=== PATIENT | female | born 1985 | race Caucasian/White ===

== ENCOUNTER 2018-03-09 04:33 | Emergency (ER) | payer OTHER, SELFPAY ==
[2018-03-09 05:00] LABS: Absolute Lymphocytes (CBC) 3.1 K/uL (0.7-4.9); Absolute Monocytes 0.6 K/uL (0.1-1.3); Absolute Neutrophil 4.7 K/uL (1.8-8.0); Basophils % 0.9 % (0-1.3); Eosinophils % 2.6 % (0-4.4); MCH 29.4 pg (27.0-35.0); MCV 86.9 fL (80-100); MPV 7.5 fL (7.6-11.3); Monocytes % 6.5 % (3.3-12.3); RBC Red Blood Cell Count 4.49 M/uL (3.86-4.86)
[2018-03-09] MEDS ORDERED: KETOROLAC 30 MG/ML INJ ONE (05:00)
[2018-03-09] MEDS ORDERED: METHYLPREDNISOLONE 125 MG INJ ONE (05:00)
[2018-03-09 05:07] LABS: Protime INR 0.99
[2018-03-09 05:20] LABS: ALT/SGPT 20 U/L (12-78); AST/SGOT 10 U/L (15-37); Albumin 3.3 g/dL (3.4-5.0); Alkaline Phosphatase 88 U/L (45-117); BUN Blood Urea Nitrogen 12 mg/dL (7-18); Bicarbonate 28 mmol/L (21-32); Bilirubin Direct < 0.1 mg/dL (0-0.2); Bilirubin Total 0.2 mg/dL (0.2-1.0); Glucose Level 95 mg/dL (74-106); Magnesium 1.9 mg/dL (1.8-2.4); NT PRO-BNP 98 pg/mL (<125); Potassium 3.8 mmol/L (3.5-5.1); Protein, Total 6.6 g/dL (6.4-8.2); Sodium Level 141 mmol/L (136-145)
--- NOTE | 2018-03-09 06:48 | EKG ---
Test Date: 2018-03-09 Test Time: 04:45:57 Block Mason: ARNIE MEASUREMENT RESULTS: Intervals: Rate: 66 KS: 192 QRSD: 96 QT: 432 QTc: 452 [place]: P: 48 KS: 192 QRS: 103 T: 60 INTERPRETIVE STATEMENTS: Normal sinus rhythm Rightward axis Nonspecific ST and T wave abnormality Abnormal ECG No previous ECG available for comparison Electronically Signed On 03-09-18 06:47:28 CDT by Miguel A Rodrigez
--- NOTE | 2018-03-09 07:19 | EDPHYS ---
Physician Documentation [facility] Name: Mony Jones Age: 32 yrs Sex: Female : 1985 Arrival Date: 03/09/2018 Time: 04:33 Bed 7 Private MD: ED Physician Andrew Yusuf HPI: 03/09 04:53 This 32 yrs old Female presents to ER via Ambulatory with complaints of PAIN kdr IN CHEST. 04:53 The patient or guardian reports chest pain that is located primarily in the anterior kdr chest wall, right. The pain does not radiate. Associated signs and symptoms: The patient has no apparent associated signs or symptoms. The chest pain is described as sharp, stabbing. Duration: The patient or guardian reports multiple episodes, that are intermittent, that wax and wane, with no pattern. Modifying factors: The symptoms are alleviated by nothing. the symptoms are aggravated by nothing. Severity of pain: At its worst the pain was mild moderate just prior to arrival. The patient has not experienced similar symptoms in the past. The patient has not recently seen a physician. Pain began at 1800 last night. 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 - Social history:: Smoking status: Patient uses tobacco products, smokes one pack cigarettes per day. Patient/guardian denies using alcohol, street drugs. - Ebola Screening: : No symptoms or risks identified at this time. ROS: 04:53 Constitutional: Negative for fever, chills, and weight loss, Eyes: Negative for injury, kdr pain, redness, and discharge, ENT: Negative for injury, pain, and discharge, Neck: Negative for injury, pain, and swelling, Respiratory: Negative for shortness of breath, cough, wheezing, and pleuritic chest pain, Abdomen/GI: Negative for abdominal pain, nausea, vomiting, diarrhea, and constipation, Back: Negative for injury and pain, : Negative for injury, bleeding, discharge, and swelling, MS/Extremity: Negative for injury and deformity, Skin: Negative for injury, rash, and discoloration, Neuro: Negative for headache, weakness, numbness, tingling, and seizure activity. Psych: Negative for depression, anxiety, suicide ideation, homicidal ideation, and hallucinations, Allergy/Immunology: Negative for hives, rash, and allergies, Endocrine: Negative for neck swelling, polydipsia, polyuria, polyphagia, and marked weight changes, Hematologic/Lymphatic: Negative for swollen nodes, abnormal bleeding, and unusual bruising. 04:53 Cardiovascular: Positive for chest pain, Negative for edema, orthopnea, palpitations, paroxysmal nocturnal dyspnea. Exam: 04:53 Constitutional: This is a well developed, well nourished patient who is awake, alert, kdr and in no acute distress. Head/Face: Normocephalic, atraumatic. Eyes: Pupils equal round and reactive to light, extra-ocular motions intact. Lids and lashes normal. Conjunctiva and sclera are non-icteric and not injected. Cornea within normal limits. Periorbital areas with no swelling, redness, or edema. Neck: Trachea midline, no thyromegaly or masses palpated, and no cervical lymphadenopathy. Supple, full range of motion without nuchal rigidity, or vertebral point tenderness. No Meningismus. Chest/axilla: Normal chest wall appearance and motion. Nontender with no deformity. No lesions are appreciated. Cardiovascular: Regular rate and rhythm with a normal S1 and S2. No gallops, murmurs, or rubs. Normal PMI, no JVD. No pulse deficits. Respiratory: Lungs have equal breath sounds bilaterally, clear to auscultation and percussion. No rales, rhonchi or wheezes noted. No increased work of breathing, no retractions or nasal flaring. Abdomen/GI: Soft, non-tender, with normal bowel sounds. No distension or tympany. No guarding or rebound. No evidence of tenderness throughout. Back: No spinal tenderness. No costovertebral tenderness. Full range of motion. Skin: Warm, dry with normal turgor. Normal color with no rashes, no lesions, and no evidence of cellulitis. MS/ Extremity: Pulses equal, no cyanosis. Neurovascular intact. Full, normal range of motion. Neuro: Awake and alert, GCS 15, oriented to person, place, time, and situation. Cranial nerves II-XII grossly intact. Motor strength 5/5 in all extremities. Sensory grossly intact. Cerebellar exam normal. Normal gait. Psych: Awake, alert, with orientation to person, place and time. Behavior, mood, and affect are within normal limits. Vital Signs: 04:47 BP 140 / 78; Pulse 65; Resp 16 S; Temp 97.9(O); Pulse Ox 97% on R/A; Weight 127.01 kg bb (R); Height 5 ft. 6 in. (167.64 cm) (R); Pain 5/10; 05:36 BP 126 / 72; Pulse 60; Resp 14; Pulse Ox 95% ; bp 06:41 BP 128 / 74; Pulse 51; Resp 13; Pulse Ox 95% ; bp 04:47 Body Mass Index 45.19 (127.01 kg, 167.64 cm) bb MDM: 04:53 Data reviewed: vital signs, nurses notes, lab test result(s), EKG, radiologic studies. kdr Counseling: I had a detailed discussion with the patient and/or guardian regarding: the historical points, exam findings, and any diagnostic results supporting the discharge/admit diagnosis, lab results, radiology results, the need for outpatient follow up. 07:18 Patient medically screened. kdr 03/09 04:48 Order name: Basic Metabolic Panel; Complete Time: 07:11 kdr 03/09 04:48 Order name: CBC with Diff; Complete Time: 07: kdr 03/09 04:48 Order name: LFT's; Complete Time: 07: kdr 03/09 04:48 Order name: Magnesium; Complete Time: 07:11 kdr 03/09 04:48 Order name: NT PRO-BNP; Complete Time: 07:11 kdr 03/09 04:48 Order name: PT-INR; Complete Time: 07:11 kdr 03/09 04:48 Order name: Ptt, Activated; Complete Time: 07:11 kdr 03/09 04:48 Order name: Troponin (emerg Dept Use Only); Complete Time: 07:11 kdr 03/09 04:48 Order name: XRAY Chest (1 view) kdr 03/09 04:48 Order name: EKG; Complete Time: 04:49 kdr 03/09 04:48 Order name: Cardiac monitoring; Complete Time: 04:49 kdr 03/09 04:48 Order name: EKG - Nurse/Tech; Complete Time: 04:49 [facility] 03/09 04:48 Order name: IV Saline Lock; Complete Time: 04:52 kdr 03/09 04:48 Order name: Labs collected and sent; Complete Time: 04:52 kdr 03/09 04:48 Order name: O2 Per Protocol; Complete Time: 04:49 [facility] 03/09 04:48 Order name: O2 Sat Monitoring; Complete Time: 04:50 kdr Administered Medications: 05:01 Drug: TORadol 30 mg Route: IVP; Site: right antecubital; bp 05:04 Follow up: Response: Pain is decreased bp 05:01 Drug: SOLU-Medrol 125 mg Route: IVP; Site: right antecubital; bp 05:03 Follow up: Response: No adverse reaction bp 07:30 Drug: Flexeril 10 mg Route: PO; sg Disposition: 03/09/18 07:18 Discharged to Home. Impression: Chest pain, unspecified. - Condition is Stable. - Discharge Instructions: Nonspecific Chest Pain, [id number]. - Prescriptions for Tramadol 50 mg Oral Tablet - take 1 tablet by ORAL route every 8 hours as needed; 12 tablet. - Work release form, Medication Reconciliation Form, Thank You Letter form. - Follow up: Private Physician; When: 2 - 3 days; Reason: If symptoms return, Further diagnostic work-up, Recheck today's complaints, Continuance of care, Re-evaluation by your physician. - Problem is new. - Symptoms have improved. Signatures: Dispatcher [employer] Kendell Rodríguez RN RN Andrew Bland MD MD kdr Ballard, Brenda, RN RN Yayo Gonzalez MD MD gs Peltier, Brian, RN RN bp Corrections: (The following items were deleted from the chart) 07:33 07:18 03/09/2018 07:18 Discharged to Home. Impression: Chest pain, unspecified. sg Condition is Stable. Forms are Medication Reconciliation Form, Thank You Letter, Antibiotic Education, Prescription Opioid Use. Follow up: Private Physician; When: 2 - 3 days; Reason: If symptoms return, Further diagnostic work-up, Recheck today's complaints, Continuance of care, Re-evaluation by your physician. Problem is new. Symptoms have improved. kdr
--- NOTE | 2018-03-09 07:19 | ER ---
Nurse's Notes [facility] Name: Mony Jones Age: 32 yrs Sex: Female : 1985 Arrival Date: 03/09/2018 Time: 04:33 Bed 7 Private MD: Diagnosis: Chest pain, unspecified Presentation: 03/09 04:44 Presenting complaint: Patient states: she started having right sided, non-radiating bb chest pain at approx 1800 last night. the pain is sharp and intermittent on 5 minute intervals, pt was not doing anything when the pain started denies N/V/D, SOB, said she came to ED because the pain is not going away. did not take any medications. Transition of care: patient was not received from another setting of care. Onset of symptoms was March 08, 2018 at 18:00. Risk Assessment: Do you want to hurt yourself or someone else? Patient reports no desire to harm self or others. Initial Sepsis Screen: Does the patient meet any 2 criteria? No. Patient's initial sepsis screen is negative. Does the patient have a suspected source of infection? No. Patient's initial sepsis screen is negative. Care prior to arrival: None. 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 - Social history:: Smoking status: Patient uses tobacco products, smokes one pack cigarettes per day. Patient/guardian denies using alcohol, street drugs. - Ebola Screening: : No symptoms or risks identified at this time. Screenin:02 Abuse screen: Denies threats or abuse. Denies injuries from another. Nutritional bp screening: No deficits noted. Tuberculosis screening: No symptoms or risk factors identified. Fall Risk None identified. Assessment: 04:50 General: Appears in no apparent distress. comfortable, obese, Behavior is calm, bp cooperative, appropriate for age. Pain: Denies pain. Neuro: Level of Consciousness is awake, alert, obeys commands, Oriented to person, place, time, situation, Appropriate for age. Cardiovascular: Rhythm is sinus rhythm. Respiratory: Airway is patent Respiratory effort is even, unlabored, Respiratory pattern is regular, symmetrical. GI: No signs and/or symptoms were reported involving the gastrointestinal system. : No signs and/or symptoms were reported regarding the genitourinary system. EENT: No deficits noted. Derm: No deficits noted. Musculoskeletal: Circulation, motion, and sensation intact. Range of motion: intact in all extremities. 05:35 Reassessment: ALL CURRENT ORDERS COMPLETED, VS STABLE ON MONITOR. bp 06:40 Reassessment: DISPO PENDING, PT RESTING QUIETLY, VS STABLE, SR WITH INTERMITTENT SB ON bp MONITOR. Vital Signs: 04:47 BP 140 / 78; Pulse 65; Resp 16 S; Temp 97.9(O); Pulse Ox 97% on R/A; Weight 127.01 kg bb (R); Height 5 ft. 6 in. (167.64 cm) (R); Pain 5/10; 05:36 BP 126 / 72; Pulse 60; Resp 14; Pulse Ox 95% ; bp 06:41 BP 128 / 74; Pulse 51; Resp 13; Pulse Ox 95% ; bp 04:47 Body Mass Index 45.19 (127.01 kg, 167.64 cm) bb ED Course: 04:33 Patient arrived in ED. es 04:38 Andrew Yusuf MD is Attending Physician. kdr 04:42 Declan Elliott, RN is Primary Nurse. bp 04:46 Triage completed. bb 04:47 Arm band placed on Patient placed in an exam room, on a stretcher, on desk monitor, bb on pulse oximetry. EKG completed in triage. Results shown to MD. 04:52 Inserted saline lock: 20 gauge in left antecubital area, using aseptic technique. Blood bp collected. 05:02 Patient has correct armband on for positive identification. Placed in gown. Bed in low bp position. Call light in reach. Side rails up X2. 05:03 phototypesetting equipment monitor on. Pulse ox on. NIBP on. bp 05:10 X-ray completed. Portable x-ray completed in exam room. Patient tolerated procedure kw well. 05:11 XRAY Chest (1 view) In Process Unspecified. EDMS 07:33 No provider procedures requiring assistance completed. IV discontinued, intact, sg bleeding controlled, No redness/swelling at site. Pressure dressing applied. Administered Medications: 05:01 Drug: TORadol 30 mg Route: IVP; Site: right antecubital; bp 05:04 Follow up: Response: Pain is decreased bp 05:01 Drug: SOLU-Medrol 125 mg Route: IVP; Site: right antecubital; bp 05:03 Follow up: Response: No adverse reaction bp 07:30 Drug: Flexeril 10 mg Route: PO; sg Outcome: 07:18 Discharge ordered by . kdr 07:32 Discharged to home ambulatory, with family. sg 07:32 Condition: good 07:32 Discharge instructions given to patient, Instructed on discharge instructions, follow up and referral plans. medication usage, safety practices, Demonstrated understanding of instructions, follow-up care, medications, Prescriptions given X 1. 07:33 Patient left the ED. sg Signatures: Dispatcher [employer] Kendell Rodríguez RN RN sg Andrew Yusuf MD MD kdr Salyer, Edna es Ballard, Brenda RN RN Sharon Westfall Brian RN RN bp
[2018-03-09] MEDS ORDERED: CYCLOBENZAPRINE 10 MG TAB ONE (07:30)
[2018-03-09 07:38] VITALS: TEMP 97.9
[2018-03-09 07:39] VITALS: O2SAT 95
[2018-03-09 07:40] VITALS: BP 128/74
--- NOTE | 2018-03-09 08:15 | RAD REPORT ---
EXAM DESCRIPTION: Lynn Single View03/09/2018 5:13 am CLINICAL HISTORY: Chest pain COMPARISON: September 2017 FINDINGS: The lungs appear clear of acute infiltrate. The heart is mildly enlarged IMPRESSION: No acute abnormalities displayed
== END 2018-03-09 07:33 | disposition home or self-care (01) ==
LOC: ER 04:33
DX: R07.9 Chest pain, unspecified (principal); F17.210 Nicotine dependence, cigarettes, uncomplicated
CPT/HCPCS: 36415; 71045; 80048; 80076; 83735; 83880; 84484; 85025; 85610; 85730; 93005; 96374; 96375; 99284; J2930

== ENCOUNTER 2024-01-08 06:50 | Inpatient (IN) | payer OTHER, SELFPAY ==
--- OUTSIDE RECORDS SUMMARY | 2024-01-08 06:55 | XMS REPORT | Continuity of Care Document ---
Author Name Unknown Address [address] [place] [address] [facility] Address [address] [place] [address] Care Team Providers Care Content Strategy Lead Name Role Phone Pcp, Patient Does Not Have A Primary Care Physic hany Lucita Jason Attending Clinician Unavail able Deb Garcia Attending Clinician Unavailable MERARY HADLEY Attending Clinician Unavailable Troy Louis Attending Clinician Unavailable UNKNOWN Attending Clinician Unavailable Delta Barriga Attending Clinician Unavailable Doctor Unassigned, [place] Attending Clinician U Kvng Temple Attending Clinician + [phone] YASMIN BELTRE Attending Clinician Unavailable Yasmin Beltre PA-C Attending Clinician [phone], [facility] Lab Attending Clinician Unavailable MERARY HADLEY Admitting Clinician Unavailable Troy Louis Admitting Clinician Unavailable Delta Barriga Admitting Clinician Unavailable YASMIN BELTRE Admitting Clinician Unavailable Payers Payer Name Policy Type Policy Number Effective Date Expirati on Date Source [facility] Gold 53 [id number] 2023 00:00:00 [facility] Gold 53 [id number] [facility] Problems Condition Name Condition Details Condition Category Status Onset Date Resolution Date Last Treatment Date Treating Clinician Comments Source Morbid obesity with body mass index of 50 or higher Morbid obesity with body mass index of 50 or higher Disease Active 10-17 00:00: 00 [facility] [id number] Hypersomni a Problem [facility] [id number] Morbid (severe) obesity due to excess calories Problem [facility] [id number] Body mass index [BMI] 50.0-59.9, adult Problem [facility] [id number] Severe major depression Problem [facility] Tobacco user Smokes 1 pack of cigarettes per day Problem [facility] [id number] Multiple subsegment al pulmonary emboli without acute cor pulmonale Problem [facility] [id number] Presence of vena cava filter Problem [facility] [id number] Atypical squamous cells cannot exclude high grade squamous intraepith elial lesion on cytologic smear of cervix (ASC-H) Problem [facility] Allergies, Adverse Reactions, Alerts Allergy Name Allergy Type Status Severity Reaction(s) Onset Date Inactive Date Treating Clinician Comments Source heparin DA Active U Heparin induced antibody + 2021-08 2- 00:00: 00 [facility] No Known Allergie s DA Active U 2021-08 0 00:00: 00 [facility] NO KNOWN ALLERGIE S Drug Class Active [facility] heparin heparin Active Unknown [facility] Social History Social Habit Start Date Stop Date Quantity Comments Source Sex Assigned At [facility] History of Tobacco Use Current Smoker [facility] Exposure to SARS-CoV-2 (event) 2022-04-12 00:00:00 2022-04-22 09:57:00 Not sure [facility] Cigarettes smoked current (pack per day) - Reported 2022-04-22 00:00:00 2022-04-22 00:00:00 [facility] Tobacco use and exposure 2022-04-22 00:00:00 2022-04-22 00:00:00 Smokeless tobacco non-user [facility] Alcohol intake 2022-04-22 00:00:00 2022-04-22 00:00:00 Ex-drinker (finding) [facility] Smoking Status Start Date Stop Date Source Former Smoker 2023-12-24 00:00:00 2023-12-24 00:00:00 [facility] Current Smoker 2022-09-30 00:00:00 [facility] Medications Ordered Medication Name Filled Medication Name Start Date Stop Date Current Medication? Ordering Clinician Indication Dosage Frequency Signature (SIG) Comments Components Source Lasix 20 MG Lasix 20 MG 12-23 00:00: 00 No 1{table t} QD Lasix 20 MG Eliquis 5 MG Eliquis 5 MG 09-01 00:00: 00 No 1{table t} BID Eliquis 5 MG Eliquis 5 MG Eliquis 5 MG 09-01 00:00: 00 No 1{table t} BID Eliquis 5 MG Wellbutrin XL 300 MG Wellbutrin XL 300 MG 05-08 00:00: 00 No 1{table t_in_th e_morni ng} QD Wellbutrin XL 300 MG Wellbutrin XL 300 MG Wellbutrin XL 300 MG 2021-0 05-08 00:00: 00 No 1{table t_in_th e_morni ng} QD Wellbutrin XL 300 MG Wellbutrin XL 300 MG Wellbutrin XL 300 MG 2021-0 05-08 00:00: 00 No 1{table t_in_th e_morni ng} QD Wellbutrin XL 300 MG Wellbutrin XL 300 MG Wellbutrin XL 300 MG 2021-0 05-08 00:00: 00 No 1{table t_in_th e_morni ng} QD Wellbutrin XL 300 MG Wellbutrin XL 300 MG Wellbutrin XL 300 MG 05-08 00:00: 00 No 1{table t_in_th e_morni ng} QD Wellbutrin XL 300 MG Wellbutrin XL 300 MG Wellbutrin XL 300 MG 05-08 00:00: 00 No 1{table t_in_th e_morni ng} QD Wellbutrin XL 300 MG miSOPROStoL 200 mcg tablet 04-22 00:00: 00 Yes [id number] Take one tablet night before procedure, then take one tablet morning of procedure [facility] Wellbutrin XL 150 MG Wellbutrin XL 150 MG 04-10 00:00: 00 No 1{table t_in_th e_morni ng} QD Wellbutrin XL 150 MG buPROPion XL 150 mg 24 hr tablet 04-10 00:00: 00 Yes 150mg Take 150 mg by mouth every morning. [facility] Dexamethaso ne Dexamethaso ne 09-25 00:00: 00 No 8mg [facility] Dexamethaso ne Dexamethaso ne 09-25 00:00: 00 No 8mg [facility] Dexamethaso ne Dexamethaso ne 09-25 00:00: 00 No 8mg [facility] Dexamethaso ne Dexamethaso ne 09-25 00:00: 00 No 8mg [facility] Dexamethaso ne Dexamethaso ne 09-25 00:00: 00 No 8mg [facility] Dexamethaso ne Dexamethaso ne 09-25 00:00: 00 No 8mg [facility] naproxen sodium 550 mg tablet 2016-08 00:00: 00 Yes 550mg Take 1 tablet by mouth 2 (two) times daily with meals. [facility] cyclobenzap rine 10 mg tablet 2016-08 00:00: 00 Yes 10mg Take 1 tablet by mouth 3 (three) times daily. [facility] Tylenol Tylenol No Tylenol Tylenol Tylenol No Tylenol Tylenol Tylenol No Tylenol Tylenol Tylenol No Tylenol Tylenol Tylenol No Tylenol Tylenol Tylenol No Tylenol Vital Signs Vital Name Observation Time Observation Value Comments Nathanael wild height 2023-12-24 08:20:00 67.5 [in_i] Comm on [facility] weight 2023-12-24 08:20:00 364 [lb_av] Comm on [facility] temperature 2023-12-24 08:20:00 98.7 [degF] Com [facility] bmi 2023-12-24 08:20:00 56.16 kg/m2 Comm on [facility] oximetry 2023-12-24 08:20:00 90 % Commo n [facility] blood pressure systolic 2023-12-24 08:20:00 130 mm[Hg] [facility] blood pressure diastolic 2023-12-24 08:20:00 60 mm[Hg] [facility] height 2022-08-02 11:00:00 67.5 [in_i] Comm on [facility] weight 2022-08-02 11:00:00 337 [lb_av] Comm on [facility] temperature 2022-08-02 11:00:00 97.4 [degF] Com [facility] bmi 2022-08-02 11:00:00 52 kg/m2 Commo n [facility] oximetry 2022-08-02 11:00:00 95 % Commo n [facility] respiratory rate 2022-08-02 11:00:00 17 /min [facility] blood pressure systolic 2022-08-02 11:00:00 138 mm[Hg] [facility] blood pressure diastolic 2022-08-02 11:00:00 63 mm[Hg] [facility] height 2022-07-08 11:40:00 67.5 [in_i] Comm on [facility] weight 2022-07-08 11:40:00 340.6 [lb_av] Co on [facility] temperature 2022-07-08 11:40:00 97.4 [degF] Com mon [facility] bmi 2022-07-08 11:40:00 52.55 kg/m2 Comm on [facility] oximetry 2022-07-08 11:40:00 92 % Commo n [facility] respiratory rate 2022-07-08 11:40:00 18 /min Common [facility] blood pressure systolic 2022-07-08 11:40:00 136 mm[Hg] Common [facility] blood pressure diastolic 2022-07-08 11:40:00 88 mm[Hg] Common [facility] height 2022-04-10 10:00:00 67.5 [in_i] Comm on [facility] weight 2022-04-10 10:00:00 351.2 [lb_av] Co mmon [facility] temperature 2022-04-10 10:00:00 97.6 [degF] Com mon [facility] bmi 2022-04-10 10:00:00 54.19 kg/m2 Comm on [facility] oximetry 2022-04-10 10:00:00 94 % Commo n [facility] respiratory rate 2022-04-10 10:00:00 18 /min Common [facility] blood pressure systolic 2022-04-10 10:00:00 134 mm[Hg] [facility] diastolic 2022-04-10 10:00:00 86 mm[Hg] [facility] Procedures Procedure Date / Time Performed Performing Clinician Source [id number] 2022-07-25 00:00:00 AUGUSTO [facility] [id number] 2022-07-25 00:00:00 [facility] [id number] 2022-07-25 00:00:00 [facility] [id number] 2022-07-25 00:00:00 [facility] [id number] 2022-07-23 00:00:00 [facility] [id number] 2022-07-23 00:00:00 [facility] [id number] 2022-07-23 00:00:00 [facility] [id number] 2022-07-23 00:00:00 [facility] [id number] 2022-07-23 00:00:00 [facility] [id number] 2022-07-23 00:00:00 [facility] AUTHORIZATION FOR RELEASE OF PHI 2022-05-27 05:01:00 Doctor Unassigned, [place] [facility] AUTHORIZATION TO RELEASE PHI TO [facility] 2022-05-14 05:01:00 Doctor Unassigned, [place] [facility] US PELVIS COMPLETE WITH TRANSVAGINAL 2022-05-03 14:25:04 Marisol [facility] FREE T4 2022-04-30 15:23:00 Deb Garcia [facility] THYROID STIMULATING HORMONE 2022-04-30 15:23:00 Marisol [facility] COMP. METABOLIC PANEL ([id number]) 2022-04-30 15:23:00 Deb Garcia [facility] CBC WITH DIFF 2022-04-30 15:23:00 Deb [facility]Grcia [facility] GLYCOSYLATED HEMOGLOBIN (A1C) 2022-04-30 15:23:00 Deb Garcia [facility] PHYSICIAN ORDERS 2022-04-30 05:01:00 Doctor Unas signed, [place] [facility] Encounters Start Date/Time End Date/Time Encounter Type Admission Type Attending [facility] Care Facility Care Department Encounter ID Source 2023-12-24 14:05:00 Outpatient Lucita Jason [facility] [id number] [facility] 2023-12-23 11:11:00 Outpatient Lucita Jason [facility] [id number] [facility] 2022-09-27 08:44:01 Outpatient Deb Garcia [facility] [id number] [facility] 2022-08-30 12:47:00 Outpatient GarciaGirishi STLMLC ST[facility] [id number] [facility] 2022-08-28 11:04:04 Outpatient GarciaGirishi STLMLC ST[facility] [id number] [facility] 2022-08-23 13:47:00 Outpatient Deb Garcia ST[facility] ST[facility] [id number] [facility] 2022-08-02 08:26:02 Outpatient GarciaGirish shermani STL[facility]C ST[facility] [id number] [facility] 2022-07-16 13:00:01 Outpatient GarciaGirish shermani STL[facility]C ST[facility] [id number] [facility] 2022-07-05 13:04:01 Outpatient Girish Garciai STLMLC STL[facility] [id number] [facility] 2022-07-04 14:09:05 Outpatient GarciaGirishi STLMLC STL[facility]C [id number] [facility] 2022-05-06 14:10:02 Outpatient Garcia, Deb STLMLC ST[facility]C [id number] [facility] 2022-04-25 11:01:02 Outpatient Girish Garciai STL[facility] ST[facility] [id number] [facility] 2022-04-09 10:42:04 Outpatient GarciaGirishi STLMLC STL[facility]C [id number] [facility] 2023-12-24 00:00:00 2023-12-24 00:00:00 OFFICE VISIT NEW PT LEVEL 4 [facility]MLC STL[facility]C [id number] [facility] 2023-12-24 00:00:00 2023-12-24 00:00:00 (TEL) STLMLC STLMLC [id number] [facility] 2023-12-17 00:00:00 2023-12-17 00:00:00 (TEL) STLMLC STLMLC [id number] [facility] 2022-11-11 11:30:00 2022-11-11 11:30:00 Inpatient MERARY LOPEZ HCAPM ECHO [id number] [facility] 2022-08-29 00:00:00 2022-08-29 00:00:00 (TEL) STLMLC STLMLC [id number] [facility] 2022-08-21 00:00:00 2022-08-21 00:00:00 (TEL) STLMLC STLMLC [id number] [facility] 2022-08-02 00:00:00 2022-08-02 00:00:00 OFFICE VISIT ESTAB PT LEVEL 4 [facility]C ST[facility]C [id number] [facility] 2022-07-22 22:04:00 2022-07-31 13:55:00 Inpatient Troy Arroyo HCAWU INTE.02 [id number] [facility] 2022-07-08 00:00:00 2022-07-08 00:00:00 OFFICE VISIT ESTAB PT LEVEL 4 [facility]C STLMLC [id number] [facility] 2022-06-25 05:15:00 2022-06-25 05:15:00 Outpatient Delta Cordova HCAWH DAYS [id number] [facility] 2022-06-18 00:00:00 2022-06-18 00:00:00 (TEL) STLMLC STLMLC [id number] [facility] 2022-05-27 00:00:00 2022-05-27 00:00:00 Orders Only Doctor Unassigned, [place] [facility] 1.114 [id number] [facility] 2022-05-14 00:00:00 2022-05-14 00:00:00 Orders Only Doctor Unassigned, [place] [facility] 1..114 350.1.13.10 [id number] [id number] [facility] 2022-05-08 00:00:00 2022-05-08 00:00:00 Telephone Kvng Deleon [facility] AD COPY WRITER [facility] 1.84.114 [id number] [id number] [facility] 2022-05-08 00:00:00 2022-05-08 00:00:00 OFFICE VISIT ESTAB PT LEVEL 4 [facility] ST[facility] [id number] [facility] 2022-05-03 08:46:45 2022-05-03 23:59:00 Outpatient Svitlana BELTRE [facility] [id number] [facility] 2022-05-03 08:45:00 2022-05-03 23:59:00 Hospital Encounter Yasmin Beltre [facility] [id number] [id number] [id number] [id number] [facility] 2022-05-03 00:00:00 2022-05-03 00:00:00 Outpatient Svitlana BELTRE [facility] [id number] [facility] 2022-04-30 10:00:00 2022-04-30 11:10:47 Cut Out Stitcher Visit 2, Adc Lab Marisol [facility] 1.840.114 350.1.13.10 4.2.7.2.686 [id number] [facility] 2022-04-30 10:00:00 2022-04-30 10:00:00 Outpatient R YASMIN BELTRE [facility] [id number] [facility] 2022-04-30 00:00:00 2022-04-30 00:00:00 Orders Only Doctor Unassigned, [place] [facility] [id number] 350.1.13.10 4.2.7.2.686 [id number] [facility] 2022-04-22 10:00:00 2022-04-22 11:05:52 Office Visit [facility] 1..840.114 350.1.13.10 [id number] [id number] [facility] 2022-04-22 10:00:00 2022-04-22 11:05:52 [facility] [id number] [facility] 2022-04-22 10:00:00 2022-04-22 11:05:52 Outpatient YASMIN VAUGHAN [facility] [id number] [facility] 2022-04-10 00:00:00 2022-04-10 00:00:00 OFFICE VISIT [id number] Results Test Description Test Time Test Comments Results Result Co mments Source DIFFERENTIAL [id number] 14:48:00* Test Item Value Reference Range Interpretation Comme nts RBC MORPHOLOGY REQUIRED (marcos t code = RBCM) ABNORMAL PLATELET ESTIMATE (test code = PLTEST) ADEQUATE ADEQUATE PLATELET MORPHOLOGY (test co de = PLTMORPH) NORMAL NORMAL POLYCHROMASIA (test code = POLC) FEW NONE POIKILOCYTOSIS (test code = POIK) FEW NONE ANISOCYTOSIS (test code = ANISO) MODERATE NONE OVALOCYTES (test code = OVAL) FEW NONE CBC W/AUTO [id number] 13:50:00* Test Item Value Reference Range Interpretation Comme nts WHITE BLOOD CELL (test code = WBC) 6.8 K/MM3 3.8-9.8 N RED BLOOD CELL (test code = RBC) 3.54 M/MM3 3.58-4.97 L HEMOGLOBIN (test code = HGB) 7.8 G/DL 11.2-14.9 L HEMATOCRIT (test code = HCT) 28.0 % 33.2-43.5 L MEAN CELL VOLUME (test code = MCV) 79 fL 80.7-99.1 L MEAN CELL HGB (test code = MCH) 22.0 pg 27.0-34.1 L MEAN CELL HGB CONCETRATION (test code = MCHC) 27.9 % 32.2-35.7 L RED CELL DISTRIBUTION WIDTH (test code = RDW) 19.9 % 12.1-15.2 H PLATELET COUNT (test code = PLT) 254 K/MM3 129-368 N MEAN PLATELET VOLUME (test c ode = MPV) 9.2 fl 7.4-10.4 N NEUTROPHIL % (test code = NT%) 63.2 % 43-75 N IMMATURE GRANULOCYTE % (test code = IG%) 0.7 % 0.0-2.0 N LYMPHOCYTE % (test code = LY%) 22.6 % 14-44 N MONOCYTE % (test code = MO%) 9.4 % 4-13 N EOSINOPHIL % (test code = EO%) 3.5 % 0-6 N BASOPHIL % (test code = BA%) 0.6 % 0-2 N NUCLEATED RBC % (test code = NRBC%) 0.6 % 0-1.0 N NEUTROPHIL # (test code = NT#) 4.29 K/mm3 2.0-7.6 N IMMATURE GRANULOCYTE # (test code = IG#) 0.05 x10 3/uL 0-0.03 H LYMPHOCYTE # (test code = LY#) 1.54 K/mm3 1.0-3.8 N MONOCYTE # (test code = MO#) 0.64 K/mm3 0.1-0.8 N EOSINOPHIL # (test code = EO#) 0.24 K/mm3 0.0-0.2 H BASOPHIL # (test code = BA#) 0.04 K/mm3 0.0-0.2 N NUCLEATED RBC # (test code = NRBC#) 0.04 K/mm3 0.0-0.1 N DIFFERENTIAL [id number] 13:50:00* Test Item Value Reference Range Interpretation Comme nts RBC MORPHOLOGY REQUIRED (marcos t code = RBCM) PLATELET ESTIMATE (test code = PLTEST) ADEQUATE PLATELET MORPHOLOGY (test co de = PLTMORPH) NORMAL [id number] 20:18:00* Test Item Value Reference Range Interpretation Comme nts HEMOGLOBIN (test code = HGB) 8.3 G/DL 11.2-14.9 L [id number] 12:37:00* Test Item Value Reference Range Interpretation Comme nts FERRITIN (test code = OREN) 9.5 NG/ML 6.24-137 N FE W/TOTAL IRON BINDING CAP.2022-07-29 12:12:00* Test Item Value Reference Range Interpretation Comme nts SERUM IRON (test code = IRON) 10 MCG/DL 37-170 L TOTAL IRON BINDING CAPACITY (test code = TIBC) 388 MCG/DL 265-497 N IRON SATURATION (test code = FESAT) 3 % 12-57 L CBC W/AUTO [id number] 06:01:00* Test Item Value Reference Range Interpretation Comme nts WHITE BLOOD CELL (test code = WBC) 6.9 K/MM3 3.8-9.8 N RED BLOOD CELL (test code = RBC) 3.30 M/MM3 3.58-4.97 L HEMOGLOBIN (test code = HGB) 7.0 G/DL 11.2-14.9 L HEMATOCRIT (test code = HCT) 25.5 % 33.2-43.5 L MEAN CELL VOLUME (test code = MCV) 77 fL 80.7-99.1 L MEAN CELL HGB (test code = MCH) 21.2 pg 27.0-34.1 L MEAN CELL HGB CONCETRATION (test code = MCHC) 27.5 % 32.2-35.7 L RED CELL DISTRIBUTION WIDTH (test code = RDW) 19.8 % 12.1-15.2 H PLATELET COUNT (test code = PLT) 215 K/MM3 129-368 N MEAN PLATELET VOLUME (test c ode = MPV) 9.0 fl 7.4-10.4 N NEUTROPHIL % (test code = NT%) 67.1 % 43-75 N IMMATURE GRANULOCYTE % (test code = IG%) 1.2 % 0.0-2.0 N LYMPHOCYTE % (test code = LY%) 21.0 % 14-44 N MONOCYTE % (test code = MO%) 7.4 % 4-13 N EOSINOPHIL % (test code = EO%) 2.9 % 0-6 N BASOPHIL % (test code = BA%) 0.4 % 0-2 N NUCLEATED RBC % (test code = NRBC%) 0.7 % 0-1.0 N NEUTROPHIL # (test code = NT#) 4.64 K/mm3 2.0-7.6 N IMMATURE GRANULOCYTE # (test code = IG#) 0.08 x10 3/uL 0-0.03 H LYMPHOCYTE # (test code = LY#) 1.45 K/mm3 1.0-3.8 N MONOCYTE # (test code = MO#) 0.51 K/mm3 0.1-0.8 N EOSINOPHIL # (test code = EO#) 0.20 K/mm3 0.0-0.2 N BASOPHIL # (test code = BA#) 0.03 K/mm3 0.0-0.2 N NUCLEATED RBC # (test code = NRBC#) 0.05 K/mm3 0.0-0.1 N DIFFERENTIAL [id number] 06:01:00* Test Item Value Reference Range Interpretation Comme nts RBC MORPHOLOGY REQUIRED (marcos t code = RBCM) PLATELET ESTIMATE (test code = PLTEST) ADEQUATE PLATELET MORPHOLOGY (test co de = PLTMORPH) NORMAL CBC W/AUTO [id number] 11:53:00* Test Item Value Reference Range Interpretation Comme nts WHITE BLOOD CELL (test code = WBC) 7.1 K/MM3 3.8-9.8 N RED BLOOD CELL (test code = RBC) 3.37 M/MM3 3.58-4.97 L HEMOGLOBIN (test code = HGB) 7.1 G/DL 11.2-14.9 L HEMATOCRIT (test code = HCT) 25.7 % 33.2-43.5 L MEAN CELL VOLUME (test code = MCV) 76 fL 80.7-99.1 L MEAN CELL HGB (test code = MCH) 21.1 pg 27.0-34.1 L MEAN CELL HGB CONCETRATION (test code = MCHC) 27.6 % 32.2-35.7 L RED CELL DISTRIBUTION WIDTH (test code = RDW) 19.1 % 12.1-15.2 H PLATELET COUNT (test code = PLT) 180 K/MM3 129-368 N MEAN PLATELET VOLUME (test c ode = MPV) 9.2 fl 7.4-10.4 N NEUTROPHIL % (test code = NT%) 72.4 % 43-75 N IMMATURE GRANULOCYTE % (test code = IG%) 1.8 % 0.0-2.0 N LYMPHOCYTE % (test code = LY%) 15.7 % 14-44 N MONOCYTE % (test code = MO%) 7.1 % 4-13 N EOSINOPHIL % (test code = EO%) 2.7 % 0-6 N BASOPHIL % (test code = BA%) 0.3 % 0-2 N NUCLEATED RBC % (test code = NRBC%) 0.7 % 0-1.0 N NEUTROPHIL # (test code = NT#) 5.11 K/mm3 2.0-7.6 N IMMATURE GRANULOCYTE # (test code = IG#) 0.13 x10 3/uL 0-0.03 H LYMPHOCYTE # (test code = LY#) 1.11 K/mm3 1.0-3.8 N MONOCYTE # (test code = MO#) 0.50 K/mm3 0.1-0.8 N EOSINOPHIL # (test code = EO#) 0.19 K/mm3 0.0-0.2 N BASOPHIL # (test code = BA#) 0.02 K/mm3 0.0-0.2 N NUCLEATED RBC # (test code = NRBC#) 0.05 K/mm3 0.0-0.1 N DIFFERENTIAL [id number] 11:53:00* Test Item Value Reference Range Interpretation Comme nts RBC MORPHOLOGY REQUIRED (marcos t code = RBCM) ABNORMAL PLATELET ESTIMATE (test code = PLTEST) ADEQUATE ADEQUATE PLATELET MORPHOLOGY (test co de = PLTMORPH) NORMAL NORMAL HYPOCHROMIA (test code = HYPO) SLIGHT NONE POIKILOCYTOSIS (test code = POIK) FEW NONE ANISOCYTOSIS (test code = ANISO) SLIGHT NONE MICROCYTOSIS (test code = MICR) FEW NONE OVALOCYTES (test code = OVAL) FEW NONE CBC W/AUTO [id number] 08:58:00* Test Item Value Reference Range Interpretation Comme nts WHITE BLOOD CELL (test code = WBC) 8.1 K/MM3 3.8-9.8 N RED BLOOD CELL (test code = RBC) 3.44 M/MM3 3.58-4.97 L HEMOGLOBIN (test code = HGB) 7.1 G/DL 11.2-14.9 L HEMATOCRIT (test code = HCT) 25.7 % 33.2-43.5 L MEAN CELL VOLUME (test code = MCV) 75 fL 80.7-99.1 L MEAN CELL HGB (test code = MCH) 20.6 pg 27.0-34.1 L MEAN CELL HGB CONCETRATION (test code = MCHC) 27.6 % 32.2-35.7 L RED CELL DISTRIBUTION WIDTH (test code = RDW) 18.6 % 12.1-15.2 H PLATELET COUNT (test code = PLT) 162 K/MM3 129-368 N MEAN PLATELET VOLUME (test c ode = MPV) 9.1 fl 7.4-10.4 N NEUTROPHIL % (test code = NT%) 73.9 % 43-75 N IMMATURE GRANULOCYTE % (test code = IG%) 1.1 % 0.0-2.0 N LYMPHOCYTE % (test code = LY%) 15.7 % 14-44 N MONOCYTE % (test code = MO%) 5.9 % 4-13 N EOSINOPHIL % (test code = EO%) 3.0 % 0-6 N BASOPHIL % (test code = BA%) 0.4 % 0-2 N NUCLEATED RBC % (test code = NRBC%) 0.7 % 0-1.0 N NEUTROPHIL # (test code = NT#) 5.96 K/mm3 2.0-7.6 N IMMATURE GRANULOCYTE # (test code = IG#) 0.09 x10 3/uL 0-0.03 H LYMPHOCYTE # (test code = LY#) 1.27 K/mm3 1.0-3.8 N MONOCYTE # (test code = MO#) 0.48 K/mm3 0.1-0.8 N EOSINOPHIL # (test code = EO#) 0.24 K/mm3 0.0-0.2 H BASOPHIL # (test code = BA#) 0.03 K/mm3 0.0-0.2 N NUCLEATED RBC # (test code = NRBC#) 0.06 K/mm3 0.0-0.1 N DIFFERENTIAL [id number] 08:58:00* Test Item Value Reference Range Interpretation Comme nts RBC MORPHOLOGY REQUIRED (marcos t code = RBCM) PLATELET ESTIMATE (test code = PLTEST) ADEQUATE PLATELET MORPHOLOGY (test co de = PLTMORPH) NORMAL PTT [id number] 08:51:00* Test Item Value Reference Range Interpretation Comme nts PTT ACTIVATED (test code = APTT) 31.8 SECONDS 26.2-35.4 Comments to Coil 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: PLEASE DRAW LABS IN LEFT ARMHEPARIN INDUCED [id number] 05:39:00* Test Item Value Reference Range Interpretation Comme nts HEPARIN INDUCED THROMBOCYTOPEN (test code = HITAB) POSITIVE A Critical Value r eported toFirst Name:DOMINGO Last Name:JOHN READ BACK AND VERIFIEDby NShantalLAB.[facility] [place] @ 0334.The HIT (PF4) test is a qualitative, fully automated lateximmunoassay that detects, IgG, IgM and IgA associatedantibodies and is used as a primary screening assay for thedetection of Platelet Factor 4 Heparin-Dependent Antibodies.Positive or negative is the final interpreted result. Thepositive or negative result should be used with otherinformation, including the clinical context, in forming adiagnosis such as the 4T score and the 2013 [place] [employer] Hemat[employer] guidelines. NEGATIVE results indicate the absence of Platelet Factor 4Heparin-Dependent Antibodies to IgG, IgM or IgA. A negativeresult for anti-PF4 heparin antibodies can support theclinical decision to exclude the presence of HIT, andtherefore continue heparin treatment. POSITIVE results indicate the presence of Platelet Factor 4Heparin-Dependent Antibodies to IgG, IgM or IgA. Although apositive result obtained using this assay may indicate thepresence of heparin-associated antibodies, a positive resultDOES NOT CONFIRM the diagnosis of HIT. Confirmation with afunctional test is recommended. A clinical reassesmentsupported by laboratory data should be performed beforeconfirmation or exclusion of the diagnosis. Some patientsmay have naturally occurring antibodies to PF4. If clinically indicated, a repeat study is recommended in2-3 days after the patient has been off heparin for at least4 hours. UNABLE TO DRAW BLOOD, REASON: DO WITH 22OO PTT PER RNNOTIFIED PATIENT CARE STAFF: [facility] 07/25/22 AT 1810 BY Agnes AranaEPARIN INDUCED [id number] 05:39:00* Test Item Value Reference Range Interpretation Comme nts HEPARIN INDUCED AB (test code = HITAB) POSITIVE See_Comment A Critical Value r eported toFirst Name:DOMINGO Last Name:JOHN READ BACK AND VERIFIEDby SALINASMOMO, on 07/26/22, @ 6391.The HIT (PF4) test is a qualitative, fully automated lateximmunoassay that detects, IgG, IgM and IgA associatedantibodies and is used as a primary screening assay for thedetection of Platelet Factor 4 Heparin-Dependent Antibodies.Positive or negative is the final interpreted result. Thepositive or negative result should be used with otherinformation, including the clinical context, in forming adiagnosis such as the 4T score and the 2013 [place] Societyof Hematology guidelines. NEGATIVE results indicate the absence of Platelet Factor 4Heparin-Dependent Antibodies to IgG, IgM or IgA. A negativeresult for anti-PF4 heparin antibodies can support theclinical decision to exclude the presence of HIT, andtherefore continue heparin treatment. POSITIVE results indicate the presence of Platelet Factor 4Heparin-Dependent Antibodies to IgG, IgM or IgA. Although apositive result obtained using this assay may indicate thepresence of heparin-associated antibodies, a positive resultDOES NOT CONFIRM the diagnosis of HIT. Confirmation with afunctional test is recommended. A clinical reassesmentsupported by laboratory data should be performed beforeconfirmation or exclusion of the diagnosis. Some patientsmay have naturally occurring antibodies to PF4. If clinically indicated, a repeat study is recommended in2-3 days after the patient has been off heparin for at least4 hours. [Automated message] The system which generated this result transmitted reference range: (). The reference range was not used to interpret this result as normal/abnormal. UNABLE TO DRAW BLOOD, REASON: DO WITH 22OO PTT PER RNNOTIFIED PATIENT CARE STAFF: [facility] 07/25/22 AT 1810 BY David Arana [id number] 23:42:00* Test Item Value Reference Range Interpretation Comme nts PTT ACTIVATED (test code = APTT) 88.4 SECONDS 26.2-35.4 HH CALLED TO PageflakesShantal& READBACK ON 07/25/22 AT 2342 BY Kyle Rangel Comments to Coil 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: DRAW ON SERGIO [id number] 14:36:00* Test Item Value Reference Range Interpretation Comme nts ACT-ISTAT (test code = ACTI) 251 SEC 74-137 H [id number] 14:11:00* Test Item Value Reference Range Interpretation Comme nts ACT-ISTAT (test code = ACTI) 227 SEC 74-137 H [id number] 13:47:00* Test Item Value Reference Range Interpretation Comme nts ACT-ISTAT (test code = ACTI) 257 SEC 74-137 H [id number] 13:23:00* Test Item Value Reference Range Interpretation Comme nts ACT-ISTAT (test code = ACTI) 239 SEC 74-137 H BASIC METABOLIC [id number] 05:59:00* Test Item Value Reference Range Interpretation Comme nts SODIUM (test code = NA) 136 MMOL/L 137-145 L POTASSIUM (test code = K) 3.5 MMOL/L 3.5-5.1 N CHLORIDE (test code = CL) 103 MMOL/L 98-107 N CARBON DIOXIDE (test code = CO2) 29 MMOL/L 22-30 N ANION GAP (test code = GAP) 8 MMOL/L 14-24 L GLUCOSE (test code = GLU) 123 MG/DL 74-106 H BLOOD UREA NITROGEN (test code = BUN) 6 MG/DL 7-17 L GLOMERULAR FILTRATION RATE (test code = GFR) > 60 The Glomerular Filtration Rate is a calculated parameterbased on serum Creatinine, patient age and sex. GFR valuesless than 60 mL/min/1.73 square meters are indicative ofChronic Kidney Disease. Values less than 15 mL/min/1.73square meters indicate Kidney failure. The calculation forGFR is based on the CKD-EPI (2020) calculation. This formulais race indifferent and is the recommended formula for GFRby the National Kidney Foundation for Adults.The GFR will not calculate if the sex is unknown or if thepatient's age is <18 years. CREATININE (test code = CREAT) 0.80 MG/DL 0.52-1.04 N CALCIUM (test code = CA) 8.2 MG/DL 8.4-10.2 L PTT [id number] 05:42:00* Test Item Value Reference Range Interpretation Comme nts PTT ACTIVATED (test code = APTT) 66.6 SECONDS 26.2-35.4 HH CALLED TO ALANNAH Jerome& READBACK ON 07/25/22 AT 0542 BY Kyel Rangel CBC W/AUTO [id number] 05:35:00* Test Item Value Reference Range Interpretation Comme nts WHITE BLOOD CELL (test code = WBC) 8.6 K/MM3 3.8-9.8 N RED BLOOD CELL (test code = RBC) 3.45 M/MM3 3.58-4.97 L HEMOGLOBIN (test code = HGB) 7.0 G/DL 11.2-14.9 L HEMATOCRIT (test code = HCT) 25.8 % 33.2-43.5 L MEAN CELL VOLUME (test code = MCV) 75 fL 80.7-99.1 L MEAN CELL HGB (test code = MCH) 20.3 pg 27.0-34.1 L MEAN CELL HGB CONCETRATION (test code = MCHC) 27.1 % 32.2-35.7 L RED CELL DISTRIBUTION WIDTH (test code = RDW) 18.7 % 12.1-15.2 H PLATELET COUNT (test code = PLT) 181 K/MM3 129-368 N MEAN PLATELET VOLUME (test c ode = MPV) 9.7 fl 7.4-10.4 N NEUTROPHIL % (test code = NT%) 67.5 % 43-75 N IMMATURE GRANULOCYTE % (test code = IG%) 0.9 % 0.0-2.0 N LYMPHOCYTE % (test code = LY%) 23.2 % 14-44 N MONOCYTE % (test code = MO%) 5.5 % 4-13 N EOSINOPHIL % (test code = EO%) 2.5 % 0-6 N BASOPHIL % (test code = BA%) 0.4 % 0-2 N NUCLEATED RBC % (test code = NRBC%) 0.6 % 0-1.0 N NEUTROPHIL # (test code = NT#) 5.78 K/mm3 2.0-7.6 N IMMATURE GRANULOCYTE # (test code = IG#) 0.08 x10 3/uL 0-0.03 H LYMPHOCYTE # (test code = LY#) 1.98 K/mm3 1.0-3.8 N MONOCYTE # (test code = MO#) 0.47 K/mm3 0.1-0.8 N EOSINOPHIL # (test code = EO#) 0.21 K/mm3 0.0-0.2 H BASOPHIL # (test code = BA#) 0.03 K/mm3 0.0-0.2 N NUCLEATED RBC # (test code = NRBC#) 0.05 K/mm3 0.0-0.1 N DIFFERENTIAL [id number] 05:35:00* Test Item Value Reference Range Interpretation Comme nts RBC MORPHOLOGY REQUIRED (marcos t code = RBCM) PLATELET ESTIMATE (test code = PLTEST) ADEQUATE PLATELET MORPHOLOGY (test co de = PLTMORPH) NORMAL PTT [id number] 22:17:00* Test Item Value Reference Range Interpretation Comme nts PTT ACTIVATED (test code = APTT) 49.1 SECONDS 26.2-35.4 H Comments to Coil 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: DRAW ON LUE ONLYPTT [id number] 17:07:00* Test Item Value Reference Range Interpretation Comme nts PTT ACTIVATED (test code = APTT) 56.8 SECONDS 26.2-35.4 H PATIENT IS A HARD STICK. UNABLE TO GET BLOOD SAMPLE.NOTIFIED PATIENT CARE STAFF: LUIS 07/24/22 AT 1516 BY [id number] 14:57:00* Test Item Value Reference Range Interpretation Comme nts SURGICAL (test code = SR) RUN DATE: 07/24/22 [facility] - LAB PAGE 1 RUN TIME: 3287 Specimen Inquiry RUN USER: INTERFACE PATIENT: MONY OJNES LOC: [facility] U #: [id number] AGE/SX: 36/F [facility] DR: Oksana Angeles MD : 87 BED: A DIS: STATUS: ADM IN TLOC: SPEC #: [id number] RECD: 07/23/22 STATUS: DAVON REQ #: [id number] BHARGAVI: 07/23/22 [facility] DR: Oksana Angeles MD ENTERED: 07/23/22 SP TYPE: SURGICAL OTHR DR: Merary Hadley MD, Joshua MD R2 Leanna Dooley MD, Lance MD R2 Roberto Sy MD R1 Undefined ProviderORDERED: 15909/2, ANATOMIC SPEC, SPECIMEN TRACK CODES: [id number] - LUNG, NOS COPIES TO: Merary Hadley MD [address] [place] [address] Rl Chavez MD R2 [address] [place] [id number] [place] [address] [facility] [address] [place] [address] Luc Niño MD R2 [address] [place] [id number] [place] [address] [place] [address] @[employer] Roberto Sy MD R1 [address] [place] [address] Undefined Provider PROCEDURES: [id number] (07/24/22-1455) SPECIMEN TRACK (07/23/22-1245) CONTINUED ON NEXT PAGE RUN DATE: 07/24/22 [facility] - LAB PAGE 2 RUN TIME: 1456 Specimen Inquiry RUN USER: INTERFACE SPEC #: [id number] PATIENT: MONY JONES #[id number] (Continued) TISSUES: A. LUNG, NOS - RIGHT LUNG B. LUNG, NOS - LEFT LUNG FINAL DIAGNOSIS A. LUNG, RIGHT, EMBOLECTOMY: - Thrombus. B. LUNG, LEFT, EMBOLECTOMY: - Thrombus. GROSS DESCRIPTION A. Right lung. Received are several pieces of red-pink tissue fragments measuringaggregate of 3.2 x 0.5 x 0.4 cm, entirely submitted as A1. B. Left lung. It consists of two pieces of red-pink tissue measuring aggregate 2.6 x 0.6 x0.3, entirely submitted as B1. Technical tissue processing and slide preparation performed at [facility],[id number] , [place] [address] MICROSCOPIC DESCRIPTION A and B. Microscopic examination is performed and the findings are incorporated into thefinal diagnosis. Please see diagnosis for the findings. Signed SIGNATURE ON FILE Susan Haro 07/24/22 1457 END OF REPORT PTT [id number] 05:52:00* Test Item Value Reference Range Interpretation Comme nts PTT ACTIVATED (test code = APTT) 20.9 SECONDS 26.2-35.4 L BASIC METABOLIC [id number] 05:45:00* Test Item Value Reference Range Interpretation Comme nts SODIUM (test code = NA) 136 MMOL/L 137-145 L POTASSIUM (test code = K) 3.6 MMOL/L 3.5-5.1 N CHLORIDE (test code = CL) 102 MMOL/L 98-107 N CARBON DIOXIDE (test code = CO2) 24 MMOL/L 22-30 N ANION GAP (test code = GAP) 14 MMOL/L 14-24 N GLUCOSE (test code = GLU) 154 MG/DL 74-106 H BLOOD UREA NITROGEN (test code = BUN) 8 MG/DL 7-17 N GLOMERULAR FILTRATION RATE (test code = GFR) > 60 The Glomerular Filtration Rate is a calculated parameterbased on serum Creatinine, patient age and sex. GFR valuesless than 60 mL/min/1.73 square meters are indicative ofChronic Kidney Disease. Values less than 15 mL/min/1.73square meters indicate Kidney failure. The calculation forGFR is based on the CKD-EPI (202) calculation. This formulais race indifferent and is the recommended formula for GFRby the National Kidney Foundation for Adults.The GFR will not calculate if the sex is unknown or if thepatient's age is <18 years. CREATININE (test code = CREAT) 0.80 MG/DL 0.52-1.04 N CALCIUM (test code = CA) 8.2 MG/DL 8.4-10.2 L CBC W/AUTO [id number] 05:26:00* Test Item Value Reference Range Interpretation Comme nts WHITE BLOOD CELL (test code = WBC) 7.9 K/MM3 3.8-9.8 N RED BLOOD CELL (test code = RBC) 3.78 M/MM3 3.58-4.97 N HEMOGLOBIN (test code = HGB) 7.5 G/DL 11.2-14.9 L HEMATOCRIT (test code = HCT) 28.0 % 33.2-43.5 L MEAN CELL VOLUME (test code = MCV) 74 fL 80.7-99.1 L MEAN CELL HGB (test code = MCH) 19.8 pg 27.0-34.1 L MEAN CELL HGB CONCETRATION (test code = MCHC) 26.8 % 32.2-35.7 L RED CELL DISTRIBUTION WIDTH (test code = RDW) 19.0 % 12.1-15.2 H PLATELET COUNT (test code = PLT) 162 K/MM3 129-368 N MEAN PLATELET VOLUME (test c ode = MPV) 9.7 fl 7.4-10.4 N NEUTROPHIL % (test code = NT%) 74.8 % 43-75 N IMMATURE GRANULOCYTE % (test code = IG%) 1.3 % 0.0-2.0 N LYMPHOCYTE % (test code = LY%) 15.5 % 14-44 N MONOCYTE % (test code = MO%) 6.0 % 4-13 N EOSINOPHIL % (test code = EO%) 2.1 % 0-6 N BASOPHIL % (test code = BA%) 0.3 % 0-2 N NUCLEATED RBC % (test code = NRBC%) 0.5 % 0-1.0 N NEUTROPHIL # (test code = NT#) 5.94 K/mm3 2.0-7.6 N IMMATURE GRANULOCYTE # (test code = IG#) 0.10 x10 3/uL 0-0.03 H LYMPHOCYTE # (test code = LY#) 1.23 K/mm3 1.0-3.8 N MONOCYTE # (test code = MO#) 0.48 K/mm3 0.1-0.8 N EOSINOPHIL # (test code = EO#) 0.17 K/mm3 0.0-0.2 N BASOPHIL # (test code = BA#) 0.02 K/mm3 0.0-0.2 N NUCLEATED RBC # (test code = NRBC#) 0.04 K/mm3 0.0-0.1 N DIFFERENTIAL [id number] 05:26:00* Test Item Value Reference Range Interpretation Comme nts RBC MORPHOLOGY REQUIRED (marcos t code = RBCM) PLATELET ESTIMATE (test code = PLTEST) ADEQUATE PLATELET MORPHOLOGY (test co de = PLTMORPH) NORMAL PTT [id number] 21:33:00* Test Item Value Reference Range Interpretation Comme nts PTT ACTIVATED (test code = APTT) 35.8 SECONDS 26.2-35.4 H Comments to Coil 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: AVOID THE RIGHT ARMURINALYSIS [id number] 20:15:00* Test Item Value Reference Range Interpretation Comme nts UA COLOR (test code = COLU) YELLOW YELLOW UA APPEARANCE (test code = APPU) very cloudy CLEAR UA GLUCOSE DIPSTICK (test code = DGLUU) NORMAL MG/DL NORMAL UA BILIRUBIN DIPSTICK (test code = BILU) NEGATIVE MG/DL NEGATIVE UA KETONE DIPSTICK (test code = KETU) NEGATIVE MG/DL NEGATIVE UA SPECIFIC GRAVITY (test code = SGU) 1.025 1.003-1.030 N UA BLOOD DIPSTICK (test code = BECKI) 150 Josh/mm3 NEGATIVE A UA PH DIPSTICK (test code = EDGARDO) 5.0 5.0-9.0 N UA PROTEIN DIPSTICK (test code = PROU) 15 MG/DL NEGATIVE UA UROBILINIOGEN DIPSTICK (test code = URO) 8 MG/DL NORMAL A UA NITRITE DIPSTICK (test code = DRISS) NEGATIVE NEGATIVE UA LEUKOCYTE ESTERASE DIPSTICK (test code = LEUU) NEGATIVE /mm3 NEGATIVE UA CULTURE NEEDED? (test code = UACULT) NO, WBC <10 Criteria Culture Chk SOURCE OF URINE: CLEAN CATCHUA [id number] 20:15:00* Test Item Value Reference Range Interpretation Comme nts UA RBC (test code = RBCU) 0-3 RBC/HPF 0-3 UA WBC (test code = XWBCU) 0-3 WBC/HPF 0-5 UA EPITHELIAL CELLS (test co de = EPIU) RARE EPI/HPF FEW UA BACTERIA (test code = XBACU) MODERATE NONE A UA AMORPHOUS SEDIMENT (test code = AMORU) MODERATE NONE A SOURCE OF URINE: CLEAN CATCH- CT ABD PELVIS [id number] 20:14:00 [facility] 1985 Sex: F Patient Name: MONY JONES Unit No: [id number] EXAMS: CPT CODE: [id number] CT ABD PELVIS W/CONT 13718 CT chest History: hx pf precancerous uterine polyps Comparison: None at this time Location: [facility] CT scan of the chest was performed with intravenous contrast. One or more of the following radiation dose reduction techniques was used: automated exposure control, adjustment of mA and/or KV according to patient size, and/or utilization of iterative reconstruction technique. Quality of Exam: Acceptable. Thoracic aorta: The thoracic aorta is unremarkable. Other mediastinal structures: The other mediastinal structures are unremarkable. Pulmonary arteries: There are pulmonary emboli in the rightand left main pulmonary arteries, extending into the pulmonary artery branches bilaterally. Lymph nodes: No lymphadenopathy is identified. Pleura: There are no pleural effusions. Lung parenchyma: There are patchy opacities in the right upper lung. Bones/soft tissues: No concerning bony lesion is identified. No mass lesions are identified. EXAM: CT abdomen and pelvis COMPARISON: None at this time CT scan of the abdomen and pelvis was performed with intravenous contrast. One or more of the following radiation dose reduction techniques was used: automated exposure control, adjustment of mA and/or KV according to patient size, and/or utilization of iterative reconstruction technique. FINDINGS: Q uality of Exam: Acceptable. LIVER: The liver is unremarkable. BILIARY SYSTEM: There is no biliary dilatation. SPLEEN: The spleen is unremarkable. [facility] NAME: MONY JONES [id number] [address] PHYS: [id number] - Roberto Sy MD [address] [place] [address] : 1985 AGE: 36 SEX: F LOC: ZShantal346 A PHONE #: [phone] EXAM DATE: 07/23/2022 STATUS: ADM IN FAX #: [phone] RAD #:D/C DT PAGE 1 Signed Report (CONTINUED) Patient Name: MONY JONES Unit No: [id number] EXAMS:CPT CODE: [id number] CT ABD PELVIS W/CONT 11068 (Continued) PANCREAS: The pancreas is unremarkable.ADRENAL GLANDS: The adrenal glands are unremarkable. KIDNEYS: The kidneys appear unremarkable. There may be small stones in the renal collecting systems bilaterally. The kidneys are otherwise unremarkable. There is no hydronephrosis. AORTA: There is no abdominal aortic aneurysm or dissection. APPENDIX: The appendix appears unremarkable. GASTROINTESTINAL: There is no imaging evidence of large or small bowel obstruction. BONES/SOFT TISSUES: No concerning bony lesion identified. LYMPHATICS: No enlarged lymph nodes by CT criteria. PERITONEUM/OTHER: No free air and no free fluid are identified. AnIUD is identified in the uterus. The radiology call service personnel notified the patient's nurse of the findings at the time of the interpretation. IMPRESSION: There are bilateral pulmonary emboli.The location of some of the pulmonary emboli along the jaramillo of the pulmonary arteries suggests a long-standing process. There are patchy opacities in the right upper lung, consistent with pneumonia.Possible small bilateral nonobstructing nephrolithiasis, although this is difficult to determine with certainty, as no precontrast images were performed. at 2014 Reported and signed by: Darron Pride MD [facility] NAME: MONY JONES [address] PHYS: [id number] [place] [address] : 1985 AGE: 36 SEX: F LOC: Z.346 A PHONE #: [phone] EXAM DATE: 07/23/2022 STATUS: ADMIN FAX #: [phone] RAD #: D/C DT PAGE 2 Signed Report (CONTINUED) Patient Name: MONY JONES ELPIDIO Unit No: [id number] EXAMS: CPT CODE: [id number] CT ABD PELVIS W/CONT 65272 (Continued) CC: Oksana Angeles MD; Roberto Sy MD Technologist: Bill Fraga, RT(R); [facility] CTDI: DLP: Trnscrpt: 07/23/2022 (2013) [facility] NAME: MONY JONES [address] [id number] [address] PHYS: [id number] [place] [address] : 1985 AGE: 36 SEX: F LOC: Z.346 A PHONE #: [phone] EXAM DATE: 07/23/2022 STATUS: ADM IN FAX #: [phone] RAD #: D/C DT PAGE 3 SignedReport Patient Name: MONY JONES ELPIDIO Unit No: [id number] EXAMS: CPT CODE: [id number] CT ABD PELVIS W/CONT 92908 (Continued) Orig Print D/T: S: 07/23/2022 (2016) [facility] NAME: MONY JONES [id number] PHYS: [id number] [place] [address] : 1985 AGE: 36 SEX: F LOC: Z.346 A PHONE #: [phone] EXAM DATE: 07/23/2022 STATUS: ADM IN FAX #: [phone] RAD #: D/C DT PAGE 4 Signed Report- CT CHEST W/[id number] 20:14:00 [facility] 1985 Sex: F Patient Name: MONY JONES Unit No: [id number] EXAMS: CPT CODE: [id number] CT CHEST W/CONTRAST 37981 CT chest History: hx pf precancerous uterine polyps Comparison: None at this time Location: H45 CT scan of the chest was performed with intravenous contrast. One or more of the following radiationdose reduction techniques was used: automated exposure control, adjustment of mA and/or KV according to patient size, and/or utilization of iterative reconstruction technique. Quality of Exam: Acceptable. Thoracic aorta: The thoracic aorta is unremarkable. Other mediastinal structures: The other mediastinal structures are unremarkable. Pulmonary arteries: There are pulmonary emboli in the right and left main pulmonary arteries, extending into the pulmonary artery branches bilaterally. Lymph nodes: No lymphadenopathy is identified. Pleura: There are no pleural effusions. Lung parenchyma: Thereare patchy opacities in the right upper lung. Bones/soft tissues: No concerning bony lesion is identified. No mass lesions are identified. EXAM: CT abdomen and pelvis COMPARISON: None at this time CT scan of the abdomen and pelvis was performed with intravenous contrast. One or more of the following radiation dose reduction techniques was used: automated exposure control, adjustment of mA and/or KV according to patient size, and/or utilization of iterative reconstruction technique. FINDINGS: Q uality of Exam: Acceptable. LIVER: The liver is unremarkable. BILIARY SYSTEM: There is no biliary dilatation. SPLEEN: The spleen is unremarkable. [facility] NAME: MONY JONES [id number] [address] PHYS: [id number] - Roberto Sy MD [address] [place] [address] : 1985 AGE: 36 SEX: F LOC: Z.346 A PHONE #: [phone] EXAM DATE: 07/23/2022 STATUS: ADM IN FAX #: [phone] RAD #:D/C DT PAGE 1 Signed Report (CONTINUED) Patient Name: MONY JONES Unit No: [id number] EXAMS: CPT CODE: [id number] CT CHEST W/CONTRAST 09799 (Continued) PANCREAS: The pancreas is unremarkable. ADRENAL GLANDS: The adrenal glands are unremarkable. KIDNEYS: The kidneys appear unremarkable. There may be small stones in the renal collecting systems bilaterally. The kidneys are otherwise unremarkable. There is no hydronephrosis. AORTA: There is no abdominal aortic aneurysm or dissection. APPENDIX: The appendix appears unremarkable. GASTROINTESTINAL: There is no imaging evidence of large or small bowel obstruction. BONES/SOFT TISSUES: No concerning bony lesion identified. LYMPHATICS: No enlarged lymph nodes by CT criteria. PERITONEUM/OTHER: No free air and no free fluid are identified. An IUD is identified in the uterus. The radiology call service personnel notified the patient's nurseof the findings at the time of the interpretation. IMPRESSION: There are bilateral pulmonary emboli. The location of some of the pulmonary emboli along the jaramillo of the pulmonary arteries suggests a long-standing process. There are patchy opacities in the right upper lung, consistent with pneumonia. Possible small bilateral nonobstructing nephrolithiasis, although this is difficult to determine with certainty, as no precontrast images were performed. at 2014 Reported and signed by: Darron Pride MD [facility] NAME: MONY JONES [id number] [place] PHYS: [id number] - Roberto Sy MD [address] [place] [address] : 1985 AGE: 36 SEX: F LOC: Z.346 A PHONE #: [phone] EXAM DATE: 07/23/2022 STATUS: A DM IN FAX #: [phone] RAD #: D/C DT PAGE 2 Signed Report (CONTINUED) Patient Name: MONY JONES Unit No: [id number] EXAMS: CPT CODE: [id number] CT CHEST W/CONTRAST 44666 (Continued) CC: Oksana Angeles MD; Roberto Sy MD Technologist: Blil Fraga, RT(R); Jennifer CTDI: DLP: Trnscrpt: 07/23/2022 (2013) [facility] NAME: MONY JONES [id number] [address] PHYS: Roberto Bond MD [place] [id number] : 1985 AGE: 36 SEX: F LOC: Z.346 A PHONE#: [phone] EXAM DATE: 07/23/2022 STATUS: ADM IN FAX #: [phone] RAD #: D/C DT PAGE 3 Signed Report Patient Name: MONY JONES Unit No: [id number] EXAMS: CPT CODE: [id number] CT CHEST W/CONTRAST 31253 (Continued) Orig Print D/T: S: 07/23/2022 (2016) [facility] NAME: MONY JONES [id number] [place] PHYS: TRRoberto Flowers MD [address] [address] : 1985 AGE: 36 SEX: F LOC: Z.346 A PHONE #: [phone] EXAM DATE: 07/23/2022 STATUS: ADM IN FAX #: [phone] RAD #: D/C DT PAGE 4 Signed ReportPTT [id number] 14:28:00* Test Item Value Reference Range Interpretation Comme nts PTT ACTIVATED (test code = APTT) > 400.0 SECONDS 26.2-35.4 CALLED TO [employer] P& READBACK ON 07/23/22 AT 1427 BY Felipe Block [id number] 10:49:00* Test Item Value Reference Range Interpretation Comme nts ACT-ISTAT (test code = ACTI) 245 SEC 74-137 H [id number] 10:16:00* Test Item Value Reference Range Interpretation Comme nts ACT-ISTAT (test code = ACTI) 209 SEC 74-137 H [id number] 09:38:00* Test Item Value Reference Range Interpretation Comme nts ACT-ISTAT (test code = ACTI) 221 SEC 74-137 H BASIC METABOLIC [id number] 05:37:00* Test Item Value Reference Range Interpretation Comme nts SODIUM (test code = NA) 137 MMOL/L 137-145 N POTASSIUM (test code = K) 3.5 MMOL/L 3.5-5.1 N CHLORIDE (test code = CL) 104 MMOL/L 98-107 N CARBON DIOXIDE (test code = CO2) 25 MMOL/L 22-30 N ANION GAP (test code = GAP) 12 MMOL/L 14-24 L GLUCOSE (test code = GLU) 120 MG/DL 74-106 H BLOOD UREA NITROGEN (test code = BUN) 9 MG/DL 7-17 N GLOMERULAR FILTRATION RATE (test code = GFR) > 60 The Glomerular Filtration Rate is a calculated parameterbased on serum Creatinine, patient age and sex. GFR valuesless than 60 mL/min/1.73 square meters are indicative ofChronic Kidney Disease. Values less than 15 mL/min/1.73square meters indicate Kidney failure. The calculation forGFR is based on the CKD-EPI (2020) calculation. This formulais race indifferent and is the recommended formula for GFRby the National Kidney Foundation for Adults.The GFR will not calculate if the sex is unknown or if thepatient's age is <18 years. CREATININE (test code = CREAT) 0.80 MG/DL 0.52-1.04 N CALCIUM (test code = CA) 8.5 MG/DL 8.4-10.2 N CBC W/AUTO [id number] 05:28:00* Test Item Value Reference Range Interpretation Comme nts WHITE BLOOD CELL (test code = WBC) 10.3 K/MM3 3.8-9.8 H RED BLOOD CELL (test code = RBC) 4.00 M/MM3 3.58-4.97 N HEMOGLOBIN (test code = HGB) 8.0 G/DL 11.2-14.9 L HEMATOCRIT (test code = HCT) 29.7 % 33.2-43.5 L MEAN CELL VOLUME (test code = MCV) 74 fL 80.7-99.1 L MEAN CELL HGB (test code = MCH) 20.0 pg 27.0-34.1 L MEAN CELL HGB CONCETRATION (test code = MCHC) 26.9 % 32.2-35.7 L RED CELL DISTRIBUTION WIDTH (test code = RDW) 18.8 % 12.1-15.2 H PLATELET COUNT (test code = PLT) 183 K/MM3 129-368 N MEAN PLATELET VOLUME (test c ode = MPV) 10.1 fl 7.4-10.4 N NEUTROPHIL % (test code = NT%) 70.5 % 43-75 N IMMATURE GRANULOCYTE % (test code = IG%) 1.0 % 0.0-2.0 N LYMPHOCYTE % (test code = LY%) 20.4 % 14-44 N MONOCYTE % (test code = MO%) 5.9 % 4-13 N EOSINOPHIL % (test code = EO%) 1.9 % 0-6 N BASOPHIL % (test code = BA%) 0.3 % 0-2 N NUCLEATED RBC % (test code = NRBC%) 0.2 % 0-1.0 N NEUTROPHIL # (test code = NT#) 7.23 K/mm3 2.0-7.6 N IMMATURE GRANULOCYTE # (test code = IG#) 0.10 x10 3/uL 0-0.03 H LYMPHOCYTE # (test code = LY#) 2.09 K/mm3 1.0-3.8 N MONOCYTE # (test code = MO#) 0.61 K/mm3 0.1-0.8 N EOSINOPHIL # (test code = EO#) 0.20 K/mm3 0.0-0.2 N BASOPHIL # (test code = BA#) 0.03 K/mm3 0.0-0.2 N NUCLEATED RBC # (test code = NRBC#) 0.02 K/mm3 0.0-0.1 N DIFFERENTIAL [id number] 05:28:00* Test Item Value Reference Range Interpretation Comme nts RBC MORPHOLOGY REQUIRED (marcos t code = RBCM) PLATELET ESTIMATE (test code = PLTEST) ADEQUATE PLATELET MORPHOLOGY (test co de = PLTMORPH) NORMAL - XR CHEST [id number] 23:58:00 [facility] 1985 Sex: F Patient Name: MONY JONES Unit No: [id number] EXAMS: CPT CODE: [id number] XR CHEST 1V 12994 Chest Radiograph History: Outside facility cxr patchy upper lobes pt has PEs bilat Comparison: None at this time Location: H45 A single frontal view of the chest is submitted. The exam is limited due to alarge amount of overlying soft tissue. The heart is within normal limits in size. Pulmonary vasculature is unremarkable. The visualized lung pisano appear to be free of disease. The bones appear unremarkable. IMPRESSION: There is no radiographic evidence of acute cardiopulmonary disease. at 2358 Reported and signed by: Darron Florian MD CC: Luc Niño MD; Guru Quiroz MD Technologist: Rl [place] (RT) Transcrpt Date /Tm/Trnsp: 07/22/2022 (8688) t.SDR.PMT Orig Print D/T: S: 07/23/2022 (0002) [facility] NAME: MONY JONES ELPIDIO [address] [place] PHYS: [id number] - Luc Niño MD [address] [place] [address] : 1985 AGE:36 SEX: F LOC: DEVYN 9 PHONE #: [phone] EXAM DATE: 07/22/2022 STATUS:ADM IN FAX #: [phone] RADIOLOGY NO: PAGE 1 Signed ReportCBC W/AUTO [id number] 22:43:00* Test Item Value Reference Range Interpretation Comme nts WHITE BLOOD CELL (test code = WBC) 8.9 K/MM3 3.8-9.8 N RED BLOOD CELL (test code = RBC) 3.58 M/MM3 3.58-4.97 N HEMOGLOBIN (test code = HGB) 7.1 G/DL 11.2-14.9 L HEMATOCRIT (test code = HCT) 26.3 % 33.2-43.5 L MEAN CELL VOLUME (test code = MCV) 74 fL 80.7-99.1 L MEAN CELL HGB (test code = MCH) 19.8 pg 27.0-34.1 L MEAN CELL HGB CONCETRATION (test code = MCHC) 27.0 % 32.2-35.7 L RED CELL DISTRIBUTION WIDTH (test code = RDW) 18.6 % 12.1-15.2 H PLATELET COUNT (test code = PLT) 150 K/MM3 129-368 N MEAN PLATELET VOLUME (test c ode = MPV) 9.1 fl 7.4-10.4 N NEUTROPHIL % (test code = NT%) 67.7 % 43-75 N IMMATURE GRANULOCYTE % (test code = IG%) 0.8 % 0.0-2.0 N LYMPHOCYTE % (test code = LY%) 22.8 % 14-44 N MONOCYTE % (test code = MO%) 6.8 % 4-13 N EOSINOPHIL % (test code = EO%) 1.6 % 0-6 N BASOPHIL % (test code = BA%) 0.3 % 0-2 N NUCLEATED RBC % (test code = NRBC%) 0.4 % 0-1.0 N NEUTROPHIL # (test code = NT#) 6.05 K/mm3 2.0-7.6 N IMMATURE GRANULOCYTE # (test code = IG#) 0.07 x10 3/uL 0-0.03 H LYMPHOCYTE # (test code = LY#) 2.04 K/mm3 1.0-3.8 N MONOCYTE # (test code = MO#) 0.61 K/mm3 0.1-0.8 N EOSINOPHIL # (test code = EO#) 0.14 K/mm3 0.0-0.2 N BASOPHIL # (test code = BA#) 0.03 K/mm3 0.0-0.2 N NUCLEATED RBC # (test code = NRBC#) 0.04 K/mm3 0.0-0.1 N DIFFERENTIAL [id number] 22:43:00* Test Item Value Reference Range Interpretation Comme nts RBC MORPHOLOGY REQUIRED (marcos t code = RBCM) NORMAL PLATELET ESTIMATE (test code = PLTEST) ADEQUATE ADEQUATE PLATELET MORPHOLOGY (test co de = PLTMORPH) NORMAL NORMAL POIKILOCYTOSIS (test code = POIK) FEW NONE ANISOCYTOSIS (test code = ANISO) SLIGHT NONE MICROCYTOSIS (test code = MICR) FEW NONE OVALOCYTES (test code = OVAL) FEW NONE HCG SERUM [id number] 22:42:00* Test Item Value Reference Range Interpretation Comme nts HCG SERUM QUAL (test code = HCGQL) NEGATIVE NEGATIVE NT PRO-BRAIN NATRIURETIC [id number] 22:35:00* Test Item Value Reference Range Interpretation Comme nts NT PRO-BRAIN NATRIURETIC PEP TI (test code = PROBNP) 2480.0 pg/mL 0-125 H [id number] 22:35:00* Test Item Value Reference Range Interpretation Comme nts TROPONIN-I (test code = TROPI) < 0.012 NG/ML 0.012-0.033 L COMPREHENSIVE METABOLIC [id number] 22:35:00* Test Item Value Reference Range Interpretation Comme nts SODIUM (test code = NA) 138 MMOL/L 137-145 N POTASSIUM (test code = K) 3.5 MMOL/L 3.5-5.1 N CHLORIDE (test code = CL) 102 MMOL/L 98-107 N CARBON DIOXIDE (test code = CO2) 25 MMOL/L 22-30 N ANION GAP (test code = GAP) 15 MMOL/L 14-24 N GLUCOSE (test code = GLU) 114 MG/DL 74-106 H BLOOD UREA NITROGEN (test code = BUN) 9 MG/DL 7-17 N GLOMERULAR FILTRATION RATE (test code = GFR) > 60 The Glomerular Filtration Rate is a calculated parameterbased on serum Creatinine, patient age and sex. GFR valuesless than 60 mL/min/1.73 square meters are indicative ofChronic Kidney Disease. Values less than 15 mL/min/1.73square meters indicate Kidney failure. The calculation forGFR is based on the CKD-EPI (202) calculation. This formulais race indifferent and is the recommended formula for GFRby the National Kidney Foundation for Adults.The GFR will not calculate if the sex is unknown or if thepatient's age is <18 years. CREATININE (test code = CREAT) 0.90 MG/DL 0.52-1.04 N TOTAL PROTEIN (test code = PROT) 6.5 G/DL 6.3-8.2 N Ortho Clinical D iagnostic has made us aware of newinformation regarding the potential interference ofEltrombopag (a bone marrow stimulant used to treatthrombocytonmenia and aplastic anemia) with specific assayson the Vitros 5600 of which Total Protein is one of thoseassays performed in our lab.Interference testing performed at Ortho determined thatEltrombopag does interfere with Vitros Total Protein asfollowsEltrombopag Interference for Vitros Product Total Protein: Eltrombopag Max Observed Avg. BiasConcentration Concentration Concentration 2.5 mg/dl 6.0 g/dl +0.41 +0.34 3.5 mg/dl 6.0 g/dl +0.50 +0.45 5 mg/dl 6.0 g/dl +0.73 +0.65 2.5 mg/dl 8.0 g/dl +0.44 +0.41 3.5 mg/dl 8.0 g/dl +0.55 +0.52 5 mg/dl 8.0 g/dl +0.86 +0.77 ALBUMIN (test code = ALB) 3.7 G/DL 3.5-5.0 N CALCIUM (test code = CA) 8.5 MG/DL 8.4-10.2 N BILIRUBIN TOTAL (test code = BILT) 0.5 MG/DL 0.2-1.3 N Eltrombopag Inte rference for Vitros Product TBil, BuBc: Assay Eltrombopag Analyte/ Max Observed Avg. Bias Concentration Concentration Concentration TBil 7mg/dl TBil/ 1.2mg/dl +0.23mg.dl +0.20mg/dlBuBc 3.5mg/dl Bu/0.8mg/dl +0.25mg/dl +0.24mg/dlBuBc 7 mg/dl Bu/14.2mg/dl +0.38mg/dl +0.25mg/dlBuBc 5mg/dl Bc/0mg/dl +0.25mg/dl +0.15mg/dlBuBc 3.5mg/dl Bc/2.8mg/dl +0.25mg/dl +0.23mg/dl SGOT/AST (test code = AST) 16 UNITS/L 14-36 N SGPT/ALT (test code = ALT) 17 UNITS/L 0-34 N ALKALINE PHOSPHATASE (test code = ALKP) 78 UNITS/L 38-126 N PROTHROMBIN [id number] 22:16:00* Test Item Value Reference Range Interpretation Comme nts PROTHROMBIN TIME PATIENT (test code = PTP) 14.4 SECONDS 9.4-12.7 H INTERNATIONAL NORMAL RATIO (test code = INR) 1.3 0.86-1.14 H The INR is to be used only for monitoring oral anticoagulanttherap y. INDICATION INR VALUE -------1. Prophylaxis, deep venous thrombosis, including high risk surgery. 2.0 - 3.0 2. Prophylaxis, deep venous thrombosis, hip surgery, treatment for deep venous thrombosis or pulmonary prevention of systemic embolism in patients with valvular heart disease, atrial fibrillation, tissue heart valve, or acute myocardial infarction. 2.0 - 3.0 3. Mechanical prosthesis heart valves, recurrent systemic embolism. 3.0 - 4.5 PTT [id number] 22:16:00* Test Item Value Reference Range Interpretation [facility] PTT ACTIVATED (test code = APTT) 34.0 SECONDS 26.2-35.4 N [id number] 15:49:00* Test Item Value Reference Range Interpretation Comme [facility] SURGICAL (test code = SR) R UN DATE: 06/27/22 [facility] PAGE 1 RUN TIME: 1549 Specimen Inquiry RUN USER: INTERFACE P ATIENT: MONY JONES LOC: HortenciaU U #: [id number] AGE/SX: 36/F ROOM: RE06/25/22REG DR: Delta Barriga MD : 87 BED: DIS: STATUS: [facility] TLOC: SPEC #: [id number] RECD: 06/25/22 STATUS: DAVON MCGREGOR #: [id number] BHARGAVI: 06/25/22 [facility] DR: Delta Barriga MD ENTERED: 06/25/22 SP TYPE: SURGICAL OT DR: ORDERED: ANATOMIC SPEC, SPEC TRACK, [id number] PROCEDURES: [id number] (06/25/22) TISSUES: A. ENDOMETRIUM CURETTINGS / BIOPSY - ENDOMETRIAL CURETTINGS FINAL DIAGNOSIS A. ENDOMETRIUM, CURETTINGS: - Fragments of polyp with focal complex hyperplasia (without atypia) and squamous metaplasia. - Disordered proliferative endometrium with breakdown, suggestive of unopposed estrogen/ anovulation. - Benign endocervical and ectocervical tissue. - Negative for malignancy. GROSS DESCRIPTION Received in formalin labeled with Patient's name, , MRN and "endometrial curettings ";consists of multiple fragments of hutson soft and mucinous tissue that aggregate to 2.5 x 2.5x 0.3 cm, filtered and submitted in A 1-2.XZ 06/25/22 Technical component performed at [facility],[place] , [place] [address] Unless gross only, the diagnosis is based upon microscopic examination.Immunohistochemistr y: This test was developed and its performance characteristicsdetermined by this laboratory. It has not been approved nor does it need approval by Zach FDA. Appropriate positive and negative controls are reviewed and judged to beacceptable. This laboratory is certified under the Clinical Laboratory ImprovementAmendments (CLIA-88) as qualified to perform high complexity clinical laboratory testing. CLINICAL INFORMATION 06/25/22, OUT OF BODY 0754A, IN FORMALIN 0845A, ATYPICAL ENDOMETRIAL CELLS ON PAP SMEAR,ABNORMAL UTERINE BLEEDING. CONTINUED ON NEXT PAGE R UN DATE: 06/27/22 [facility] PAGE 2 RUN TIME: 1549 Specimen Inquiry RUN USER: INTERFACE S PEC #: [id number] PATIENT: MONY JONES ELPIDIO #[id number] (Continued) Signed SIGNATURE ON Kennedy Jacobo 06/27/22 1549 END OF REPORT HCG SERUM [id number] 13:06:00* Test Item Value Reference Range Interpretation Comme nts HCG SERUM QUAL (test code = HCGQL) NEGATIVE CBC W/AUTO [id number] 12:21:00* Test Item Value Reference Range Interpretation Comme nts WHITE BLOOD CELL (test code = WBC) 8.7 K/mm3 6.5-12.3 N RED BLOOD CELL (test code = RBC) 4.12 M/mm3 3.51-4.69 N HEMOGLOBIN (test code = HGB) 8.5 g/dL 10.1-13.8 L HEMATOCRIT (test code = HCT) 31.5 % 32.5-41.8 L MEAN CELL VOLUME (test code = MCV) 76.5 fL 84.6-96.6 L MEAN CELL HGB (test code = MCH) 20.6 pg 27.3-33.9 L MEAN CELL HGB CONCETRATION ( test code = MCHC) 27.0 gm/dL 32.0-34.2 L RED CELL DISTRIBUTION WIDTH (test code = RDW) 16.5 % 12.2-16.3 H PLATELET COUNT (test code = PLT) 232 K/mm3 134-363 N MEAN PLATELET VOLUME (test c ode = MPV) 9.4 fL 9.2-12.7 N NEUTROPHIL % (test code = NT%) 63.0 % 57.9-77.3 N LYMPHOCYTE % (test code = LY%) 24.2 % 14.5-29.7 N MONOCYTE % (test code = MO%) 6.4 % 3.6-10.2 N EOSINOPHIL % (test code = EO%) 5.1 % 0.0-3.0 H BASOPHIL % (test code = BA%) 0.6 % 0.1-0.9 N NEUTROPHIL # (test code = NT#) 5.5 K/mm3 LYMPHOCYTE # (test code = LY#) 2.1 K/mm3 MONOCYTE # (test code = MO#) 0.6 K/mm3 EOSINOPHIL # (test code = EO#) 0.44 K/mm3 BASOPHIL # (test code = BA#) 0.1 K/mm3 RBC MORPHOLOGY REQUIRED (marcos t code = RBCM) ABNORMAL NORMAL HYPO=1+ PLATELET MORPHOLOGY REQUIRED (test code = PLTMR) NORMAL NORMAL Notes Date/Time Note Provider Source 2022-08-09 16:49:00 [id number] +[id number]/8c [id number]+[id number]:49:88898 [id number] [address] PATIENT NAME: MONY JONES ADMIT DATE: 07/22/22ACCOUNT NO: [id number] ROOM NO: Z.437 AGE: 36 REPORT TYPE: 360 - QUERY RESPONSE DOCUMENT SEX: F ADMITTING PHYSICIAN:Troy Louis MD ATTENDING PHYSICIAN:Troy Louis MD Provider Query QUERY TEXT: Clarification Infectious Status POA 360MD Query related questions should be directed to: [facility] Coding Query Helpline Based on your clinical judgment, can you provide the known or suspected condition(s) that represent(s) the clinical indicators listed below and if the condition(s) are present on admission (POA)? The following definitions are provided based on industry literature and in collaboration with [facility] Clinical Services Group for your reference only:--Localized Infection - An infection that affects only one organ or body part (e.g., UTI, Pneumonia)--Bacteremia - Nonspecific laboratory finding of bacteria in the blood--Sepsis - A presumed or confirmed systemic response to infectious process with >2 clinical indicators such as: Temperature >38.3C or <36.0C, tachycardia, > 20 respiratory rate, WBC >12,000 or < 4,000 or > 10% bands--Severe Sepsis - Sepsis with additional clinical indicators such as Organ failure with any of the following: systolic BP < 90 or MAP < 65 or SBP decrease more 40 mm Hg from last recorded SBP considered normal for patient, Creatinine > 2.0, urine output < 0.5 ml/kg/hour for 2 hours, Bilirubin > 2 mg/dL, platelet count < 100,000, INR > 1.5, PTT > 60 sec, lactate > 2 mmol/L--Septic Shock - Severe Sepsis with Lactic acid > 4 mmol/L or persistent hypotension The patient's Clinical Indicators include:#PNA-Hospitalist Progress note on 07/24/2022, Acute hypoxic respiratory failure sec to bilateral PE- Hospitalist History and Physical on 07/23/2022, Temp 98.5 -ED Physician record on 07/22/2022, Pulse 80 -ED Physician record on 07/22/2022, Resp 22 -ED Physician record on 07/22/2022,Options provided:-- Sepsis, Please specify POA status (i.e., Y=Yes, N=No, W=Unable to clinically determine) and causative organism if known.-- Severe Sepsis, Please specify POA status (i.e., Y=Yes, N=No, W=Unable to clinically determine) and causative organism if known.-- Severe Sepsis with septic shock, Please specify POA status (i.e., Y=Yes, N=No, W=Unable to clinically determine) and causative organism if known.-- Localized infection, Please specify the infection and POA status (i.e., Y=Yes, N=No, W=Unable to clinically determine).-- Other - I will add my own diagnosis-- Dismiss - Not applicable / Not valid-- Dismiss - Clinically unable to determine / Unknown-- Assign to another provider QUERY RESPONSE: PNEUMONIA RULED OUT Query created by: Titus Serrano on 08/03/2022 3:50 AM at 1649 PATIENT NAME: MONY JONES noteZ.[id number] for patient orwpFOXMOKILUVSGND5644-38-61T80:50:45 [facility] 2022-07-31 11:18:00 [id number]+IHuQ++IG7stHURMU aJugFIqT/OnXRMhM34uVlIcD/[id number]:18:00 [facility] Discharge SummaryREPORT#:[id number] REPORT STATUS: SignedDATE:07/31/22 TIME: 1118 PATIENT: MONY JONES UNIT #: [id number]#: [id number] [facility] [birth year] AGE: 36 SEX: F ATTEND: Troy Louis AUTHOR: Roberto Sy MD R1 * ALL edits or amendments must be made on the electronic/computer document * Roberto Sy 07/31/22 1118:General InformationProblem List/A P: 1. Pulmonary embolism 2. Anemia 3. Incidental lung nodule, less than or equal to 3mm 4. 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 Lung nodule 7. Thyroid nodule Date of admission:Observation Start Date: Date of admission: 07/22/22 Discharge date: 07/31/22Discharge diagnosis:anemia, pul embolismHospital course:Ms. Jones is a 36F smoker with history of LOLITA, anemia from menorrhagia,and recent D/C for uterine polyps who was found to have BL PE with evidence of rightheart strain, now s/p mechanical thrombectomy, then had second hit PE requiring repeat thrombectomy from PA and IVC, as well as IVC filter placement. Pt was also found to have positive for HIT panel; hence Heparin was DC'ed. 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 In the hospital, pt was also found to be anemic, with Hgb around 7.0 for severalday. Pt is s/p 2 unit pRBC transfusion. Her iron panel was suggestive of iron deficiency anemia. Pt was started on ferrous gluconate 324 mg. As of now, Pt is stable, pt can ambulate around the hallway despite still needing O2 requirement via NC. Her latest Hgb is 7.9. Pt is deemed a appropriate candidate to be discharged with eliquis 5 mg BID, and ferrous gluconate. Pt is advised to followwith the educational technologist and surgeon that got involed in her case in the hospital Free Text DxA P NotesFree text DxA P notes:Ms. Jones is a 36F smoker with history of LOLITA, anemia from menorrhagia,and recent D/C for uterine polyps who was found to have BL PE with evidence of rightheart strain, now s/p mechanical thrombectomy, then had second hit PE requiring repeat thrombectomy from PA and IVC, as well as IVC filter placement #Positive for heparin induced antibody- Heparin has been DC'ed- Pt on Eliquis 10 mg PO BID, eliquis 5 mg PO BID- Pt is advised to not use heparin product in the future #Bilateral pulmonary embolism - Found via [facility] at [facility]. The CT also shows a lung nodule, and thyroid nodule.- Undergo PE thrombectomy via Dr. Dooley. She also recommends that pt needs to beon anticoagulation for at least 6 months - Echo cardiogram is notable for Dilated right ventricle with mildly reduced right ventricle systolic function. Continue medical mgmt. (Dr Hadley)- 07/23 1745: Ct chest showed bilateral pulmonary emboli. Dr Dooley is notified, she things that this is a new problem. Pt underwent another thrombectomy and IVCfiler - Heme/onc consulted (Dr Chu) #Right heart strain- 07/24 Echo was notable for mildly reduced systolic function of RV #Precancerous uterine polyps- Underwent D C before- Order CT chest, abdomen, pelvis with contrast to check for malignancy #Iron deficiency anemia - 07/30: Hgb = 7.8 (trending down from 8.3); Hct = 28; s/p 2 unit of pRBC transfusion. MCV = 79- Likely secondary to menorrhagia in the past. - Pt reports no bleeding. - Consider iron replacement therapy- Ferritin 9.5; serum iron = 10; TIBC = 388, Fesat = 3- Ferrous gluconate 324 mg PO daily #Lung nodule- Measured 3mm in left lobe of the lung. - Not appreciated on study done 07/23/2022- F/U with pulmonary outpatient for imaging, and further management. #Smoking- Nicotine patch. Encouraged smoking cessation.- Patient was smoking 1/2 a pack a day before being admitted #Thyroid nodule- Measured 2.5 cm - Not appreciated on study done 07/23/2022- Pending TSH, T4. - F/U outpatient. #LOLITA- Sleep study as outpatient. 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 oxygen weaned to RA Med Rec Med RecDischarge meds:Continue taking these medications:buPROPion HCL XL (WELLBUTRIN XL) 300 MG TAB.SR.24H 300 MILLIGRAM ORAL DAILY. Start taking the following new medications:APIXABAN (ELIQUIS) 5 MG TAB 5 MILLIGRAM ORAL TWICE DAILY. Qty = 60 No Refills FERROUS GLUCONATE (FERROUS GLUCONATE) 324 MG (37.5 MG IRON) TAB 324 MILLIGRAM ORAL DAILY. Qty = 30 No Refills ObjectiveVS/I OLast Documented: Result Date Time Pulse Ox 91 12/07 0842 FiO2 28 07/31 842 O2 Delivery Nasal cannula 07/31 842 O2 Flow Rate 2 07/31 842 B/P 109/64 07/31 831 B/P Mean 79.1 07/31 831 Temp 36.4 07/31 831 Pulse 87 07/31 831 Resp 16 07/31 831 24 hour I O ending at 0700: 07/31 0700 07/30 1900 Intake Total 500 Output Total Balance 500 Intake, Oral 500 Number Voids 2 Head/Eyes: atraumatic, normocephalicNeck: full range of motionCardiovascular: regular rate rhythmRespiratory: on oxygen, aerating well, no distressAbdomen: obese, non-tender, softExtremities: moves allNeuro/JAVA FLEX DEVELOPER: alert, oriented X 3, normal speechSkin: dryPsychiatry: normal affect, normal mood Discharge Instructions PCPPCP follow-up:PCP: Undefined Provider Discharge to: Home/Self CareAdditional Discharge Routines: PCP Follow-Up, Complex Case Manager Follow-UpDiet: Resume Home Diet/FeedsPrescriptions: e-prescribeRx drug database reviewed: yesDischarge management: greater than 30 minsTime spent: Time spent on patient care (minutes): 40 Follow-up AppointmentsPCP follow-up: PCP: Undefined Provider PCP follow up timeframe: In 1-2 weeksConsulting provider 1: Provider 1: Samuel Tucker MD Specialty: Critical Care Medicine Ssymysoyoh provider 2: Provider 2: Leanna Dooley MD Specialty: Vascular Surgery Quality: Discharge Current MedicationsCurrent medication review:I attest that the foregoing medication list in the medical record is true, accurate, and complete to the best of my knowledge. Troy Louis 07/31/22 1207:Attestations Teaching Physician AttestationF/U visit w/ resident:I saw the patient with the resident Roberto Sy MD R1 (DOS: 07/31/22) agree with the resident's findings and plan. at 1148 at 1208 RPT #:[id number] OF REPORTDSDischarge inchprk5665-94-15X15:18:00Z.[id number] ailable for patient bsxiOAGNFJUVEJMJJQ4984-66-55B83:49:04 [facility] 2022-07-30 15:23:00 [id number] jiEB+pJX7Tu6UWMny5BSCMH19E/nQ JotqAZlzEjl2qex8wAwe2iU06Tl5295-45-81P60:23:00 [facility] ([facility])Pulmonology Progress NoteREPORT#:[id number] REPORT STATUS: SignedDATE:07/30/22 TIME: 1523 PATIENT: MONY JONES UNIT #: [id number]#: [id number] [facility] [birth year] AGE: 36 SEX: F ATTEND: Troy Louis MDADM AUTHOR: Samuel Tucker MD * ALL edits or amendments must be made on the electronic/computer document * SubjectiveHPI:Patient was seen and examined bedside, continues to be nasal cannula. Still have shortness of breath with activity. Objective GeneralVS/I O:Last Documented: Result Date Time Pulse Ox 96 07/30 1218 B/P 120/75 07/30 1218 B/P Mean 89.8 07/30 1218 Temp 36.4 07/30 1218 Pulse 81 07/30 1218 Resp 12 07/30 1218 O2 Delivery Nasal cannula 07/30 0436 FiO2 28 07/30 0431 O2 Flow Rate 2 07/30 0431 24 hour I O ending at 0700: 07/30 0700 07/29 1900 Intake Total 400 1090 Output Total Balance 400 1090 Intake, IV 500 Intake, Oral 400 240 Intake, 350 Packed Cells Number Voids 2 PATIENT WEIGHT: Weight (lb): Weight (oz): Weight (kg): 155.000 Medications:Active Meds + DC'd Last 24 HrsFerrous Gluconate (Ferrous Gluconate) 324 MG DAILY PO Apixaban (Eliquis) 10 MG BID PO (CKD) Bupropion HCl (WELLBUTRIN) 100 MG TID PO Melatonin (MELATONIN) 3 MG BEDTIME PRN PO Nicotine (NICODERM) 14 MG DAILY PRN PRN TRANSDERM Polyethylene Glycol (MIRALAX) 17 GM DAILY PRN PRN PO Physical ExamComments:Middle-age female lying in bed not in acute distressPupil equal react lightNeck suppleChest clearHeart S1-X6Eudrcew obese soft, bowel sound presentExtremities no edemaCNS intact ResultsFindings/Data:Laboratory Tests 07/30/22 131:[Embedded Image Not Available] 07/29/222001:[Embedded Image Not Available]Laboratory Tests 07/30 Hematology WBC (3.8 - 9.8 K/MM3) 6.8 RBC (3.58 - 4.97 M/MM3) 3.54 L Hgb (11.2 - 14.9 G/DL) 7.8 L 8.3 L Hct (33.2 - 43.5 %) 28.0 L MCV (80.7 - 99.1 fL) 79 L MCH (27.0 - 34.1 pg) 22.0 L MCHC (32.2 - 35.7 %) 27.9 L RDW (12.1 - 15.2 %) 19.9 H Plt Count (129 - 368 K/MM3) 254 MPV (7.4 - 10.4 fl) 9.2 Neut % (Auto) (43 - 75 %) 63.2 Lymph % (Auto) (14 - 44 %) 22.6 [place] % (Auto) (4 - 13 %) 9.4 Eos % (Auto) (0 - 6 %) 3.5 Baso % (Auto) (0 - 2 %) 0.6 Neut # (Auto) (2.0 - 7.6 K/mm3) 4.29 Lymph # (Auto) (1.0 - 3.8 K/mm3) 1.54 [place] # (Auto) (0.1 - 0.8 K/mm3) 0.64 Eos # (Auto) (0.0 - 0.2 K/mm3) 0.24 H Baso # (Auto) (0.0 - 0.2 K/mm3) 0.04 Immature Gran % (0.0 - 2.0 %) 0.7 Nucleated RBC % (0 - 1.0 %) 0.6 Nucleated RBCs # (Man) (0.0 - 0.1 K/mm3) 0.04 Diagnosis, Assessment PlanFree Text A P:Acute hypoxemic respiratory failureAcute pulmonary embolism/post mechanical thrombectomy/embolectomyDVT status post thrombectomy and IVC filter placementPossible HITObesityOSAChronic anemia Patient presented with shortness of breath, started after she had D C with IUD placement, found to have bilateral pulmonary embolism. 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 Continue oxygen to keep saturation above 90%Continue anticoagulation/Eliquis patient will need at least 6 months to 1 year, hematology on boardIncentive spirometryBronchodilator as neededPatient will need to follow-up for her sleep study as an outpatient. Case was discussed at bedside with the patient and nursing staff. Patient plan to go home with home oxygen. We will follow-up as an outpatient Thank you for involving us in care of this pleasant patient, we really appreciate your consult. at 1539 RPT #:[id number] OF REPORTPRProgress [id number]:23:00Z.[id number] able for patient oieuDIVOFBZBIDCXEO9185-80-49L00:40:05 [facility] 2022-07-30 14:29:00 [id number] 7BAAnNJwJdnyoaLD91Mnc0SNJVlSm Kd/S4HXiWYKmY48cWvooXSJjCIu5966-38-31L76:29:00 [facility] ([facility])Hospitalist Progress NoteREPORT#:[id number] REPORT STATUS: SignedDATE:07/30/22 TIME: 1429 PATIENT: MONY JONES UNIT #: [id number]#: [id number] [facility] AGE: 36 SEX: F ATTEND: Troy Louis MDADM AUTHOR: Troy Louis MD * ALL edits or amendments must be made on the electronic/computer document * SubjectiveChief complaint:SOB Transferred here for bilateral PEHPI:VSS within the last 24 hrs. walk around the hallway 3 times yesterday. Pt is on 2L NC. Pt does not notice any bleeding. She is transferred from [facility] to regular floor. Review of Systems Free Text ROS NotesFree Text ROS Notes:N/A Objective GeneralMedications:Active Meds + DC'd Last 24 HrsFerrous Gluconate (Ferrous Gluconate) 324 MG DAILY PO Apixaban (Eliquis) 10 MG BID PO (CKD) Bupropion HCl (WELLBUTRIN) 100 MG TID PO Melatonin (MELATONIN) 3 MG BEDTIME PRN PO Nicotine (NICODERM) 14 MG DAILY PRN PRN TRANSDERM Polyethylene Glycol (MIRALAX) 17 GM DAILY PRN PRN PO Dietitian nutrition assessmentThe data set between the solid lines has been imported from the dietitian's assessment. BMI Calculated: 53.5Nutrition related diagnosis: Nutrition diagnosis details: Nutrition problem: Nutrition etiology: Nutrition signs and symptoms: Nutrition prescription: Dietitian name: Assessment completed: Physical ExamHead/Eyes: atraumatic, normocephalicNeck: full range of motionCardiovascular: regular rate rhythmRespiratory: on oxygen, aerating well, no distressAbdomen: obese, non-tender, softExtremities: moves allNeuro/JAVA FLEX DEVELOPER: alert, oriented X 3, normal speechSkin: dryPsychiatry: normal affect, normal mood Diagnosis, Assessment Plan Free Text DxA P NotesFree text DxA P notes:Ms. 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 The CT also shows a lung nodule, and thyroid nodule.- Undergo PE thrombectomy via Dr. Dooley. She also recommends that pt needs to beon anticoagulation for at least 6 months - NPO. Oxygen per protocol.- Echo cardiogram is notable for Dilated right ventricle with mildly reduced right ventricle systolic function. Continue medical mgmt. (Dr Hadley)- 07/23 1745: Ct chest showed bilateral pulmonary emboli. The location of some of thepulmonary emboli along the jaramillo of the pulmonary arteries suggests along-standing process. Dr Dooley is notified, she things that this is a new problem. She plans to do another thrombectomy and IVC filer - Heme/onc consulted (Dr Chu) #Right heart strain- f/u TTE, consider RHC, CT C/A/P with contrast to exclude malignancy given pre-cancerous uterine polyps (per cardiology, Dr Merary Hadley) #Precancerous uterine polyps- Underwent D C before- Order CT chest, abdomen, pelvis with contrast to check for malignancy #Anemia Chronic - 07/29: Hgb = 7.0 (stable); Hct = 25.5 (Stable); s/p 1 unit of pRBC transfusion. - Likely secondary to menorrhagia in the past. - Type and screen. - Pt reports no bleeding. - Pending FOBT.- Consider iron replacement therapy- Serum iron, FE w/total iron binding capacity, ferritin pending #PNA- 07/23 CT Chest: patchy opacities in the right upper lung, consistent withpneumonia.- No fever within the last 24 hrs. - BP normal (121-151/58-71) #Lung nodule- Measured 3mm in left lobe of the lung. - Not appreciated on study done 07/23/2022- F/U with pulmonary outpatient for imaging, and further management. #Smoking- Nicotine patch. Encouraged smoking cessation. #Thyroid nodule- Measured 2.5 cm - Not appreciated on study done 07/23/2022- Pending TSH, T4. - F/U outatient. DVT: Apixaban (Eliquis) 10 mg PO BIDDiet: RegularCode: full Dispo: Home pending clinical stabilization i.e. oxygen weaned to RA 07/30-Patient was smoking 1/2 a pack a day before being admitted and intends to stop after discharge-Does not take alcohol or illiciet drugs-Minimal swelling observed bilaterally on lower feet-Patient was able to walk on 07/29 with oxygen Quality: Gen Med Crit Care VTE ProphylaxisVTE prophylaxis initiated: yes (Bilateral PE) Current MedicationsCurrent medication review:I attest that the foregoing medication list in the medical record is true, accurate, and complete to the best of my knowledge. at 1641 RPT #:[id number] OF REPORTPRProgress zxku8587-10-62O68:29:00Z.[id number] able for patient dpsyTVAPVFHGPYAPDL7479-75-11H65:41:46 [facility] 2022-07-30 11:23:00 [id number]+ kcUUf+QTml7D9hijARNdeOo5G9PsZ Vucx/7XPQr+FZ4S88qBciyhNWbO2813-68-58I24:23:00 [facility] ([facility])Vascular Surgery Progress NoteREPORT#:[id number] REPORT STATUS: SignedDATE:07/30/22 TIME: 1123 PATIENT: MONY JONES UNIT #: [id number]#: [id number] ROOM/BED: [facility]-ADOB: [birth year] AGE: 36 SEX: F ATTEND: Troy Louis [facility] AUTHOR: Leanna Dooley MD * ALL edits or amendments must be made on the electronic/computer document * SubjectiveChief complaint:shortness of breath improved. Ambulating. now decreased to 2 L /min O2 via NC. Objective GeneralVS/I O:Last Documented: Result Date Time Pulse Ox 95 07/30 827 B/P 121/71 07/30 827 B/P Mean 87.8 07/30 827 Temp 97.9 07/30 827 Pulse 79 07/30 827 Resp 20 07/30 827 O2 Delivery Nasal cannula 07/30 436 FiO2 28 07/30 431 O2 Flow Rate 2 07/30 431 24 hour I O ending at 0700: 07/30 1900 Intake Total 400 1090 Output Total Balance 400 1090 Intake, IV 500 Intake, Oral 400 240 Intake, 350 Packed Cells Number Voids 2 PATIENT WEIGHT: Weight (lb): Weight (oz): Weight (kg): 155.000 HEENT: mucosal membranes moistNeck: full range of motion, supple/no meningismusCardiovascular: BP/pulses equal bilat.Respiratory: symmetric expansionAbdomen: softExtremities: dry, moves allPulse assess: Vascular pulse assess: Palpated: R radial, L radial. Neuro/JAVA FLEX DEVELOPER: alert, oriented X 3, no motor deficits, no sensory deficitsSkin: dry Diagnosis, Assessment PlanFree Text A P:36 year old female with bilateral submassive pulmonary embolism, provoked in thesetting of recent D and C with IUD placement, s/p PE thrombectomymalignancy work up with CT chest abdomen pelvis revealed second hit ileocaval DVT not seen on cavagram or pulmonary angiogram with new bilateral saddle PE- s/p b/l ileocaval thrombectomy with repeat PE thrombectomy and IVC filter placementAppreciate heme/onc work up for possible HIT (Ab positive) and hypercoagulable work up; on eliquiscontinue anticoagulation for at least 6 monthswill need compression stockings- can be arranged outpatient at 1124 RPT #:[id number] OF REPORTPRProgress uhxj9949-85-66K66:23:00Z.[id number] able for patient lqvoJUMFBHOGRIVTTA0365-63-89R28:25:01 [facility] 2022-07-29 17:47:00 [id number] dbkyesvnFnjCbokoJjbCIkhNFd9LQ cryU8/XakONf8ZiKWtPjQtkpmFk2923-75-08T46:47:00 [facility] ([facility])Pulmonary Consultation NoteREPORT#:[id number] REPORT STATUS: SignedDATE:07/29/22 TIME: 1746 PATIENT: MONY JONES UNIT #: [id number]#: [id number] ROOM/BED: [facility]-ADOB: [birth year] AGE: 36 SEX: F ATTEND: Troy Louis [facility] AUTHOR: Samuel Tucker MD * ALL edits or amendments must be made on the electronic/computer document * History of Present Illness HPIReason for consult:Acute pulmonary embolismPCP:PCP: Undefined Provider HPI:36 year old female smoker with history of LOLITA, anemia from menhorragia, underwent D C for uterine polyps and menorrhagia with IUD placement on June 25, admitted to the hospital on July 22 with bilateral pulmonary embolism. Patient been having worsening shortness of breath started July 07. On admission patient underwent bilateral embolectomy on July 23. CT angiogram repeated showed saddle bilateral pulmonary PE with ileal caval thrombus, underwent bilateral pulmonary embolectomy, bilateral ileal and inferior vena caval thrombectomy on July 25. Patient has been on anticoagulation since then. Patient thought to have possible HIT, seen by hematology, currently on Eliquis. Patient is still on oxygen. Still have shortness of breath with activity. No chest pain, coughing, wheezing. Patient diagnosed recently with LOLITA, she was awaiting her CPAP titration study. No previous history of thromboembolic disease. No family history of thromboembolic disease. History - Adult longitudinalPast medical history:Reports: Anemia. Additional medical history:Sleep Apnea, Prediabetes, and Anemia due to MenorrhagiaPast surgical history:Reports: , Splenectomy. 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 Mom Cervical CancerAlcohol use: Denies EtOH useDrug use: Denies recreational drugsSmoking status for patients 13 years old or older: Current some day smokerDate last smoked: 07/22/22Packs per day: 1Years smoked: 20Medications:Home Medications: Medication Dose/Rte/Freq Days Qty Entered Last Max Daily Dose Reviewed buPROPion HCL XL 300 MG PO DAILY 06/24/22 07/28/22 (WELLBUTRIN XL) 1127 0502 Strength: 300 MG TAB.SR.24H Current Hospital Medications:Autonomic Drugs Sig/Juanita Start time Last Medication Dose Route Stop Time Status Admin Nicotine 14 MG DAILY PRN PRN 07/22 2245 AC (NICODERM) TRANSDERM 08/21 224 Blood Formation,Coagulation Sig/Juanita Start time Last Medication Dose Route Stop Time Status Admin Apixaban 10 MG BID 07/26 0900 CKD 07/29 (Eliquis) PO 07/31 2101 2202 Central Nervous System Agents Sig/Juanita Start time Last Medication Dose Route Stop Time Status Admin Bupropion HCl 100 MG TID 07/24 0500 AC 07/29 (WELLBUTRIN) PO 08/23 0501 2202 Gastrointestinal Drugs Sig/Juanita Start time Last Medication Dose Route Stop Time Status Admin Polyethylene Glycol 17 GM DAILY PRN PRN 07/22 2245 AC (MIRALAX) PO 08/21 2246 Miscellaneous Therapeutic Agen Sig/Juanita Start time Last Medication Dose Route Stop Time Status Admin Melatonin 3 MG BEDTIME PRN 07/22 2245 AC (MELATONIN) PO 08/21 224 Allergies:Coded Allergies:heparin (Heparin induced antibody + 07/27/22) Review of SystemsAdditional notes:10 point system reviewed were negative except mentioned HPI Objective Physical ExamVitals:Last Documented: Result Date Time Pulse Ox 94 07/29 165 B/P 149/78 07/29 165 B/P Mean 101.9 07/29 1658 Temp 36.7 07/29 1658 Pulse 86 07/29 165 Resp 14 07/29 165 O2 Delivery Nasal cannula 07/29 932 O2 Flow Rate 2 07/29 932 FiO2 36 07/28 2000 Comments:Middle-age female lying in bed not in acute distressPupil equal react lightNeck suppleChest clearHeart S1-F8Azsnxpu obese soft, bowel sound presentExtremities no edemaCNS intact ResultsFindings/Data:Laboratory Tests 07/29/22 0431:[Embedded Image Not Available]Laboratory Tests 07/29 07/29 1111 1111 Chemistry Iron (37 - 170 MCG/DL) 10 L TIBC (265 - 497 MCG/DL) 388 % Saturation (12 - 57 %) 3 L Ferritin (6.24 - 137 NG/ML) 9.5 Laboratory Tests 07/29 0431 Hematology WBC (3.8 - 9.8 K/MM3) 6.9 RBC (3.58 - 4.97 M/MM3) 3.30 L Hgb (11.2 - 14.9 G/DL) 7.0 L Hct (33.2 - 43.5 %) 25.5 L MCV (80.7 - 99.1 fL) 77 L MCH (27.0 - 34.1 pg) 21.2 L MCHC (32.2 - 35.7 %) 27.5 L RDW (12.1 - 15.2 %) 19.8 H Plt Count (129 - 368 K/MM3) 215 MPV (7.4 - 10.4 fl) 9.0 Neut % (Auto) (43 - 75 %) 67.1 Lymph % (Auto) (14 - 44 %) 21.0 [place] % (Auto) (4 - 13 %) 7.4 Eos % (Auto) (0 - 6 %) 2.9 Baso % (Auto) (0 - 2 %) 0.4 Neut # (Auto) (2.0 - 7.6 K/mm3) 4.64 Lymph # (Auto) (1.0 - 3.8 K/mm3) 1.45 [place] # (Auto) (0.1 - 0.8 K/mm3) 0.51 Eos # (Auto) (0.0 - 0.2 K/mm3) 0.20 Baso # (Auto) (0.0 - 0.2 K/mm3) 0.03 Immature Gran % (0.0 - 2.0 %) 1.2 Nucleated RBC % (0 - 1.0 %) 0.7 Nucleated RBCs # (Man) (0.0 - 0.1 K/mm3) 0.05 Diagnosis, Assessment Plan Free Text DxA P NotesFree Text DxA P Notes:Acute hypoxemic respiratory failureAcute pulmonary embolism/post mechanical thrombectomy/embolectomyDVT status post thrombectomy and IVC filter placementPossible HITObesityOSAChronic anemia Patient presented with shortness of breath, started after she had D C with IUD placement, found to have bilateral pulmonary embolism. 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 At this time patient on Eliquis, her test showed possible HIT, hematology on board. At this time we will continue with anticoagulation. Patient will need at least 6 months of anticoagulation, she will need hypercoagulable work-up. We will continue with oxygen, will wean downto keep saturation of 92%. Continue incentive spirometry. Out of bed to chair,continue to work with PT and OT. Patient does have sleep apnea, she will need her CPAP/BiPAP titration study as an outpatient. Monitor H H, management per hematology. Hopefully with the patient continued to improve may be able to go home within the next 2 days. Diagnosis and management plan discussed in detail with the patient and nursing staff. Thank you for involving us in care of this pleasant patient, we really appreciate your consult. at 2323 RPT #:[id number] OF REPORTJKJlbkblxihunf1124-43-41Z59:47:00Z.PDOC2 [id number] for patient hbaqZTPGZTIUKTKZLS5051-52-64B10:23:52 [facility] 2022-07-29 06:13:00 [id number]+cmizkS iAwTelx9kcozdP7v9ZMWD4ALqtL7/ ddSkNh3MB81Ma0Jbh/5v+12XLha5735-00-85V37:13:00 [facility] ([facility])Hospitalist Progress NoteREPORT#:[id number] REPORT STATUS: SignedDATE:07/29/22 TIME: 06 PATIENT: MONY JONES UNIT #: [id number]#: [id number] ROOM/BED: [facility]-ADOB: [birth year] AGE: 36 SEX: F ATTEND: Troy Louis MDA AUTHOR: Roberto Sy MD R1 * ALL edits or amendments must be made on the electronic/computer document * Roberto Sy 07/29/22 0613:SubjectiveChief complaint:SOB Transferred here for bilateral PEHPI:VSS within the last 24 hrs. walk around the hallway 3 times yesterday. Pt is on 2L NC. Pt does not notice any bleeding. She is transferred from [facility] to regular floor. Review of SystemsConstitutional:Denies: chills, fatigue, fever. Skin:Denies: abrasion, bruising. Allergy/Immun:Denies: rhinorrhea, sneezing. Eyes:Denies: redness, discharge. ENT:Denies: throat pain. Respiratory:Reports: SOB. Denies: wheezing. Cardiovascular:Denies: chest pain. GI:Denies: abdominal pain. :Denies: dysuria, flank pain. Neuro:Denies: headache. Psych:Denies: anxiety, depression. Objective GeneralVS/I O:Vital Signs: Date Time Temp Pulse Resp B/P B/P Pulse O2 O2 Flow FiO2 Mean Ox Delivery Rate 07/29 1130 36.8 79 16 140/79 99.1 95 07/29 0956 36.5 82 16 138/79 98.7 96 07/29 0932 Nasal 2 cannula 07/29 0721 36.4 07/29 0710 91 Nasal 2 cannula 07/29 0440 36.5 21 07/29 0412 80 23 129/60 92 07/29 0300 82 07/29 0022 80 21 93 07/29 0000 79 07/29 0000 24 136/63 95 07/28 2309 36.9 21 07/28 2000 Nasal 2 36 cannula 07/28 1954 99 Nasal 4 36 cannula 07/28 1914 36.9 21 07/28 1800 87 146/76 104 96 07/28 1730 86 131/63 91 97 07/28 1700 86 152/65 93 97 07/28 1630 82 144/68 98 96 07/28 1611 87 95 07/28 1600 36.8 07/28 1600 Nasal 2 cannula 07/28 1559 93 89 07/28 1531 87 144/99 118 97 07/28 1500 83 140/89 109 97 07/28 1430 87 32 127/77 96 97 07/28 1400 84 32 136/78 100 96 07/28 1330 88 36 128/72 94 95 24 hour I O ending at 0700: 07/29 0700 07/28 1900 Intake Total 300 155 Output Total Balance 300 155 Intake, Oral 300 77 Intake, Oral 78 Supplement Number 1 2 Bowel Movements Number Voids 2 3 PATIENT WEIGHT: Weight (lb): Weight (oz): Weight (kg): 155.000 Physical ExamHead/Eyes: atraumatic, normocephalicNeck: full range of motionCardiovascular: regular rate rhythmRespiratory: on oxygen, aerating well, no distressAbdomen: obese, non-tender, softExtremities: moves allNeuro/JAVA FLEX DEVELOPER: alert, oriented X 3, normal speechSkin: dryPsychiatry: normal affect, normal mood ResultsFindings/Data:Laboratory Tests 07/29 07/29 1111 1111 Chemistry Iron (37 - 170 MCG/DL) 10 L TIBC (265 - 497 MCG/DL) 388 % Saturation (12 - 57 %) 3 L Ferritin (6.24 - 137 NG/ML) 9.5 Laboratory Tests 07/29 0431 Hematology WBC (3.8 - 9.8 K/MM3) 6.9 RBC (3.58 - 4.97 M/MM3) 3.30 L Hgb (11.2 - 14.9 G/DL) 7.0 L Hct (33.2 - 43.5 %) 25.5 L MCV (80.7 - 99.1 fL) 77 L MCH (27.0 - 34.1 pg) 21.2 L MCHC (32.2 - 35.7 %) 27.5 L RDW (12.1 - 15.2 %) 19.8 H Plt Count (129 - 368 K/MM3) 215 MPV (7.4 - 10.4 fl) 9.0 Neut % (Auto) (43 - 75 %) 67.1 Lymph % (Auto) (14 - 44 %) 21.0 [place] % (Auto) (4 - 13 %) 7.4 Eos % (Auto) (0 - 6 %) 2.9 Baso % (Auto) (0 - 2 %) 0.4 Neut # (Auto) (2.0 - 7.6 K/mm3) 4.64 Lymph # (Auto) (1.0 - 3.8 K/mm3) 1.45 [place] # (Auto) (0.1 - 0.8 K/mm3) 0.51 Eos # (Auto) (0.0 - 0.2 K/mm3) 0.20 Baso # (Auto) (0.0 - 0.2 K/mm3) 0.03 Immature Gran % (0.0 - 2.0 %) 1.2 Nucleated RBC % (0 - 1.0 %) 0.7 Nucleated RBCs # (Man) (0.0 - 0.1 K/mm3) 0.05 Diagnosis, Assessment Plan Free Text DxA P NotesFree text DxA P notes:Ms. 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 The CT also shows a lung nodule, and thyroid nodule.- Undergo PE thrombectomy via Dr. Dooley. She also recommends that pt needs to beon anticoagulation for at least 6 months - NPO. Oxygen per protocol.- Echo cardiogram is notable for Dilated right ventricle with mildly reduced right ventricle systolic function. Continue medical mgmt. (Dr Hadley)- 07/23 1745: Ct chest showed bilateral pulmonary emboli. The location of some of thepulmonary emboli along the jaramillo of the pulmonary arteries suggests along-standing process. Dr Dooley is notified, she things that this is a new problem. She plans to do another thrombectomy and IVC filer - Heme/onc consulted (Dr Chu) #Right heart strain- f/u TTE, consider RHC, CT C/A/P with contrast to exclude malignancy given pre-cancerous uterine polyps (per cardiology, Dr Merary Hadley) #Precancerous uterine polyps- Underwent D C before- Order CT chest, abdomen, pelvis with contrast to check for malignancy #Anemia Chronic - 07/29: Hgb = 7.0 (stable); Hct = 25.5 (Stable); s/p 1 unit of pRBC transfusion. - Likely secondary to menorrhagia in the past. - Type and screen. - Pt reports no bleeding. - Pending FOBT.- Consider iron replacement therapy- Serum iron, FE w/total iron binding capacity, ferritin pending #PNA- 07/23 CT Chest: patchy opacities in the right upper lung, consistent withpneumonia.- No fever within the last 24 hrs. - BP normal (121-151/58-71) #Lung nodule- Measured 3mm in left lobe of the lung. - Not appreciated on study done 07/23/2022- F/U with pulmonary outpatient for imaging, and further management. #Smoking- Nicotine patch. Encouraged smoking cessation. #Thyroid nodule- Measured 2.5 cm - Not appreciated on study done 07/23/2022- Pending TSH, T4. - F/U outatient. DVT: Apixaban (Eliquis) 10 mg PO BIDDiet: RegularCode: full Dispo: Home pending clinical stabilization i.e. oxygen weaned to RA Quality: Gen Med Crit Care VTE ProphylaxisVTE prophylaxis initiated: yes (Bilateral PE) Current MedicationsCurrent medication review:I attest that the foregoing medication list in the medical record is true, accurate, and complete to the best of my knowledge. Troy Louis 07/29/22 1449:Attestations Teaching Physician AttestationF/U visit w/ resident:I saw the patient with the resident Roberto Sy MD R1 agree with the resident's findings and plan. at 1311 at 1449 RPT #:[id number] OF REPORTPRProgress ywfy3528-13-06E30:13:00Z.[id number] able for patient hjeeRQPELFWNFAEPFP8722-40-00P65:12:05 [facility] 06:44:00 [id number]+veNd REIr9LHqDFGd9hZVjAAt9kz7zWVzF teL8lJ0DNN4wJe0wo+gTe1MrMUc4868-88-60B68:44:00 [facility] ([facility])Hospitalist Progress NoteREPORT#:[id number] REPORT STATUS: SignedDATE:07/28/22 TIME: 643 PATIENT: MONY JONES UNIT #: [id number]#: [id number] [facility] AGE: 36 SEX: F ATTEND: Troy Louis [facility] AUTHOR: Roberto Sy MD R1 * ALL edits or amendments must be made on the electronic/computer document * Roberto Sy 07/28/22 0644:SubjectiveChief complaint:SOB Transferred here for bilateral PEHPI:VSS within the last 24 hrs. Has been on physical therapy. Transfer out of IM to regular floor. Admits noticing some blood when blowing her nose. Oxygen: NC 4 L , wean off to 2 L Review of SystemsConstitutional:Denies: chills, fatigue, fever. Skin:Denies: abrasion, bruising. Allergy/Immun:Denies: rhinorrhea, sneezing. Eyes:Denies: redness, discharge. ENT:Reports: nose bleeding (when blowing nose ). Respiratory:Denies: SOB, wheezing. Cardiovascular:Denies: chest pain. GI:Denies: abdominal pain. :Denies: dysuria, flank pain. Neuro:Denies: headache. Psych:Denies: anxiety, depression. Objective GeneralVS/I O:Vital Signs: Date Time Temp Pulse Resp B/P B/P Pulse O2 O2 Flow FiO2 Mean Ox Delivery Rate 07/28 1201 82 16 142/62 89 98 07/28 1200 36.8 07/28 1200 Nasal 2 cannula 07/28 1200 83 22 96 07/28 1130 81 28 137/70 96 99 07/28 1100 86 29 134/78 100 98 07/28 1031 81 27 142/63 91 100 07/28 1000 84 32 130/66 90 100 07/28 0901 85 28 134/61 88 100 07/28 0900 86 26 99 12 0830 90 22 138/66 93 99 07/28 0800 36.8 07/28 0800 Nasal 4 cannula 07/28 0800 93 28 137/75 95 96 07/28 0730 83 27 129/70 91 95 07/28 0717 36.5 07/28 0708 87 23 123/60 84 93 07/28 0700 83 26 93 07/28 0600 77 17 118/60 81 95 07/28 0500 79 22 120/63 85 94 07/28 0447 36.9 07/28 0400 83 21 115/58 83 91 07/28 0300 81 22 114/61 79 95 07/28 0200 83 22 127/63 84 94 07/28 0100 85 29 123/68 88 89 07/28 0026 36.6 07/28 0000 91 32 122/80 96 96 07/27 2300 94 32 146/66 95 93 07/27 2200 89 21 121/59 84 94 07/27 2100 92 25 130/60 87 92 07/27 2022 79 Nasal 4 36 cannula 07/27 2022 95 Nasal 4 36 cannula 07/27 2004 Nasal 4 cannula 07/27 1918 36.6 07/27 1900 89 34 132/63 91 96 07/27 1633 36.8 07/27 1534 85 20 89 07/27 1500 85 28 99 07/27 1357 86 47 24 hour I O ending at 0700: 07/28 0700 07/27 1900 Intake Total 300 Output Total Balance 300 Intake, Oral 300 Number Voids 3 PATIENT WEIGHT: Weight (lb): Weight (oz): Weight (kg): 155.000 Physical ExamHead/Eyes: atraumatic, normocephalicNeck: full range of motionCardiovascular: regular rate rhythmRespiratory: on oxygen, aerating well, no distressAbdomen: obese, non-tender, softExtremities: moves allNeuro/JAVA FLEX DEVELOPER: alert, oriented X 3, normal speechSkin: dryPsychiatry: normal affect, normal mood Diagnosis, Assessment Plan Free Text DxA P NotesFree text DxA P notes:Ms. 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 The CT also shows a lung nodule, and thyroid nodule.- Undergo PE thrombectomy via Dr. Dooley. She also recommends that pt needs to beon anticoagulation for at least 6 months - NPO. Oxygen per protocol.- Echo cardiogram is notable for Dilated right ventricle with mildly reduced right ventricle systolic function. Continue medical mgmt. (Dr Hadley)- 07/23 1745: Ct chest showed bilateral pulmonary emboli. The location of some of thepulmonary emboli along the jaramillo of the pulmonary arteries suggests along-standing process. Dr Dooley is notified, she things that this is a new problem. She plans to do another thrombectomy and IVC filer - Heme/onc consulted (Dr Chu) #Right heart strain- f/u TTE, consider RHC, CT C/A/P with contrast to exclude malignancy given pre-cancerous uterine polyps (per cardiology, Dr Merary Hadley) #Precancerous uterine polyps- Underwent D C before- Order CT chest, abdomen, pelvis with contrast to check for malignancy #Anemia Chronic - 07/27: Hgb = 7.1 (stable); Hct = 25.7 (Stable); s/p 1 unit of pRBC transfusion. - Likely secondary to menorrhagia in the past. - Type and screen. - Pt reports no bleeding. - Pending FOBT.- Consider iron replacement therapy #PNA- 07/23 CT Chest: patchy opacities in the right upper lung, consistent withpneumonia.- No fever within the last 24 hrs. - BP normal (121-151/58-71) #Lung nodule- Measured 3mm in left lobe of the lung. - Not appreciated on study done 07/23/2022- F/U with pulmonary outpatient for imaging, and further management. #Smoking- Nicotine patch. Encouraged smoking cessation. #Thyroid nodule- Measured 2.5 cm - Not appreciated on study done 07/23/2022- Pending TSH, T4. - F/U outatient. DVT: Apixaban (Eliquis) 10 mg PO BIDDiet: RegularCode: full Dispo: Home pending clinical stabilization i.e. oxygen weaned to RA Quality: Gen Med Crit Care VTE ProphylaxisVTE prophylaxis initiated: yes (Bilateral PE) Current MedicationsCurrent medication review:I attest that the foregoing medication list in the medical record is true, accurate, and complete to the best of my knowledge. Oksana Angeles 07/28/22 1427:Attestations Teaching Physician AttestationF/U visit w/ resident:I saw the patient with the resident and . . . agree with the resident's findings and plan. at 1312 at 1736 RPT #:[id number] OF REPORTPRProgress [id number]:44:00Z.[id number] able for patient nztqNENYSCOBRPULRM7607-80-92E67:12:49 [facility] 2022-07-27 15:01:00 [id number] g3EiBoJy4TVln/6JEs8rVKZXNR3oR bWFag/C347awx8Ib7mM+wwa9mzc4711-97-76X94:01:00 [facility] ([facility])DT PROGRESS NOTEREPORT#:[id number] REPORT STATUS: SignedDATE:07/27/22 TIME: 1501 PATIENT: MONY JONES UNIT #: [id number]#: [id number] [facility] [birth year] AGE: 36 SEX: F ATTEND: Oksana Angeles MDADM AUTHOR: Darrion Chu MD * ALL edits or amendments must be made on the electronic/computer document * Progress NoteProgress NoteThe patient was seen today for follow-up. She is doing much better today. She was able to walk down the corridor without oxygen and without feeling short of breath. Her breathing has drastically improved compared to yesterday. No new complaints noted. Vital signs temperature 36.7 pulse 80 respiration 18 blood pressure 130/60 O2 saturation 94%.Head and neck no new findings noted.Chest clear and resonant.Heart distant heart sounds regular rhythm.Abdomen no new findings.Musculoskeletal: More prominent diffuse edema/induration in the ankles and legs most likely positional since the patient continues to sit in the chair. No ecchymosis. WBC count 7.1 hemoglobin 7.1 stable hematocrit 25.7 platelet count 180 WBC differential within normal limits. There has been improvement since the initiation of induction dose Eliquis yesterday. We will continue Eliquis and physical therapy with ambulation. at 1504 RPT #:[id number] OF REPORTPRProgress [id number]:01:00Z.[id number] able for patient iccxTOTEAIAEPKKTTQ8730-10-45L52:04:36 [facility] 2022-07-27 14:23:00 [id number] NNf/1h6BM6du/8Von9g0wWsgKxl00 OK8Gx71sxWvHpq/gkj+r37irZ1m4261-91-07X63:23:00 [facility] ([facility])Vascular Surgery Progress NoteREPORT#:[id number] REPORT STATUS: SignedDATE:07/27/22 TIME: 1423 PATIENT: MONY JONES UNIT #: [id number]#: [id number] [facility] [birth year] AGE: 36 SEX: F ATTEND: kOsana Angeles MDA AUTHOR: Leanna Dooley MD * ALL edits or amendments must be made on the electronic/computer document * SubjectiveChief complaint:shortness of breath improved. Ambulating. remains on 3 L /min O2 via NC. Objective GeneralVS/I O:Last Documented: Result Date Time Temp 98.5 07/27 1119 O2 Delivery Nasal cannula 07/27 0700 O2 Flow Rate 4 07/27 0700 Pulse Ox 94 07/27 0600 B/P 130/60 07/27 0600 B/P Mean 87 07/27 0600 Pulse 80 07/27 0600 Resp 18 07/27 0600 FiO2 36 07/26 2026 24 hour I O ending at 0700: 07/27 0700 07/26 1900 Intake Total 594.00 Output Total Balance 594.00 Intake, IV 594.00 Number Voids 3 PATIENT WEIGHT: Weight (lb): Weight (oz): Weight (kg): 155.000 HEENT: mucosal membranes moistNeck: full range of motion, supple/no meningismusCardiovascular: BP/pulses equal bilat.Respiratory: symmetric expansionAbdomen: softExtremities: dry, moves allPulse assess: Vascular pulse assess: Palpated: R radial, L radial. Neuro/JAVA FLEX DEVELOPER: alert, oriented X 3, no motor deficits, no sensory deficitsSkin: dry Diagnosis, Assessment PlanFree Text A P:36 year old female with bilateral submassive pulmonary embolism, provoked in thesetting of recent D and C with IUD placement, s/p PE thrombectomymalignancy work up with CT chest abdomen pelvis revealed second hit ileocaval DVT not seen on cavagram yesterday or pulmonary angiogram with new bilateral saddle PE- s/p b/l ileocaval thrombectomy with repeat PE thrombectomy and IVC filter placementAppreciate heme/onc work up for possible HIT and hypercoagulable work upcontinue anticoagulation for at least 6 monthswill need compression stockings- can be arranged outpatient at 1426 RPT #:[id number] OF REPORTPRProgress yonx1034-83-88Z97:23:00Z.[id number] able for patient gaqtEXAGNATSWHLFJC2749-59-49R56:26:23 [facility] 2022-07-27 07:32:00 [id number] 4MtazR9R0+xh1Fvb2L+uxeA/dE+K3 fysK7mgP7mDX+Beq5wvnjwWrmGl4671-32-97A05:32:00 [facility] Progress NoteREPORT#:[id number] REPORT STATUS: SignedDATE:07/27/22 TIME: 731 PATIENT: MONY JONES UNIT #: [id number]#: [id number] [facility] [birth year] AGE: 36 SEX: F ATTEND: Oksana Angeles [facility] AUTHOR: Andrew Stahl MD R1 * ALL edits or amendments must be made on the electronic/computer document * Andrew Stahl 07/27/22 0732:SubjectiveChief complaint:SOB Transferred here for bilateral PEHPI:No acute events overnight. Afebrile, hemodynamically stable. Tolerating 4L NC. No dyspnea or SOB at rest but continues to have CORRALES. Continues to deny any otherissues Review of SystemsConstitutional:Denies: fever. Respiratory:Reports: CORRALES (dyspnea on exertion), SOB (on exertion). Denies: hemoptysis, non productive cough, parox nocturnal dyspnea, pleurisy, pleuritic pain, pneumonia, productive cough (sputum). Cardiovascular:Reports: CORRALES (dyspnea on exertion). Denies: chest pain, edema, orthopnea, palpitations, parox nocturnal dyspnea. GI:Denies: abdominal pain, constipation, diarrhea, nausea, vomiting. All systems rev neg: except as marked Objective GeneralVS/I O:Vital Signs: Date Time Temp Pulse Resp B/P B/P Pulse O2 O2 Flow FiO2 Mean Ox Delivery Rate 07/27 0718 36.7 07/27 0600 80 18 130/60 87 94 07/27 0536 36.7 18 07/27 0501 81 21 130/83 96 95 07/27 0400 80 19 139/63 91 90 07/27 0300 95 44 137/79 102 93 07/27 0200 81 23 131/64 87 93 07/27 0100 80 24 119/56 81 95 07/27 0008 36.6 18 07/27 0000 82 23 134/63 90 94 07/26 2300 85 26 123/68 89 93 07/26 2200 83 29 130/73 95 97 07/26 2100 84 31 136/68 95 96 07/26 2028 89 34 133/71 97 93 07/26 2026 99 Nasal 4 36 cannula 07/26 2000 Nasal 4 cannula 07/26 1959 95 07/26 1930 36.8 07/26 1915 90 37 123/81 99 07/26 1839 94 33 94 07/26 1800 96 37 96 07/26 1700 91 31 94 07/26 1600 92 38 92 07/26 1556 37.5 07/26 1500 83 29 132/69 93 96 07/26 1400 89 31 136/86 105 96 07/26 1300 84 30 130/72 94 97 07/26 1200 87 29 129/74 94 96 07/26 1118 37.0 07/26 1100 84 25 128/58 84 95 07/26 0900 Nasal 4 cannula 07/26 0807 96 Nasal 4 36 cannula 07/26 0800 86 31 117/69 88 92 24 hour I O ending at 0700: 07/27 0700 07/26 1900 Intake Total 594.00 Output Total Balance 594.00 Intake, IV 594.00 Number Voids 3 PATIENT WEIGHT: Weight (lb): Weight (oz): Weight (kg): 155.000 Medications:Active Meds + DC'd Last 24 HrsApixaban (Eliquis) 10 MG BID PO (CKD) Bupropion HCl (WELLBUTRIN) 100 MG TID PO Melatonin (MELATONIN) 3 MG BEDTIME PRN PO Nicotine (NICODERM) 14 MG DAILY PRN PRN TRANSDERM Polyethylene Glycol (MIRALAX) 17 GM DAILY PRN PRN PO Physical ExamGeneral appearance: alert, awake, orientedHead/Eyes: atraumatic, normocephalicNeck: full range of motionCardiovascular: regular rate rhythmRespiratory: on oxygen, aerating well, no distressAbdomen: obese, non-tender, softExtremities: moves allNeuro/JAVA FLEX DEVELOPER: alert, oriented X 3, normal speechSkin: dryPsychiatry: normal affect, normal mood ResultsFindings/Data:Laboratory Tests 07/26 802 Coagulation APTT (26.2 - 35.4 SECONDS) 31.8 Laboratory Tests 07/26 802 Hematology WBC (3.8 - 9.8 K/MM3) 8.1 RBC (3.58 - 4.97 M/MM3) 3.44 L Hgb (11.2 - 14.9 G/DL) 7.1 L Hct (33.2 - 43.5 %) 25.7 L MCV (80.7 - 99.1 fL) 75 L MCH (27.0 - 34.1 pg) 20.6 L MCHC (32.2 - 35.7 %) 27.6 L RDW (12.1 - 15.2 %) 18.6 H Plt Count (129 - 368 K/MM3) 162 MPV (7.4 - 10.4 fl) 9.1 Neut % (Auto) (43 - 75 %) 73.9 Lymph % (Auto) (14 - 44 %) 15.7 [place] % (Auto) (4 - 13 %) 5.9 Eos % (Auto) (0 - 6 %) 3.0 Baso % (Auto) (0 - 2 %) 0.4 Neut # (Auto) (2.0 - 7.6 K/mm3) 5.96 Lymph # (Auto) (1.0 - 3.8 K/mm3) 1.27 [place] # (Auto) (0.1 - 0.8 K/mm3) 0.48 Eos # (Auto) (0.0 - 0.2 K/mm3) 0.24 H Baso # (Auto) (0.0 - 0.2 K/mm3) 0.03 Immature Gran % (0.0 - 2.0 %) 1.1 Nucleated RBC % (0 - 1.0 %) 0.7 Nucleated RBCs # (Man) (0.0 - 0.1 K/mm3) 0.06 Results: labs reviewed, vital signs reviewed Diagnosis, Assessment PlanProblem List/A P: 1. 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 Anemia 4. Incidental lung nodule, less than or equal to 3mm 5. Thyroid nodule 6. Smoker Free Text DxA P NotesFree text DxA P notes:Ms. 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 The CT also shows a lung nodule, and thyroid nodule.- Undergo PE thrombectomy via Dr. Dooley. She also recommends that pt needs to beon anticoagulation for at least 6 months - NPO. Oxygen per protocol.- Echo cardiogram is notable for Dilated right ventricle with mildly reduced right ventricle systolic function. Continue medical mgmt. (Dr Hadley)- 07/23 1745: Ct chest showed bilateral pulmonary emboli. The location of some of thepulmonary emboli along the jaramillo of the pulmonary arteries suggests along-standing process. Dr Dooley is notified, she things that this is a new problem. She plans to do another thrombectomy and IVC filer - Heme/onc consulted (Dr Chu) #Right heart strain- f/u TTE, consider RHC, CT C/A/P with contrast to exclude malignancy given pre-cancerous uterine polyps (per cardiology, Dr Merary Hadley) #Precancerous uterine polyps- Underwent D C before- Order CT chest, abdomen, pelvis with contrast to check for malignancy #Anemia Chronic - 07/26: Hgb = 7.1; Hct = 25.7; s/p 1 unit of pRBC transfusion. - Likely secondary to menorrhagia in the past. - Type and screen. - Pt reports no bleeding. - Pending FOBT.- Consider iron replacement therapy #PNA- 07/23 CT Chest: patchy opacities in the right upper lung, consistent withpneumonia.- No fever within the last 24 hrs. - BP normal (121-151/58-71) #Long nodule- Measured 3mm in left lobe of the lung. - Not appreciated on study done 07/23/2022- F/U with pulmonary outpatient for imaging, and further management. #Smoking- Nicotine patch. Encouraged smoking cessation. #Thyroid nodule- Measured 2.5 cm - Not appreciated on study done 07/23/2022- Pending TSH, T4. - F/U outatient. DVT: EliquisDiet: RegularCode: full Dispo: Home pending clinical stabilization i.e. oxygen weaned to RA Quality: Gen Med Crit Care VTE ProphylaxisVTE prophylaxis initiated: yes (Bilateral PE) Current MedicationsCurrent medication review:I attest that the foregoing medication list in the medical record is true, accurate, and complete to the best of my knowledge. Oksana Angeles 07/27/22 0537:Attestations Teaching Physician AttestationF/U visit w/ resident:I saw the patient with the resident and . . . agree with the resident's findings and plan. at 1351 at 1548 [facility] #:[id number] OF REPORTPRProgress tmza4373-04-96H55:32:00Z.[id number] able for patient pvxvSOXVQPYHTVVSKQ8869-48-13N48:51:52 [facility] 13:47:00 [id number] hnmnXxM+G7Pky/KBIga9iPcQI8RDe pZLF97FDFgpAE+swy/AyTFiZ+CA0786-54-56W24:47:00 [facility] ([facility])DT PROGRESS NOTEREPORT#:[id number] REPORT STATUS: SignedDATE:07/26/22 TIME: 1347 PATIENT: MONY JONES UNIT #: [id number]#: [id number] [address] [birth year] AGE: 36 SEX: F ATTEND: Oksana Angeles [facility] AUTHOR: Darrion Chu MD * ALL edits or amendments must be made on the electronic/computer document * Progress NoteProgress NoteThe patient was seen today for follow-up. She underwent repeated embolectomy yesterday upon the demonstration of new crops. Dr. Dooley informed me yesterday that the clots appeared fresh and despite platelet count increasing and within the normal range the concern was for the possibility of HIT. The test was done yesterday and I saw the result sill worker today. Heparin drip was discontinued and the patient is started on induction dose Eliquis. Clinically the patient tells me that the shortness of breath post second thrombectomy has not significantly improved compared to before the procedure. The patient also had IVC filter placed yesterday. No new complaints noted. Vital signs temperature 37 pulse 80 respiration 21 blood pressure 127/62 O2 saturation 96% on 36% FiO2.The patient is alert oriented and pleasant. She is sitting in the recliner.Head and neck no new findings noted.Chest rather harsh breath sounds bilaterally. Resonant chest.Heart: Distant heart sounds regular rhythm.Abdomen fatty distention peristalsis minimal.Musculoskeletal +1 bilateral pretibial edema no calf tenderness. WBC count 8.1 with normal differential hemoglobin stable at 7.1 hematocrit 25.7 and platelet count 162. The patient has heparin allergy. I discussed with the patient that she should not receive heparin or heparin like agents in the future. I hope that she will start having gradually improved breathing with the initiation of Eliquis. The case was discussed with the medical team. at 1354 RPT #:[id number] OF REPORTPRProgress ibnx3862-66-78I04:47:00Z.[id number] able for patient rekxATYHABENPSCULV6182-49-36S89:54:24 [facility] 2022-07-26 08:50:00 [id number] 86gEB7j0WZXJq2wrKpmF6TS3aAKfk Ee2WcBBuOHNVf/qFExEXWKplFq69364-15-74Q57:50:00 [facility] ([facility])Cardiology Progress NoteREPORT#:[id number] REPORT STATUS: SignedDATE:07/26/22 TIME: 0850 PATIENT: MONY JONES UNIT #: [id number]#: [id number] ROOM/BED: [facility]-ADOB: [birth year] AGE: 36 SEX: F ATTEND: Oksana Angeles 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 Still needing O2 Objective GeneralVS/I O:24 hour I O ending at 0700: 07/26 0700 07/25 1900 Intake Total 350 Output Total Balance 350 Intake, 350 Packed Cells Number Voids 1 Vital Signs: Date Time Temp Pulse Resp B/P B/P Pulse O2 O2 Flow FiO2 Mean Ox Delivery Rate 07/26 0807 96 Nasal 4 36 cannula 07/26 0717 36.6 07/26 0600 80 21 127/62 86 93 07/26 0530 36.3 07/26 0500 84 20 118/58 81 89 07/26 0400 84 21 125/61 84 90 07/26 0300 87 24 119/57 74 91 07/26 0200 80 22 121/65 86 89 07/26 0100 79 20 119/64 86 93 07/26 0042 36.8 07/26 0000 82 22 120/61 84 92 07/25 2300 83 23 119/60 83 92 07/258 Nasal 5 cannula 07/25 2201 85 26 126/74 94 97 07/25 2115 97 Nasal 5 44 cannula 07/25 2101 98 150/76 106 96 07/25 2011 36.5 07/25 2000 85 27 130/74 96 95 07/25 1900 91 24 142/79 101 94 07/25 1800 93 27 141/69 99 95 07/25 1720 93 33 137/82 93 07/25 1636 83 22 133/60 99 07/25 1130 78 25 142/65 98 07/25 1104 36.7 07/25 1030 76 24 133/101 99 07/25 1000 80 31 114/82 95 07/25 0945 80 28 119/72 98 07/25 0938 36.6 07/25 0923 36.4 07/25 0900 82 32 127/64 96 PATIENT WEIGHT: Weight (lb): Weight (oz): Weight (kg): 155.000 Physical ExamCardiovascular: CV assessment: regular rate and rhythm, normal heart soundsRespiratory: clear to auscultation, no distressAbdomen: soft, non-tenderLower extremity: LE assessment: no edema Diagnosis, Assessment PlanProblem List/A P: 1. Pulmonary embolism 2. Anemia 3. Smoker Free Text DxA P NotesFree Text DxA P Notes:36 year old female smoker with history of anemia, lolita, and recent D/C of pre-cancerous uterine polyps found to have BL PE with RH strain s/p mechanical aspiration x2 and ivc filter placement #Right heart strain-patient may have element of CTEPH-plan for follow up TTE in 3 months. if PA pressures still elevated will do RHC as outpatient to begin PH drugs-patient can follow up in my clinin in about 4 weeks #BL PE-per patient no DVT found on LE ultrasound-CT negative for masses-consider hematology conuslt for hypercoaguable work up-agree with anticoagulation at 0853 RPT #:[id number] OF REPORTPRProgress ojsf3067-81-53H92:50:00Z.[id number] able for patient nqhrTGCBXQEXQYGESD4370-25-81H06:53:55 [facility] 2022-07-26 06:12:00 [id number] FCq++ZXycuhA6CnzLXkwKNaaN1zm+ Aasmu/LFtBefxPg+J5aViissOn11700-26-63O67:12:00 [facility] ([facility] Progress NoteREPORT#:[id number] REPORT STATUS: SignedDATE:07/26/22 TIME: 0612 PATIENT: MONY JONES UNIT #: [id number]#: [id number] ROOM/BED: [facility]-ADOB: [birth year] AGE: 36 SEX: F ATTEND: Oksana Angeles AUTHOR: Roberto Sy MD R1 * ALL edits or amendments must be made on the electronic/computer document * Roberto Sy 07/26/22 0612:SubjectiveChief complaint:SOB Transferred here for bilateral PEHPI:VSS within the last [address] Chu ordered to stop heparin due to elevated lab value (positive for HIT antibody). Thrombectomy yesterday. Admits some SOB especially with ambulation. Review of SystemsConstitutional:Denies: chills, fatigue, fever. Skin:Denies: abrasion, bruising. Allergy/Immun:Denies: rhinorrhea, sneezing. Eyes:Denies: redness, discharge. ENT:Denies: throat pain. Respiratory:Reports: SOB. Denies: wheezing. Cardiovascular:Denies: chest pain. GI:Denies: abdominal pain. :Denies: dysuria, flank pain. Neuro:Denies: confusion, headache. Psych:Denies: anxiety. Objective GeneralVS/I O:Vital Signs: Date Time Temp Pulse Resp B/P B/P Pulse O2 O2 Flow FiO2 Mean Ox Delivery Rate 07/26 1118 37.0 07/26 0900 Nasal 4 cannula 07/26 0807 96 Nasal 4 36 cannula 07/26 0717 36.6 07/26 0600 80 21 127/62 86 93 07/26 0530 36.3 07/26 0500 84 20 118/58 81 89 07/26 0400 84 21 125/61 84 90 07/26 0300 87 24 119/57 74 91 07/26 0200 80 22 121/65 86 89 07/26 0100 79 20 119/64 86 93 07/26 0042 36.8 07/26 0000 82 22 120/61 84 92 07/25 2300 83 23 119/60 83 92 07/25 2208 Nasal 5 cannula 07/25 2201 85 26 126/74 94 97 07/25 2115 97 Nasal 5 44 cannula 07/25 2101 98 150/76 106 96 07/25 2011 36.5 07/25 2000 85 27 130/74 96 95 07/25 1900 91 24 142/79 101 94 07/25 1800 93 27 141/69 99 95 07/25 1720 93 33 137/82 93 07/25 1636 83 22 133/60 99 24 hour I O ending at 0700: 07/26 0700 07/25 1900 Intake Total 350 Output Total Balance 350 Intake, 350 Packed Cells Number Voids 1 PATIENT WEIGHT: Weight (lb): Weight (oz): Weight (kg): 155.000 Physical ExamHead/Eyes: atraumatic, normocephalicNeck: full range of motionCardiovascular: regular rate rhythmRespiratory: on oxygen, aerating well, no distressAbdomen: obese, non-tender, softExtremities: moves allNeuro/JAVA FLEX DEVELOPER: alert, oriented X 3, normal speechSkin: dryPsychiatry: normal affect, normal mood ResultsFindings/Data:Laboratory Tests 07/26 Coagulation APTT (26.2 - 35.4 SECONDS) 31.8 88.4 *H Laboratory Tests 07/26 802 Hematology WBC (3.8 - 9.8 K/MM3) 8.1 RBC (3.58 - 4.97 M/MM3) 3.44 L Hgb (11.2 - 14.9 G/DL) 7.1 L Hct (33.2 - 43.5 %) 25.7 L MCV (80.7 - 99.1 fL) 75 L MCH (27.0 - 34.1 pg) 20.6 L MCHC (32.2 - 35.7 %) 27.6 L RDW (12.1 - 15.2 %) 18.6 H Plt Count (129 - 368 K/MM3) 162 MPV (7.4 - 10.4 fl) 9.1 Neut % (Auto) (43 - 75 %) 73.9 Lymph % (Auto) (14 - 44 %) 15.7 [place] % (Auto) (4 - 13 %) 5.9 Eos % (Auto) (0 - 6 %) 3.0 Baso % (Auto) (0 - 2 %) 0.4 Neut # (Auto) (2.0 - 7.6 K/mm3) 5.96 Lymph # (Auto) (1.0 - 3.8 K/mm3) 1.27 [place] # (Auto) (0.1 - 0.8 K/mm3) 0.48 Eos # (Auto) (0.0 - 0.2 K/mm3) 0.24 H Baso # (Auto) (0.0 - 0.2 K/mm3) 0.03 Immature Gran % (0.0 - 2.0 %) 1.1 Nucleated RBC % (0 - 1.0 %) 0.7 Nucleated RBCs # (Man) (0.0 - 0.1 K/mm3) 0.06 Laboratory Tests 07/25 2249 Immunology Heparin-induced Ab (()) POSITIVE *A Diagnosis, Assessment Plan Free Text DxA P NotesFree text DxA P notes:#Positive for heparin induced antibody- Heparin is DC- Pt is transitioned to apixaban (Eliquis) 10 mg PO BID- Pt is advised to not use heparin product in the future #Bilateral pulmonary embolism - Found via CT at [facility] with some reflux of contrast into the IVC suggestive of possible right heart strain. The CT also shows a lung nodule, and thyroid nodule.- Undergo PE thrombectomy via Dr. Dooley. She also recommends that pt needs to beon anticoagulation for at least 6 months - NPO. Oxygen per protocol.- Echo cardiogram is notable for Dilated right ventricle with mildly reduced right ventricle systolic function. Continue medical mgmt. (Dr Hadley)- 07/23 1745: Ct chest showed bilateral pulmonary emboli. The location of some of thepulmonary emboli along the jaramillo of the pulmonary arteries suggests along-standing process. Dr Dooley is notified, she things that this is a new problem. She plans to do another thrombectomy and IVC filer - Heme/onc consulted (Dr Chu) #Right heart strain- f/u TTE, consider RHC, CT C/A/P with contrast to exclude malignancy given pre-cancerous uterine polyps (per cardiology, Dr Merary Hadley) #Precancerous uterine polyps- Underwent D C before- Order CT chest, abdomen, pelvis with contrast to check for malignancy #Anemia Chronic - 07/26: Hgb = 7.1; Hct = 25.7; s/p 1 unit of pRBC transfusion. - Likely secondary to menorrhagia in the past. - Type and screen. - Pt reports no bleeding. - Pending FOBT.- Consider iron replacement therapy #PNA- 07/23 CT Chest: patchy opacities in the right upper lung, consistent withpneumonia.- No fever within the last 24 hrs. - BP normal (121-151/58-71) #Long nudole- Measured 3mm in left lobe of the lung. - Not appreciated on study done 07/23/2022- F/U with pulmonary outpatient for imaging, and further management. #Smoking- Nicotine patch. Encouraged smoking cessation. #Thyroid nodule- Measured 2.5 cm - Not appreciated on study done 07/23/2022- Pending TSH, T4. - F/U outatient. DVT: Heparin.Diet: NPO Quality: Gen Med Crit Care VTE ProphylaxisVTE prophylaxis initiated: yes (Bilateral PE) Current MedicationsCurrent medication review:I attest that the foregoing medication list in the medical record is true, accurate, and complete to the best of my knowledge. Oksana Angeles 07/26/22 1539:Attestations Teaching Physician AttestationF/U visit w/ resident:I saw the patient with the resident and . . . agree with the resident's findings and plan. agree with the resident's findings and plan EXCEPT: ==Acute hypoxic respiratory failure sec to bilateral PE - s/p thrombectomy x 2 at 1532 at 2042 RPT #:[id number] OF REPORTPRProgress [id number]:12:00Z.[id number] able for patient zbytAQKNKJYLZDLICH9738-30-31D14:32:15 [facility] 2022-07-25 15:47:00 [id number] fxfxDkOc4im3j/PPa5Gnku7R07Nhb bMFoTy8QUYJuEQo+gHQvGeiV2J03026-90-59B05:47:00 [facility] ([facility])Cardiology Progress NoteREPORT#:[id number] REPORT STATUS: SignedDATE:07/25/22 TIME: 1547 PATIENT: MONY JONES UNIT #: [id number]#: [id number] [facility] AGE: 36 SEX: F ATTEND: Oksana Angeles MDADM AUTHOR: Merary Hadley MD * ALL edits or amendments must be made on the electronic/computer document * SubjectiveChief complaint:SOBHPI:36 year old female smoker with history of LOLITA, anemia from menhorragia,and recent D/C for uterine polyps who was found to have BL PE with evidence of rightheart strain, now s/p mechanical thrombectomy, then had second hit PE requiring repeat thrombectomy from PA and IVC, as well as IVC filter placement Free Text Subj NotesFree Text Subj Notes:continue to have CORRALES this am. s/p succesful repeat mechanical thrombectomy for PA and IVC, as well as ivc filter placement Objective GeneralVS/I O:24 hour I O ending at 0700: 07/25 0707/24 1900 Intake Total 300 Output Total Balance 300 Intake, Oral 300 Number 1 Bowel Movements Number Voids 3 2 Vital Signs: Date Time Temp Pulse Resp B/P B/P Pulse O2 O2 Flow FiO2 Mean Ox Delivery Rate 07/25 1130 78 25 142/65 98 07/25 1104 36.7 07/25 1030 76 24 133/101 99 07/25 1000 80 31 114/82 95 07/25 0945 80 28 119/72 98 07/25 0938 36.6 07/25 0923 36.4 07/25 0900 82 32 127/64 96 07/25 0848 79 23 134/69 94 07/25 0754 Nasal 5 cannula 07/25 0723 78 18 95 07/25 0707 36.7 07/25 07 80 19 93 07/25 0404 36.8 07/25 0200 80 20 135/63 86 94 07/25 0100 97 27 151/72 103 89 07/25 0000 85 24 137/64 92 94 07/24 2330 36.9 07/24 2300 88 26 127/73 93 95 07/24 2223 100 32 117/81 86 84 07/24 2100 83 27 126/81 98 95 07/24 2006 36.9 07/24 2000 Nasal 3 cannula 07/24 1700 92 32 128/85 100 94 07/24 1650 86 39 131/106 114 98 07/24 1600 87 36 95 PATIENT WEIGHT: Weight (lb): Weight (oz): Weight (kg): 155.000 Physical ExamGeneral appearance: alert, awakeCardiovascular: CV assessment: regular rate and rhythm, normal heart soundsRespiratory: clear to auscultation, no distressAbdomen: soft, non-tenderLower extremity: LE assessment: no edema ResultsTelemetry Interpretation:sinus rhythmEcho results:dialted RV with mild reduciton in systolic function, normal LV function Diagnosis, Assessment PlanProblem List/A P: 1. Pulmonary embolism 2. Anemia 3. Smoker Free Text DxA P NotesFree Text DxA P Notes:36 year old female smoker with history of anemia, lolita, and recent D/C of pre-cancerous uterine polyps found to have BL PE with RH strain s/p mechanical aspiration #Right heart strain-patient may have element of CTEPH-plan for follow up TTE in 3 months. if PA pressures still elevated will do RHC as outpatient to begin PH drugs #BL PE-per patient no DVT found on LE ultrasound-CT negative for masses-consider hematology conuslt for hypercoaguable work up-agree with anticoagulation at 1553 [facility] #:[id number] OF REPORTPRProgress [id number]:47:00Z.[id number] able for patient iyirHHPDDVWFBVFFFN6241-00-69Q19:54:14 [facility] 2022-07-25 15:29:00 [id number]+qp1VKHoI RcGCQrwqfjBibK0ePNA0nljnyqw2205-44-61K89:29:38148 [address] [place] [address] PATIENT NAME: MONY JONES ADMIT DATE: 07/22/22ACCOUNT NO: [id number] ROOM NO: Z.437 AGE: 36 REPORT TYPE: OPERATIVE REPORT SEX: F ADMITTING PHYSICIAN:Troy Louis MD ATTENDING PHYSICIAN:Troy Louis MD OPERATION DATE: 07/25/2022 PREOPERATIVE DIAGNOSES: Second heparin-induced thrombocytopenia deep vein thrombosis, pulmonary embolism. POSTOPERATIVE DIAGNOSES: Second heparin-induced thrombocytopenia deep vein thrombosis, pulmonary embolism. OPERATIONS: Thrombectomy of bilateral common iliac veins and inferior vena cava, cavogram, bilateral main and subsegmental pulmonary embolectomies, and insertion of inferior vena cava filter. OPERATING SURGEON: Leanna Dooley MD OUTBOARD SYSTEM OPERATOR: Merary Hadley MD ANESTHESIA: COMPLICATIONS: None. ESTIMATED BLOOD LOSS: Minimal. DESCRIPTION OF PROCEDURE: The patient was brought into the angiography suite. She was placed in the supine position. She was placed under moderate sedation and continued to be monitored throughout the case. She was then prepped and draped in normal sterile fashion. Under ultrasound guidance, the right common femoral vein was cannulated using a micropuncture needle. A micropuncture wire was then advanced. A micropuncture sheath was advanced over a J wire. A 6-Slovenian sheath was advanced and a pigtail was advanced into the inferior vena cava and cavogram shot performed, which showed thrombus in the distal inferior vena cava. We also stored an ultrasound image of the right common femoral vein cannulation. In a similar fashion, we cannulated the left common femoral vein using a micropuncture needle and stored an ultrasound image showing cannulation of the left common femoral vein. A Microwire was advanced. A micropuncture sheath was advanced over a J wire. A 6-Slovenian sheath was advanced and another sheath image showed thrombus in both the iliac veins as well as the distal inferior vena cava. Systemic heparin was given. We upsize the left femoral vein sheath to an 11-Slovenian sheath and advanced an Inari disk into the inferior vena cava above the thrombus. Next, we upsize using the 11-Slovenian dilator and subsequently a 20-Slovenian dilator. The right common femoral vein then advanced aT20 FlowTriever and suction out the right iliac vein DVT. Next, we switched to a Basalt 22-Slovenian DrySeal Sheath and we did a sheath exchange on the left side PATIENT NAME: MONY JONES after we had removed the disk for the FlowTriever and through the Basalt DrySeal sheath on the right side, we placed the disks to protect the inferior vena cava and from a pulmonary embolism going to the right heart. 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 The FlowTriever was removed from the left side and exchanged for a 22-Slovenian Basalt DrySeal sheath. We then advanced a pigtail into the right heart and into the main pulmonary artery, we over a Wholey wire and a long Berenstein catheter was used to do a wire exchange in theright middle lobe for an Amplatzer sheath and we then advanced a T20 FlowTrieverinto the right middle lobe and did a suction thrombectomy with retrieval of chronic thrombus. We also did a suction thrombectomy of the right upper lobe aswell as the left main and left lower lobes. Completion angiography showed no residual thrombus and brisk filling of both the right and left lung pisano and at this point, we did a final cavogram image, which showed no evidence of any residual thrombus. We then, over a Wholey wire advanced the Cook IVC filter andwe ensured that the hook was facing medially. We parked the sheath at the L2 level. The filter was advanced and deployed at the bottom of L2 with success. At this point, all wires and catheters were removed and sheaths were removed with hemostatic U stitches placed. All instrument, needle, and sponge counts were correct at the end of the case and the patient tolerated the procedure well. Dictated By: Leanna Dooley MD Date Dictated: 07/25/2022 15:29:57Date Transcribed: 07/25/2022 21:21:36RM/LRSJob #: [id number] ID: [id number] by Leanna Dooley MD On 08/06/2022 03:42:17 PM at 0342 PATIENT NAME: MONY JONES [id number]:21:00Z.[id number] lable for patient riacURUAAKOCPJEIJE9820-75-27F24:42:55 [facility] 2022-07-25 06:32:00 [id number] Q0StJ+to6VghXHXin71zAvCEYQFIS TVp8idWNuWqAqXdH8YAJgGsS3lP4678-17-83A67:32:00 [facility] ([facility]ospital[facility] Progress NoteREPORT#:[id number] REPORT STATUS: SignedDATE:07/25/22 TIME: 0632 PATIENT: MONY JONES UNIT #: [id number]#: [id number] [facility] [birth year] AGE: 36 SEX: F ATTEND: Oksana Angeles [facility] AUTHOR: Roberto Sy MD R1 * ALL edits or amendments must be made on the electronic/computer document * Roberto Sy 07/25/22 0632:SubjectiveChief complaint:SOB Transferred here for bilateral PEHPI:NAEO. Was hypoxic (O2 sat = 81 at one point), other than that VSS. Hold heparin drip due to thrombectomy procedure today. Denies fever. SOB with walking to restroom. Review of SystemsConstitutional:Denies: chills, fatigue, fever. Skin:Denies: abrasion, bruising. Allergy/Immun:Denies: rhinorrhea, sneezing. Eyes:Denies: redness, discharge. ENT:Denies: throat pain. Respiratory:Denies: SOB, wheezing. Cardiovascular:Denies: chest pain. GI:Denies: abdominal pain, vomiting. :Denies: dysuria, flank pain. Neuro:Denies: confusion, headache. Psych:Denies: anxiety, depression. Objective GeneralVS/I O:Vital Signs: Date Time Temp Pulse Resp B/P B/P Pulse O2 O2 Flow FiO2 Mean Ox Delivery Rate 07/25 1130 78 25 142/65 98 07/25 1104 36.7 07/25 1030 76 24 133/101 99 07/25 1000 80 31 114/82 95 07/25 0945 80 28 119/72 98 07/25 0938 36.6 07/25 0923 36.4 07/25 0900 82 32 127/64 96 07/25 0848 79 23 134/69 94 07/25 0754 Nasal 5 cannula 07/25 0723 78 18 95 07/25 0707 36.7 07/25 0700 80 19 93 07/25 0404 36.8 07/25 0200 80 20 135/63 86 94 07/25 0100 97 27 151/72 103 89 07/25 0000 85 24 137/64 92 94 07/24 2330 36.9 07/24 2300 88 26 127/73 93 95 07/24 2223 100 32 117/81 86 84 07/24 2100 83 27 126/81 98 95 07/24 2006 36.9 07/24 2000 Nasal 3 cannula 24 hour I O ending at 0700: 07/25 0707/24 1900 Intake Total 300 Output Total Balance 300 Intake, Oral 300 Number 1 Bowel Movements Number Voids 3 2 PATIENT WEIGHT: Weight (lb): Weight (oz): Weight (kg): 155.000 Physical ExamHead/Eyes: atraumatic, normocephalicNeck: full range of motionCardiovascular: regular rate rhythmRespiratory: on oxygen, aerating well, no distressAbdomen: obese, non-tender, softExtremities: moves allNeuro/JAVA FLEX DEVELOPER: alert, oriented X 3, normal speechSkin: dryPsychiatry: normal affect, normal mood ResultsFindings/Data:Laboratory Tests 07/25 438 Chemistry Sodium (137 - 145 MMOL/L) 136 L Potassium (3.5 - 5.1 MMOL/L) 3.5 Chloride (98 - 107 MMOL/L) 103 Carbon Dioxide (22 - 30 MMOL/L) 29 Anion Gap (14 - 24 MMOL/L) 8 L BUN (7 - 17 MG/DL) 6 L Creatinine (0.52 - 1.04 MG/DL) 0.80 Glomerular Filtr Rate > 60 Glucose (74 - 106 MG/DL) 123 H Calcium (8.4 - 10.2 MG/DL) 8.2 L Laboratory Tests 07/25 07/25 07/25 07/25 07/25 1429 1404 1340 1316 0438 Coagulation APTT (26.2 - 35.4 SECONDS) 66.6 *H Activated Coag Time (74 - 137 SEC) 251 H 227 H 257 H 239 H 07/24 2200 Coagulation APTT (26.2 - 35.4 SECONDS) 49.1 H Laboratory Tests 07/25 438 Hematology WBC (3.8 - 9.8 K/MM3) 8.6 RBC (3.58 - 4.97 M/MM3) 3.45 L Hgb (11.2 - 14.9 G/DL) 7.0 L Hct (33.2 - 43.5 %) 25.8 L MCV (80.7 - 99.1 fL) 75 L MCH (27.0 - 34.1 pg) 20.3 L MCHC (32.2 - 35.7 %) 27.1 L RDW (12.1 - 15.2 %) 18.7 H Plt Count (129 - 368 K/MM3) 181 MPV (7.4 - 10.4 fl) 9.7 Neut % (Auto) (43 - 75 %) 67.5 Lymph % (Auto) (14 - 44 %) 23.2 [place] % (Auto) (4 - 13 %) 5.5 Eos % (Auto) (0 - 6 %) 2.5 Baso % (Auto) (0 - 2 %) 0.4 Neut # (Auto) (2.0 - 7.6 K/mm3) 5.78 Lymph # (Auto) (1.0 - 3.8 K/mm3) 1.98 [place] # (Auto) (0.1 - 0.8 K/mm3) 0.47 Eos # (Auto) (0.0 - 0.2 K/mm3) 0.21 H Baso # (Auto) (0.0 - 0.2 K/mm3) 0.03 Immature Gran % (0.0 - 2.0 %) 0.9 Nucleated RBC % (0 - 1.0 %) 0.6 Nucleated RBCs # (Man) (0.0 - 0.1 K/mm3) 0.05 Diagnosis, Assessment Plan Free Text DxA P NotesFree text DxA P notes:#Bilateral pulmonary embolism - Found via CT at [facility] with some reflux of contrast into the IVC suggestive of possible right heart strain. The CT also shows a lung nodule, and thyroid nodule.- Undergo PE thrombectomy via Dr. Dooley. She also recommends that pt needs to beon anticoagulation for at least 6 months - NPO. Oxygen per protocol.- IV Heparin. - Echo cardiogram is notable for Dilated right ventricle with mildly reduced right ventricle systolic function. Continue medical mgmt. (Dr Hadley)- 07/235: Ct chest showed bilateral pulmonary emboli. The location of some of thepulmonary emboli along the jaramillo of the pulmonary arteries suggests along-standing process. Dr Dooley is notified, she things that this is a new problem. She plans to do another thrombectomy and IVC filer - Heme/onc consulted (Dr Chu) #Right heart strain- f/u TTE, consider RHC, CT C/A/P with contrast to exclude malignancy given pre-cancerous uterine polyps (per cardiology, Dr Merary Hadley) #Precancerous uterine polyps- Underwent D C before- Order CT chest, abdomen, pelvis with contrast to check for malignancy #Anemia Chronic - 07/24: Hgb = 7.0 (trending down from 7.5); Hct = 25.8 (trending down from 28)- 1 unit of pRBC transfused- Likely secondary to menorrhagia in the past. - Type and screen. - Pt reports no bleeding. - Pending FOBT.- Consider iron replacement therapy #PNA- 07/23 CT Chest: patchy opacities in the right upper lung, consistent withpneumonia.- No fever within the last 24 hrs. - BP normal (121-151/58-71) #Long nudole- Measured 3mm in left lobe of the lung. - not appreciated on study done 07/23/2022- F/U with pulmonary outpatient for imaging, and further management. #Smoking- Nicotine patch. Encouraged smoking cessation. #Thyroid nodule- Measured 2.5 cm - Not appreciated on study done 07/23/2022- Pending TSH, T4. - F/U outatient. DVT: Heparin.Diet: NPO Quality: Gen Med Crit Care VTE ProphylaxisVTE prophylaxis initiated: yes (Bilateral PE) Current MedicationsCurrent medication review:I attest that the foregoing medication list in the medical record is true, accurate, and complete to the best of my knowledge. Oksana Angeles 07/26/222034:Attestations Teaching Physician AttestationF/U visit w/ resident:I saw the patient with the resident and . . . agree with the resident's findings and plan. agree with the resident's findings and plan EXCEPT: ==Acute hypoxic respiratory failure sec to bilateral PE at 1757 at 2042 RPT #:[id number] OF REPORTPRProgress [id number]:32:00Z.[id number] able for patient iecrMHRQHYKVNRXVSD0958-84-57F61:58:14 [facility] 2022-07-24 19:03:00 [id number] Pcc8tQK06Wo1NAnuhFtRy+5+AhJZO bSm91qqwnOlM7aqOorEyRCStBgZ3450-78-87I22:03:00 [facility] Progress NoteREPORT#:[id number] REPORT STATUS: SignedDATE:07/24/22 TIME: 190 PATIENT: MONY JONES UNIT #: [id number]#: [id number] ROOM/BED: [facility]-ADOB: [birth year] AGE: 36 SEX: F ATTEND: Oksana Angeles AUTHOR: Leanna Dooley MD * ALL edits or amendments must be made on the electronic/computer document * SubjectiveChief complaint:shortness of breath with any movement Objective GeneralVS/I O:Last Documented: Result Date Time Pulse Ox 94 07/24 1700 B/P 128/85 07/24 1700 B/P Mean 100 07/24 1700 Pulse 92 07/24 1700 Resp 32 07/24 1700 Temp 98.1 07/24 1500 O2 Delivery Nasal cannula 07/24 0911 O2 Flow Rate 4 07/24 0911 24 hour I O ending at 0700: 07/24 0700 07/23 1900 Intake Total Output Total Balance Number 2 Bowel Movements Number Voids 3 PATIENT WEIGHT: Weight (lb): Weight (oz): Weight (kg): 155.000 HEENT: mucosal membranes moistNeck: full range of motion, supple/no meningismusCardiovascular: BP/pulses equal bilat.Respiratory: shortness of breath, symmetric expansionAbdomen: softExtremities: dry, moves allPulse assess: Vascular pulse assess: Palpated: R radial, L radial. Neuro/JAVA FLEX DEVELOPER: alert, oriented X 3, no motor deficits, no sensory deficitsSkin: dry Diagnosis, Assessment PlanFree Text A P:36 year old female with bilateral submassive pulmonary embolism, provoked in thesetting of recent D and C with IUD placement, s/p PE thrombectomymalignancy work up with CT chest abdomen pelvis revealed second hit ileocaval DVT not seen on cavagram yesterday or pulmonary angiogram with new bilateral saddle PE- will plan on ileocaval thrombectomy with repeat PE thrombectomy and IVC filter placementalso recommend heme/onc work up for possible HIT and hypercoagulable work upcontinue anticoagulation for at least 6 monthswill need compression stockings- can be arranged outpatient at 1905 RPT #:[id number] OF REPORTPRProgress cowj3151-30-57U70:03:00Z.[id number] able for patient htfkKLCRVEULHXUUWF5399-95-69T65:05:41 [facility] 2022-07-24 13:17:00 [id number] yq1q/eYj4y57UXh2BsgowQzgN0JXg /WiZDiKzyN61uEb5HOdqKITMlGM6626-81-69Q86:17:00 [facility] ([facility])DT Consult NoteREPORT#:[id number] REPORT STATUS: SignedDATE:07/24/22 TIME: 1317 PATIENT: MONY JONES UNIT #: [id number]#: [id number] [facility] AGE: 36 SEX: F ATTEND: Oksana Angeles AUTHOR: Darrion Chu MD * ALL edits or amendments must be made on the electronic/computer document * CONSULT NOTENote:Reason for consultation: Extensive pulmonary embolism with right ventricular strain. History of present illness: This is a 36-year-old morbidly obese smoker with theabove diagnosis. The patient dates back her chest symptoms to 07/07/2022 when she started to have shortness of breath and chest pressure progressed. The patient was finally recently evaluated in [facility] with chest CT and was found to have bilateral pulmonary emboli with some reflux of contrastinto the IVC suggestive of possible right heart strain. There was also a lung nodule and thyroid nodule. Lower extremity Doppler was reportedly negative. Byhistory the patient did not notice swelling in the lower extremities. She on and off has had right ankle swelling in the past. The patient has menorrhagia with secondary anemia with recent IUD placement. She underwent yesterday 07/23/2022 bilateral pulmonary embolectomies with cavogram as well as pulmonary angiograms. Breathing improved significantly after the procedure. The patient tells me that she is slightly more short of breath today. The patient remains on heparin drip.Review of systems: No recent weight change fever night sweats. No major headaches or visual changes or sinus congestion. The patient denies any heartburn diarrhea constipation or urinary symptoms. Right intermittent ankle swelling reported. No easy bruisability. The patient has not experience shortness of breath before this episode. No chest pains or palpitation. Past medical history: Sleep apnea, morbid obesity, prediabetes, menorrhagia withsecondary anemia. Past surgical history: C-sections x2, laparotomy following a traumatic splenic injury with ability to suture the spleen at the age of 6. Hysteroscopy IUD placement. Social history: The patient has been a smoker for the last 20 years. The first 10 years she averaged 1 pack a day. After that half a pack a day and currently she is thinking of quitting smoking. No significant alcohol intake or recreational drugs. Family history: Negative for thromboembolic events. Diabetes and hypertension in the patient's father and cervical cancer in the patient's mother. Current medications: Bupropion 100 mg p.o. 3 times daily, heparin drip as directed, melatonin 3 mg p.o. at bedtime, nicotine patch 14 mg daily as needed, MiraLAX 17 g p.o. daily as needed. Drug allergy: None known. Physical examination;Vital signs temperature 36.5 pulse 80 respiration 26 blood pressure 128/61 weight 155 kg height 5 feet 7 inches BMI 53.5 O2 saturation 92%.The patient is alert oriented not in distress quite pleasant.Head and neck: Equal pupils no scleral discoloration no oral lesions no gross cervical or supraclavicular lymphadenopathy or distended neck veins or thyromegaly.No axillary lymphadenopathy bilaterally.Breasts: No gross suspicious masses. The patient has not had her baseline mammogram as of yet.Chest rather clear and resonant with decreased breath sounds universally.Heart: Distant heart sounds regular rhythm.Abdomen: Fatty abdomen difficult to evaluate for organomegaly. Midline surgicalscar noted and suprapubic one. Peristalsis minimal. No tenderness on palpation.Musculoskeletal: No gross ecchymosis. No calf induration tenderness or lower extremity edema Lab: Admission hemogram showed WBC count of 8.9 with normal differential hemoglobin down to 7.1 hematocrit 26.3 MCV low at 74 MCH 19.8 and platelet [id number]. RBC morphology showed few poikilocytosis slight anisocytosis and few microcytosis and ovalocytosis. Sodium 138 potassium 3.5 chloride 102 CO2 25 glucose 114 BUN 9 creatinine 0.9 total protein 6.5 albumin 3.7 calcium 8.5 totalbilirubin 0.5 SGOT 16 SGPT 17 alkaline phosphatase 78) natruretic peptide elevated at 2480 troponin less than 0.012. PT 14.4 INR 1.3 PTT 34. Qualitativeserum hCG negative. Chest x-ray reported no radiographic evidence of acute cardiopulmonary disease. Repeated CT of the chest abdomen and pelvis reported bilateral pulmonary emboli the location of some of these emboli along the jaramillo of the pulmonary arteries suggesting longstanding process. There are patchy opacities in the right upper lung consistent with pneumonia. Possible small bilateral nonobstructing nephrolithiasis. Urinalysis showed 150 blood 8 urobilinogen 0-3 RBC 0-3 WBC moderate bacteria and amorphous. Echocardiogram revealed normal left ventricular systolic function. Dilated right ventricle with mildly reduced right ventricle systolic function. Insufficient tricuspid regurgitation jet to estimate for pulmonary artery pressure. Impression: The patient sustained extensive pulmonary embolization at the background of morbid obesity. She is currently on heparin drip. There is stillconcern about the possibility of hypercoagulable state. I discussed that with the patient. Recommendation currently for at least 6 to 12 months of anticoagulation therapy. Also the patient can have thrombophilia panel done under the care of her PCP or should he choose to refer the patient to an outpatient pastry baker. In the event that the patient has a significant coagulation factor then she will need to be on long-term anticoagulation. Moreover the reported thyroid and lung nodules in the outside CT chest study were not appreciated on the study done on 07/23/2022. This issue will need to be also addressed on outpatient basis. The patient has severe microcytic anemia. The anemia may worsen with the initiation of anticoagulation. The patient will need iron replacement therapy. She has not had iron pills in the past. at 1342 RPT #:[id number] OF REPORTVNIroigfghjrns6065-38-87O21:17:00Z.PDOC2 [id number] for patient ppatMTDLAYSBUOBREJ5983-44-28U73:42:54 [facility] 10:16:00 [id number] GLBctpiscxWYD8zLRap67Z+cnx2wQ hjB66FuNtUwW8dlM5r6qJXt3MFK9876-78-17G53:16:13713 0-[address] [address] PATIENT NAME: MONY JONES ADMIT DATE: 07/22/22ACCOUNT NO: [id number] ROOM NO: Z.346 AGE: 36 REPORT TYPE: ECHOCARDIOGRAM SEX: F ADMITTING PHYSICIAN:Oksana Angeles MD ATTENDING PHYSICIAN:Oksana Angeles MD *[place] [phone] Transthoracic Echocardiogram Patient: Mony JonesStudy Date: 07/23/2022 BP: 115 / 76 [id number] 1985 Age: 36 Height: 67 in / 170.2 cmAccession#: [id number] Gender: F Weight: 750.2 lb / 341 kgBMI/BSA: 117.7 kg/m 2 / 4.28 m 2 *Ordering Physician: * David Ohara *Interpreting Physician: * Merary Hadley MD*Weight Control Engineer: * Keely Pennington RDCS, RCS Indications: SOB,PE. Study data: Transthoracic echocardiogram. Procedure: Transthoracicechocardiography was performed. Images were obtained using a [employer] cardiacultrasound machine. Image quality was adequate. M-mode, complete 2D,complete spectral Doppler, and color Doppler. Location: Bedside.Patient status: Inpatient. Patient room number: 346. Study status:Stat. Findings Left ventricle: The cavity size is normal. Wall thickness is normal.Systolic function is normal. The estimated ejection fraction is 55-59%.Wall motion is normal; there are no regional wall motion abnormalities.Left ventricular diastolic function parameters are normal. PATIENT NAME: MONY JONES Right ventricle: Well visualized. The cavity size is moderatelydilated. Wall thickness is normal. Systolic function is mildly reduced.Left atrium: The atrium is normal in size.Right atrium: The atrium is normal in size.Aorta: The aorta is well visualized.Aortic valve: The annulus is normal-sized. The valve is probablytrileaflet. There is no evidence of stenosis. There is no significantregurgitation.Mitral valve: The annulus is normal-sized. The leaflets are normalthickness. There is no evidence of stenosis. There is noregurgitation.Tricuspid valve: The annulus is normal-sized. There is no significantregurgitation.Pulmonic valve: Well visualized. The annulus is normal-sized. There isno significant regurgitation. Measurements Left ventricle Value Ref CHERI, LAX 4.3 cm 3.8 - 5.2 ESD, LAX 3.0 cm 2.2 - 3.5 ESD/bsa, LAX 0.7 cm/m 2 1.3 - 2.1 FS, LAX 31 % 27 - 45 PW, ED 1.2 cm 0.6 - 0.9 PW, ES 1.5 cm --------- IVS/PW, ED 1.08 --------- EF 58 % 54 - 74 LVOT Value Ref Peak bruce, S 1.38 m/sec --------- Mean bruce, S 0.84 m/sec --------- VTI, S 25.1 cm --------- Peak grad, S 8 mm Hg --------- Mean grad, S 3 mm Hg --------- Ventricular septum Value Ref IVS, ED 1.3 cm 0.6 - 0.9 IVS, ES 1.6 cm --------- Right ventricle Value Ref CHERI, LAX 3.6 cm --------- RVOT Value Ref Peak v, S 0.68 m/sec --------- Peak grad, S 2 mm Hg --------- Left atrium Value Ref AP dim, ES MM 4.5 cm 2.7 - 3.8 LA/Ao root ratio, MM 1.52 --------- Aortic valve Value Ref Leaflet sep, MM 1.61 cm --------- Peak v, S 1.65 m/sec --------- PATIENT NAME: MONY JONES ELPIDIO Mean v, S 1.12 m/sec --------- VTI, S 32.6 cm --------- Mean grad, S 5.8 mm Hg --------- Peak grad, S 10.9 mm Hg --------- LVOT/AV, VTI ratio 0.77 --------- LVOT/AV, Vpeak ratio 0.83 --------- Mitral valve Value Ref Peak E 0.94 m/sec --------- Peak A 0.6 m/sec --------- Mean v, D 0.62 m/sec --------- VTI leaflet coapt 25.8 cm --------- Decel time 187 ms --------- PHT 63 ms --------- Mean grad, D 1.8 mm Hg --------- Peak grad, D 4.0 mm Hg --------- Peak E/A ratio 1.56 --------- MVA, PHT 3.5 cm 2 --------- MR peak v 1.36 m/sec --------- Pulmonic valve Value Ref NM v, ED 0.83 m/sec --------- Tricuspid valve Value Ref TR peak v 0.95 m/sec <=2.8 Peak RV-RA grad, S 4 mm Hg --------- Aortic root Value Ref Root diam, ED MM 2.94 cm --------- Conclusions Summary: 1. Left ventricle: The cavity size is normal. Wall thickness is normal. Systolic function is normal. The estimated ejection fraction is 55-59%. Wall motion is normal; there are no regional wall motion abnormalities. Left ventricular diastolic function parameters are normal.2. Right ventricle: The cavity size is moderately dilated. Wall thickness is normal. Systolic function is mildly reduced. Impressions: 1. Normal left ventricle systolicfunction.2. Dilated right ventricle with mildly reduced right ventricle systolic function. Insufficient tricuspid regurgitation jet to estimate pulmonary artery presure. Recommendations: continue medical mgmt. Prepared andelectronically signed by PATIENT NAME: MONY JONES ELPIDIO Merary Hadley MD07/24/2022 10:16 at 1016 PATIENT NAME: KARENMONY ELPIDIO :16:0 0Z.[id number] for patient zcokDZCSJXMLILINUQ9057-22-65M04:17:34 [facility] 2022-07-24 06:08:00 [id number] oFGWQ0jz3oZKJ454PFYFdt56PrpDQ n4jEBr7Ldoxgzv0Xh1xTkPKdmN89239-22-12X01:08:00 [facility] ([facility])Hospitalist Progress NoteREPORT#:[id number] REPORT STATUS: SignedDATE:07/24/22 TIME: 06 PATIENT: MONY JONES UNIT #: [id number]#: [id number] [facility] [birth year] AGE: 36 SEX: F ATTEND: Oksana Angeles [facility] AUTHOR: Roberto Sy MD R1 * ALL edits or amendments must be made on the electronic/computer document * Roberto Sy 07/24/22 0608:SubjectiveChief complaint:SOB Transferred here for bilateral PEHPI:VSS stable within the last 24 hrs. Pt underwent thrombectomy procedure yesterday. No acute event overnight. Denies fever. SOB with walking to restroom. Review of SystemsConstitutional:Denies: chills, fatigue, fever. Skin:Denies: abrasion, bruising. Allergy/Immun:Denies: rhinorrhea, sneezing. Eyes:Denies: redness, discharge. ENT:Denies: throat pain. Respiratory:Denies: SOB, wheezing. Cardiovascular:Denies: chest pain. GI:Denies: abdominal pain, constipation, diarrhea. :Denies: dysuria, flank pain. Neuro:Denies: confusion. Psych:Denies: anxiety. Objective GeneralVS/I O:Vital Signs: Date Time Temp Pulse Resp B/P B/P Pulse O2 O2 Flow FiO2 Mean Ox Delivery Rate 07/24 0911 Nasal 4 cannula 07/24 0723 36.6 07/24 0434 36.7 07/24 0300 79 13 93 07/24 0114 88 29 135/62 86 89 07/24 0026 83 22 92 07/23 2356 36.9 07/23 2300 83 21 98 07/23 2200 87 26 92 07/23 2015 Nasal 3 cannula 07/23 2000 91 25 149/67 97 95 07/23 1959 36.9 07/23 1900 91 31 151/71 101 93 07/23 1700 84 26 146/65 94 97 07/23 1600 82 19 145/66 95 95 07/23 1536 36.5 07/23 1500 84 25 130/60 87 96 07/23 1422 78 121/58 84 95 24 hour I O ending at 0700: 07/24 0700 07/23 190 Intake Total Output Total Balance Number 2 Bowel Movements Number Voids 3 PATIENT WEIGHT: Weight (lb): Weight (oz): Weight (kg): 155.000 Physical ExamGeneral appearance: alert, awake, orientedHead/Eyes: atraumatic, normocephalicNeck: full range of motionCardiovascular: regular rate rhythmRespiratory: on oxygen, aerating well, no distressAbdomen: obese, non-tender, softExtremities: moves allNeuro/JAVA FLEX DEVELOPER: alert, oriented X 3, normal speechSkin: dryPsychiatry: normal affect, normal mood ResultsFindings/Data:Laboratory Tests 07/24 415 Chemistry Sodium (137 - 145 MMOL/L) 136 L Potassium (3.5 - 5.1 MMOL/L) 3.6 Chloride (98 - 107 MMOL/L) 102 Carbon Dioxide (22 - 30 MMOL/L) 24 Anion Gap (14 - 24 MMOL/L) 14 BUN (7 - 17 MG/DL) 8 Creatinine (0.52 - 1.04 MG/DL) 0.80 Glomerular Filtr Rate > 60 Glucose (74 - 106 MG/DL) 154 H Calcium (8.4 - 10.2 MG/DL) 8.2 L Laboratory Tests 07/24 2117 1310 1042 Coagulation APTT (26.2 - 35.4 SECONDS) 20.9 L 35.8 H > 400.0 *H Activated Coag Time (74 - 137 SEC) 245 H Laboratory Tests 07/24 415 Hematology WBC (3.8 - 9.8 K/MM3) 7.9 RBC (3.58 - 4.97 M/MM3) 3.78 Hgb (11.2 - 14.9 G/DL) 7.5 L Hct (33.2 - 43.5 %) 28.0 L MCV (80.7 - 99.1 fL) 74 L MCH (27.0 - 34.1 pg) 19.8 L MCHC (32.2 - 35.7 %) 26.8 L RDW (12.1 - 15.2 %) 19.0 H Plt Count (129 - 368 K/MM3) 162 MPV (7.4 - 10.4 fl) 9.7 Neut % (Auto) (43 - 75 %) 74.8 Lymph % (Auto) (14 - 44 %) 15.5 [place] % (Auto) (4 - 13 %) 6.0 Eos % (Auto) (0 - 6 %) 2.1 Baso % (Auto) (0 - 2 %) 0.3 Neut # (Auto) (2.0 - 7.6 K/mm3) 5.94 Lymph # (Auto) (1.0 - 3.8 K/mm3) 1.23 [place] # (Auto) (0.1 - 0.8 K/mm3) 0.48 Eos # (Auto) (0.0 - 0.2 K/mm3) 0.17 Baso # (Auto) (0.0 - 0.2 K/mm3) 0.02 Immature Gran % (0.0 - 2.0 %) 1.3 Nucleated RBC % (0 - 1.0 %) 0.5 Nucleated RBCs # (Man) (0.0 - 0.1 K/mm3) 0.04 Laboratory Tests 07/23 1840 Urines Urine Color (YELLOW) YELLOW Urine Appearance (CLEAR) very cloudy Urine pH (5.0 - 9.0) 5.0 Ur Specific [place] (1.003 - 1.030) 1.025 Urine Protein (NEGATIVE MG/DL) 15 Urine Glucose (UA) (NORMAL MG/DL) NORMAL Urine Ketones (NEGATIVE MG/DL) NEGATIVE Urine Blood (NEGATIVE Josh/mm3) 150 H Urine Nitrite (NEGATIVE) NEGATIVE Urine Bilirubin (NEGATIVE MG/DL) NEGATIVE Urine Urobilinogen (NORMAL MG/DL) 8 H Ur Leukocyte Esterase (NEGATIVE /mm3) NEGATIVE Urine RBC (0 - 3 RBC/HPF) 0-3 Urine WBC (0 - 5 WBC/HPF) 0-3 Ur Epithelial Cells (FEW EPI/HPF) RARE Amorphous Sediment (NONE) MODERATE H Urine Bacteria (NONE) MODERATE H Urine Culture Screen (Culture Chk Criteria) NO, WBC <10 Radiology data:Recent Impressions:CAT SCAN - CT ABD PELVIS W/CONT 07/23 1745 Report Impression - Status: SIGNED Entered: 07/23/20222016 IMPRESSION: There are bilateral pulmonary emboli. The location of some of thepulmonary emboli along the jaramillo of the pulmonary arteries suggests along-standing process. There are patchy opacities in the right upper lung, consistent withpneumonia. Possible small bilateral nonobstructing nephrolithiasis, although thisis difficult to determine with certainty, as no precontrast imageswere performed. Impression By: Zara Pride MDCAT SCAN - CT CHEST W/CONTRAST 07/23 1745 Report Impression - Status: SIGNED Entered: 07/23/20222016 IMPRESSION: There are bilateral pulmonary emboli. The location of some of thepulmonary emboli along the jaramillo of the pulmonary arteries suggests along-standing process. There are patchy opacities in the right upper lung, consistent withpneumonia. Possible small bilateral nonobstructing nephrolithiasis, although thisis difficult to determine with certainty, as no precontrast imageswere performed. Impression By: Zara Pride MD Diagnosis, Assessment Plan Free Text DxA P NotesFree text DxA P notes:#Bilateral pulmonary embolism - Found via CT at [facility] with some reflux of contrast into the IVC suggestive of possible right heart strain. The CT also shows a lung nodule, and thyroid nodule.- Undergo PE thrombectomy via Dr. Dooley. She also recommends that pt needs to beon anticoagulation for at least 6 months - NPO. Oxygen per protocol.- IV Heparin. - 07/23: PTT > 400 (possibly a lab error); 07/24: PTT = 20.9 - Echo cardiogram.- 07/23 1745: Ct test bilateral pulmonary emboli. The location of some of thepulmonary emboli along the jaramillo of the pulmonary arteries suggests along-standing process.- Dr Dooley is notified, she things that this is a new problem. She plans to do another thrombectomy. #Right heart strain- f/u TTE, consider RHC, CT C/A/P with contrast to exclude malignancy given pre-cancerous uterine polyps (per cardiology, Dr Merary Hadley) #Precancerous uterine polyps- Underwent D C before- Order CT chest, abdomen, pelvis with contrast #Anemia Chronic - 07/24: Hgb = 7.5 (trending down from 8); Hct = 28 (trending down from 29.7)- Likely secondary to menorrhagia in the past. - Type and screen. Transfuse if necessary. - Pt reports no bleeding. - Pending FOBT. #PNA- 07/23 CT Chest: patchy opacities in the right upper lung, consistent withpneumonia.- No fever within the last 24 hrs. - BP normal (121-151/58-71 #Long nudole- Measured 3mm in left lobe of the lung. - F/U with pulmonary outpatient for imaging, and further management. #Smoking- Nicotine patch. Encouraged smoking cessation. #Thyroid nodule- Measured 2.5 cm - Pending TSH, T4. - F/U outatient. DVT: Heparin.Diet: NPO Quality: Gen Med Crit Care VTE ProphylaxisVTE prophylaxis initiated: yes (Bilateral PE) Current MedicationsCurrent medication review:I attest that the foregoing medication list in the medical record is true, accurate, and complete to the best of my knowledge. Oksana Angeles 07/24/22 1654:Attestations Teaching Physician AttestationF/U visit w/ resident:I saw the patient with the resident and . . . agree with the resident's findings and plan. agree with the resident's findings and plan EXCEPT: ==Acute hypoxic respiratory failure sec to bilateral PE at 1340 at 2041 RPT #:[id number] OF REPORTPRProgress dlro6112-43-92A53:08:00Z.[id number] able for patient doddQSYULXSDWINISS5974-94-19T24:41:14 [facility] 2022-07-23 17:24:00 [id number] p5yllggLUjLTN8Q8zN/b2CiYg4WIV UXUdalgPnRMWAV7W9cXjRscgm3Q3844-31-48N71:24:00 [facility] ([facility])Hospitalist History PhysicalREPORT#:[id number] REPORT STATUS: SignedDATE:07/23/22 TIME: 1723 PATIENT: MONY JONES UNIT #: [id number]#: [id number] [facility] [birth year] AGE: 36 SEX: F ATTEND: Oksana Angeles [facility] AUTHOR: Roberto Sy MD R1 * ALL edits or amendments must be made on the electronic/computer document * Roberto Sy 07/23/22 172:History of Present Illness HPIChief complaint:SOB Transferred here for bilateral PEHPI:Pt is a 36 F with a PMHX of Sleep Apnea, Prediabetes, and Anemia due to Menorrhagia, coming in for SOB for 2 weeks transferred from another hospital. Pt reports that her SOB started on Jul 07. She went to the ED for SOB, and she was told she had bronchitis, and went home. She then went to her PCP, who told her go to the ED for additional evaluation. She then went to [facility], and it was there that CT found bilateral PEs, with some reflux of contrast into the IVC suggestive of possible right heart strain, a lung nodule, and thyroid nodule. Doppler of LE was also done, and it was neg. CXR in outside facility showed some patchy opacities. She was given an initial bolus of heparin IV, and transferred here for evaluation for possible surgical management. Pt reports that she has never had a PE before, or DVT. She hasn't had palpitations or chest pain. She only reports SOB over the last couple of days, and chest pressure that was worse with exertion. Regarding her anemia, and menorrhagia,she had a D/C, and iud put in about 1 month ago to regulate her periods, as she reports she was always having some bleeding. Her bleeding has since resolved. She doesn't have any currently. She was also supposed to have another sleep study on the 15 but missed it due tofeeling unwell. Doesn't use CPAP at home. Social: Quitting smoking Smoked about 20 years. About 10 years of 1 pack a day. The rest varried. No alcohol, drugs. Meds: Buproprion 300mg. Allergies: NKDA. 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 FHX:Dad DM, HTN. Mom Cervical Cancer. [phone]. 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 Mom Cervical Cancer Social HistoryAlcohol use: Denies EtOH useDrug use: Denies recreational drugsSmoking status for patients 13 years old or older: Current some day smokerDate last smoked: 07/22/22Packs per day: 1Years smoked: 20 Medication/Allergy-Vaccine HxAllergies:Coded Allergies:No Known Allergies (06/24/22) Review of SystemsConstitutional:Denies: chills, fatigue, fever. Skin:Denies: abrasion, bruising. Allergy/Immun:Denies: rhinorrhea, sneezing. Eyes:Denies: redness, discharge. ENT:Denies: throat pain. Respiratory:Denies: SOB, wheezing. Cardiovascular:Denies: chest pain. GI:Denies: abdominal pain. :Denies: dysuria, flank pain. Musculoskeletal:Denies: joint pain, joint swelling. Neuro:Denies: bladder dysfunction, bowel dysfunction, change in LOC. Psych:Denies: anxiety, auditory hallucination, change in mental status. Physical ExamVS/I O:Vital Signs Date Temp Pulse Resp B/P B/P Mean Pulse Ox FiO2 07/22-07/23 36.5-36.9 76-95 - 115-134/65-87 85-101 93-96 Last Documented: Result Date Time Temp 36.5 07/23 1536 Pulse Ox 95 07/23 0742 O2 Delivery Room air 07/23 0742 B/P 115/76 07/23 0700 B/P Mean 89 07/23 0700 Pulse 78 07/23 0700 Resp 22 07/23 0700 O2 Flow Rate 3 07/23 0000 24 hour I O ending at 0700: 07/23 0707/22 1900 Intake Total Output Total Balance Number Voids 1 Patient 155 kg Weight Weight Stated/Reported Measurement Method Patient Weight and BMI Weight (kg): 155.000 BMI: 53.5 Head/Eyes: atraumatic, normocephalicNeck: full range of motionCardiovascular: regular rate rhythmRespiratory: on oxygen, aerating well, no distressAbdomen: obese, non-tender, softExtremities: moves allNeuro/JAVA FLEX DEVELOPER: alert, oriented X 3, normal speechSkin: dryPsychiatry: normal affect, normal mood Diagnosis, Assessment PlanFree Text A P: Bilateral PEPending Dr. Dooley consultation. NPO. Oxygen per protocol.Continue IV Heparin. Pending Echo cardiogram. Anemia Chronic likely secondary to menorrhagia in past treated. Type and screen.Transfuse if necessary. Pt reports no bleeding. Pending FOBT. 3mm lung nodule in left lobe of the lung. F/U with pulmonary outpatient for imaging, and further management. Smoker: Nicotine patch. Encouraged smoking cessation. 2.5 cm thyroid nodule. Pending TSH, T4. F/U outatient. DVT: Heparin.Diet: NPO Quality: Gen Med Crit Care VTE ProphylaxisVTE prophylaxis initiated: yes (Bilateral PE) Current MedicationsCurrent medication review:I attest that the foregoing medication list in the medical record is true, accurate, and complete to the best of my knowledge. Oksana Angeles 07/23/22 6636:Attestations Teaching Physician Fobhzqftixh8xp visit w/o resident:I performed a history and physical examination of the patient and discussed withthe resident. I have reviewed the resident's note and . . . agree with the findings and plan as documented in the resident's note. agree with the findings and plan as documented in the resident's note EXCEPT: ==Acute hypoxic respiratory failure sec to bilateral PE==Pt seen after thrombectomy done by dr Dooley today. went well. specimen sent topathology. continue anticoagulation. ==pt says her sob has improved slightly as compared to before the procedure==appreciate cards recs. pending echo. -consider CT C/A/P with contrast to exclude malignancy given pre-cancerous uterin polyps at 1729 at 2041 [facility] #:[id number] OF REPORTHPHistory and physical qalrpgwwank8507-24-21Z28:24:00Z.[id number] AVAvailable for patient sjjuLIRBXNWPECUQCN4998-28-82Q38:29:42 [facility] 2022-07-23 12:43:00 [id number] h7gPuSPq+Ug0PhY4hPE6OuZww2QYT m1L1qNyPqZ+6OofHrCCrY3pRZMD6985-28-46W68:43:00 [facility]Cardiology ConsultationREPORT#:[id number] REPORT STATUS: SignedDATE:07/23/22 TIME: 1243 PATIENT: MONY JONES UNIT #: [id number]#: [id number] [facility] [birth year] AGE: 36 SEX: F ATTEND: Oksana Angeles [facility] AUTHOR: Merary Hadley MD * ALL edits or amendments must be made on the electronic/computer document * History of Present Illness HPIRequesting Clinician: Dr. Mata for consult:RALPH Ly complaint:SOBHPI:36 year old female smoker with history of LOLITA, anemia from menhorragia,and recent D/C for uterine polyps who was found to have BL PE with evidence of rightheart strain, now s/p mechanical thrombectomy patient feeling better. She statesthat on07/07 she started to feel acute onset SOB so she went to ER where she was diagnosed with bronchitis and treated with prednisone and inhalers. She did not improve so she went to ER again yesterday and was diagnosed with PE. On Jun 25 she had a D/C for uterine polyps, she was told that the path was pre-cancerous. At the time of the procedure she had a kylie IUD inserted. She denies any long trips or prolonged period of sedentary activity that would predispose herto DVT. She does think that she may have had some mild CORRALES for thelast few months. History - Adult longitudinalPast medical history:Reports: Anemia. Past surgical history:Reports: , Splenectomy. Smoking status for patients 13 years old or older: Current some day smokerDate last smoked: 07/22/22Packs per day: 1Years smoked: 20Allergies:Coded Allergies:No Known Allergies (06/24/22) Review of SystemsConstitutional:recent wt loss (10 lb weight loss). Denies: chills, fatigue, fever, generalizedweakness, lethargy, malaise. All systems rev neg: except as marked Objective GeneralVS/I O:Vital Signs: Date Time Temp Pulse Resp B/P B/P Pulse O2 O2 Flow FiO2 Mean Ox Delivery Rate 07/23 0742 95 Room air 07/23 0724 36.7 07/23 0700 78 22 115/76 89 95 07/23 0432 36.8 16 07/23 0400 76 19 127/69 91 93 07/23 0300 78 21 128/68 91 96 07/23 0200 85 132/79 90 95 07/23 0100 81 25 134/74 97 07/23 0015 36.5 87 16 95 Nasal cannula 07/23 0010 95 28 129/87 101 07/23 0000 Nasal 3 cannula 07/22 2333 36.8 82 18 117/70 85 96 Nasal 3 cannula 07/22 2200 36.9 80 22 125/65 85 95 Nasal 3 cannula 24 hour I O ending at 0700: 07/23 0700 07/22 1900 Intake Total Output Total Balance Number Voids 1 Patient 155 kg Weight Weight Stated/Reported Measurement Method PATIENT WEIGHT: Weight (lb): Weight (oz): Weight (kg): 155.000 Physical ExamGeneral appearance: alert, no acute distress Diagnosis, Assessment PlanProblem List/A P: 1. Pulmonary embolism 2. Anemia 3. Smoker Free Text DxA P NotesFree Text DxA P Notes:36 year old female smoker with history of anemia, lolita, and recent D/C of pre-cancerous uterine polyps found to have BL PE with RH strain s/p mechanical aspiration #Right heart strain-f/u TTE-will reasses Right heart pressures on echo-may benefit from RHC before discharge for potential PH therapy #BL PE-per patient no DVT found on LE ultrasound-consider CT C/A/P with contrast to exclude malignancy given pre-cancerous uterin polyps-agree with anticoagulation at 1256 RPT #:[id number] OF REPORTYXKhgseaavnjks6569-36-07M18:43:00Z.PDOC2 [id number] for patient vyxuUKUAODZXOXTODL1684-66-37U80:56:23 [facility] 2022-07-23 11:43:00 [id number] vFoXJ4rthNu+tvyHU6snxZbfpVPQN 9zBv+sXi+ePpedusZyToU/xQ6pX8595-68-88I49:43:00 [facility] [facility] Surgery Consult NoteREPORT#:[id number] REPORT STATUS: SignedDATE:07/23/22 TIME: 1143 PATIENT: MONY JONES UNIT #: [id number]#: [id number] ROOM/BED: [facility]-ADOB: [birth year] AGE: 36 SEX: F ATTEND: Oksana Angeles [facility] AUTHOR: Leanna Dooley MD * ALL edits or amendments must be made on the electronic/computer document * History of Present IllnessHPI:36 year old female presented with shortness of breath and hypoxia at OSH and found to have bilataral distal pulmonary emboli with RV strain. She had lower extremity venous duplex and it ws negative for DVT at OSH. She was started on a heparin drip and transferred here. She is a prior smoker, 1 ppd X 10 years. She has had a D and C and IUD placed a couple of weeks ago and has had shortness of breath that started thereafter. She denies any active chest pain. She is ambulatory at home and denies any leg sweling. She denies any personal or familyhistory of hypercoagulable disorder. History - Adult longitudinalPast medical history:Reports: Anemia. Past surgical history:Reports: , Splenectomy. Smoking status for patients 13 years old or older: Current some day smokerDate last smoked: 07/22/22Packs per day: 1Years smoked: 20Allergies:Coded Allergies:No Known Allergies (06/24/22) Review of SystemsConstitutional:Denies: chills, fatigue. Skin:Denies: abrasion. Allergy/Immun:Denies: allergic reaction. Eyes:Denies: redness, discharge. ENT:Denies: ear drainage, ear ringing. Respiratory:Reports: CORRALES (dyspnea on exertion), SOB. Cardiovascular:Denies: chest pain. GI:Denies: abdominal pain. :Denies: dysuria. Musculoskeletal:Denies: arthritis, extremity swelling. Heme:Denies: adenopathy. Endocrine:Denies: cold intolerance, heat intolerance. Neuro:Denies: bladder dysfunction. Psych:Denies: agitation. ObjectiveVS/I O:Last Documented: Result Date Time Pulse Ox 95 07/23 742 O2 Delivery Room air 07/23 742 Temp 98.1 07/23 0724 B/P 115/76 07/23 0700 B/P Mean 89 07/23 07 Pulse 78 07/23 07 Resp 22 07/23 07 O2 Flow Rate 3 07/23 0000 24 hour I O ending at 0700: 07/23 0700 07/22 1900 Intake Total Output Total Balance Number Voids 1 Patient 155 kg Weight Weight Stated/Reported Measurement Method PATIENT WEIGHT: Weight (lb): Weight (oz): Weight (kg): 155.000 General appearance: alert, no acute distressHEENT: mucosal membranes moistNeck: full range of motion, supple/no meningismusCardiovascular: BP/pulses equal bilat.Respiratory: shortness of breath, symmetric expansionAbdomen: softExtremities: dry, moves allPulse assess: Vascular pulse assess: Palpated: R radial, L radial. Neuro/JAVA FLEX DEVELOPER: alert, oriented X 3, no motor deficits, no sensory deficitsSkin: dry Diagnosis, Assessment PlanFree Text A P:36 year old female with bilateral submassive pulmonary embolism, provoked in thesetting of recent D and C with IUD placementcontinue anticoagulation for at least 6 monthsPE thrombectomy for submassive PE with elevated BNPwill need compression stockings- can be arranged outpatient at 1153 RPT #:[id number] OF REPORTBSIohjfpefujae5936-27-71R02:43:00Z.PDOC2 [id number] for patient yljoDHHFBSRMFYZBRL5325-27-82X80:53:48 [facility] 11:35:00 [id number] Z/l/1FAeq2YEW3gZ0bLTr+6+2ugIM L9AgtM4lvz02Maccrf/feZvOZ+42919-45-59L23:35:28167 9-0065 [place] [id number] PATIENT NAME: MONY JONES ADMIT DATE: 07/22/22ACCOUNT NO: [id number] ROOM NO: Z.437 AGE: 36 REPORT TYPE: OPERATIVE REPORT SEX: F ADMITTING PHYSICIAN:Troy Louis MD ATTENDING PHYSICIAN:Troy Louis MD OPERATION DATE: 07/23/2022 PREOPERATIVE DIAGNOSIS: Bilateral submassive pulmonary embolism. POSTOPERATIVE DIAGNOSIS: Bilateral submassive pulmonary embolism. PROCEDURE: Bilateral pulmonary embolectomies with cavogram as well as pulmonaryangiograms. OPERATING SURGEON: Leanna Dooley MD OUTBOARD SYSTEM OPERATOR: None. COMPLICATIONS: None. ESTIMATED BLOOD LOSS: Less than 25 mL ANESTHESIA: Local and moderate sedation. DESCRIPTION OF PROCEDURE: The patient was brought into the angiography suite. She was placed in the supine position. She was placed under moderate sedation and continued to be monitored throughout the case with continuous pulse oximetryand monitoring of the vital signs. After adequate prep and drape under ultrasound guidance, the right common femoral vein was cannulated using a micropuncture needle. A Microwire was advanced. Micropuncture sheath was advanced over a J wire. A 6-Slovenian sheath was advanced. Systemic heparin was given. An ultrasound image was stored showing cannulation of the common femoralvein on the right. We used a Mcdonald and a Wholey wire to cannulate the rightpulmonary artery and cannulated the right lower lobe. An Amplatzer wire exchange was performed. We then sequentially dilated up the femoral vein. Skinnick had already been made and subcutaneous tissue was dilated and we advanced d87-Otdhnf and artery sheath. We then advanced a T20 FlowTriever and did multiple aspirations with a lot of chronic appearing crud. We then selectively cannulated with a Wholey wire and a Mcdonald in the right middle lobe as well as the right upper lobes and Amplatzer wire exchanges were performed and we did selective lobar thrombectomy of the right middle lobe and upper lobe and obtained what appeared to be a lot of chronic appearing crud and thrombus, but also suspicious for malignancy or suction D and C products. These were aspirated. Before we had started the pulmonary artery thrombectomy, we done a PA pressure with a systolic pressure in 66 with the pre-suction thrombectomy picture showing only part of the right lower lobe filling. Completion picture showed brisk filling of the right upper, middle and lower lobes with no residual PATIENT NAME: MONY JONES ELPIDIO thrombus seen. We obtained a post-thrombectomy pulmonary artery pressure with a10 mm drop in the systolic pressure with a mean drop of 5. Next, we selectivelycannulated the left lower lobe using Mcdonald and a Wholey wire and an Amplatzer wire exchange was performed. A T20 FlowTriever was advanced and a thrombectomy performed, which showed some chronic appearing crud and a white appearing thrombus and fibrinous appearing debris suctioned out. This was concerning for D and C suction thrombectomy products that the patient had about 2 weeks ago. All of this was sent for pathology. A completion picture showed brisk filling of the left upper lobe as well as the mid and lower lobes with no residual thrombus seen. Pulmonary artery pressures were similar on the left side with systolic in the 55 and drop in with 53. At this point, we removed thewires and FlowTriever and placed a hemostatic mattress stitch and retrieved a 24-Slovenian sheath and held direct manual pressure for 5 minutes. There was adequate hemostasis. All instrument, needle and sponge counts were correct at the end of the case. The patient tolerated the procedure well. Dictated By: Leanna Dooley MD Date Dictated: 07/23/2022 11:35:11Date Transcribed: 07/23/2022 12:03:49RM/LRSAshutosh #: [id number] ID: [id number] by Leanna Dooley MD On 08/06/2022 03:42:16 PM at 0342 PATIENT NAME: MONY JONES fojldw5959-11-71Y08:03:00Z.[id number] lable for patient owaoHSHYVJLEZTBZHS2759-19-54V73:42:55 [facility] 2022-07-23 07:49:00 [id number] +4TYCfbdhKvngBn/r4H2ceB22dSOZ Tm8oGMMy7hkX5zdDJ9SnYffVSog4573-80-43X60:49:00 [facility] ([facility])Hospitalist Progress NoteREPORT#:[id number] REPORT STATUS: SignedDATE:07/23/22 TIME: 748 PATIENT: MONY JONES UNIT #: [id number]#: [id number] [facility] AGE: 36 SEX: F ATTEND: Oksana Angeles [facility] AUTHOR: Roberto Sy MD R1 * ALL edits or amendments must be made on the electronic/computer document * Roberto Sy 07/23/22 0749:SubjectiveChief complaint:SOB Transferred here for bilateral PEHPI:VSS stable. Denies SOB, fever, chill, LE swelling. Compression stocking is on. Pt underwent thrombectomy procedure today. Review of SystemsConstitutional:Denies: chills, fatigue, fever. Skin:Denies: abrasion, bruising. Allergy/Immun:Denies: rhinorrhea, sneezing. Eyes:Denies: redness, discharge. ENT:Denies: throat pain. Respiratory:Denies: SOB, wheezing. Cardiovascular:Denies: chest pain, palpitations. GI:Denies: abdominal pain. :Denies: dysuria, flank pain. Neuro:Denies: bladder dysfunction, bowel dysfunction. Psych:Denies: anxiety, stress. Objective GeneralVS/I O:Vital Signs: Date Time Temp Pulse Resp B/P B/P Pulse O2 O2 Flow FiO2 Mean Ox Delivery Rate 07/23 1536 36.5 07/23 0742 95 Room air 07/23 0724 36.7 07/23 0700 78 22 115/76 89 95 07/23 0432 36.8 16 07/23 0400 76 19 127/69 91 93 07/23 0300 78 21 128/68 91 96 07/23 0200 85 132/79 90 95 07/23 0100 81 25 134/74 97 07/23 0015 36.5 87 16 95 Nasal cannula 07/23 0010 95 28 129/87 101 07/23 0000 Nasal 3 cannula 07/22 2333 36.8 82 18 117/70 85 96 Nasal 3 cannula 07/22 2200 36.9 80 22 125/65 85 95 Nasal 3 cannula 24 hour I O ending at 0700: 07/23 0700 07/22 1900 Intake Total Output Total Balance Number Voids 1 Patient 155 kg Weight Weight Stated/Reported Measurement Method PATIENT WEIGHT: Weight (lb): Weight (oz): Weight (kg): 155.000 Physical ExamHead/Eyes: atraumatic, normocephalicNeck: full range of motionCardiovascular: regular rate rhythmRespiratory: on oxygen, aerating well, no distressAbdomen: obese, non-tender, softExtremities: moves allNeuro/JAVA FLEX DEVELOPER: alert, oriented X 3, normal speechSkin: dryPsychiatry: normal affect, normal mood ResultsFindings/Data:Laboratory Tests 07/23 07/22 07/22 0418 2153 2153 Chemistry Sodium (137 - 145 MMOL/L) 137 138 Potassium (3.5 - 5.1 MMOL/L) 3.5 3.5 Chloride (98 - 107 MMOL/L) 104 102 Carbon Dioxide (22 - 30 MMOL/L) 25 25 Anion Gap (14 - 24 MMOL/L) 12 L 15 BUN (7 - 17 MG/DL) 9 9 Creatinine (0.52 - 1.04 MG/DL) 0.80 0.90 Glomerular Filtr Rate > 60 > 60 Glucose (74 - 106 MG/DL) 120 H 114 H Calcium (8.4 - 10.2 MG/DL) 8.5 8.5 Total Bilirubin (0.2 - 1.3 MG/DL) 0.5 AST (14 - 36 UNITS/L) 16 ALT (0 - 34 UNITS/L) 17 Total Alk Phosphatase (38 - 126 UNITS/L) 78 Troponin I (0.012 - 0.033 NG/ML) < 0.012 L NT-Pro-B Natriuret Pep (0 - 125 pg/mL) 2480.0 H Total Protein (6.3 - 8.2 G/DL) 6.5 Albumin (3.5 - 5.0 G/DL) 3.7 Serum , Qual (NEGATIVE) NEGATIVE Laboratory Tests 07/23 07/23 07/23 07/23 1310 1042 1009 0931 Coagulation APTT (26.2 - 35.4 SECONDS) > 400.0 *H Activated Coag Time (74 - 137 SEC) 245 H 209 H 221 H 07/22 2153 Coagulation INR (0.86 - 1.14) 1.3 H APTT (26.2 - 35.4 SECONDS) 34.0 PT Patient/Control Mix (9.4 - 12.7 SECONDS) 14.4 H Laboratory Tests 07/23 07/22 0418 2153 Hematology WBC (3.8 - 9.8 K/MM3) 10.3 H 8.9 RBC (3.58 - 4.97 M/MM3) 4.00 3.58 Hgb (11.2 - 14.9 G/DL) 8.0 L 7.1 L Hct (33.2 - 43.5 %) 29.7 L 26.3 L MCV (80.7 - 99.1 fL) 74 L 74 L MCH (27.0 - 34.1 pg) 20.0 L 19.8 L MCHC (32.2 - 35.7 %) 26.9 L 27.0 L RDW (12.1 - 15.2 %) 18.8 H 18.6 H Plt Count (129 - 368 K/MM3) 183 150 MPV (7.4 - 10.4 fl) 10.1 9.1 Neut % (Auto) (43 - 75 %) 70.5 67.7 Lymph % (Auto) (14 - 44 %) 20.4 22.8 [place] % (Auto) (4 - 13 %) 5.9 6.8 Eos % (Auto) (0 - 6 %) 1.9 1.6 Baso % (Auto) (0 - 2 %) 0.3 0.3 Neut # (Auto) (2.0 - 7.6 K/mm3) 7.23 6.05 Lymph # (Auto) (1.0 - 3.8 K/mm3) 2.09 2.04 [place] # (Auto) (0.1 - 0.8 K/mm3) 0.61 0.61 Eos # (Auto) (0.0 - 0.2 K/mm3) 0.20 0.14 Baso # (Auto) (0.0 - 0.2 K/mm3) 0.03 0.03 Immature Gran % (0.0 - 2.0 %) 1.0 0.8 Nucleated RBC % (0 - 1.0 %) 0.2 0.4 Nucleated RBCs # (Man) (0.0 - 0.1 K/mm3) 0.02 0.04 Platelet Estimate (ADEQUATE) ADEQUATE Plt Morphology Comment (NORMAL) NORMAL Poikilocytosis (NONE) FEW Anisocytosis (NONE) SLIGHT Microcytosis (NONE) FEW Ovalocytes (NONE) FEW Radiology data:Recent Impressions:RADIOLOGY - XR CHEST 1V 07/22 0409 Report Impression - Status: SIGNED Entered: 07/23/2022 0002 IMPRESSION: There is no radiographic evidence of acute cardiopulmonary disease. Impression By: Marta.PMT - Darron Pride MD Diagnosis, Assessment Plan Free Text DxA P NotesFree text DxA P notes:#Bilateral pulmonary embolism - Found via CT at [facility] with some reflux of contrast into the IVC suggestive of possible right heart strain. The CT also shows a lung nodule, and thyroid nodule.- Undergo PE thrombectomy via Dr. Dooley. He also recommneds that pt needs to be on anticoagulation for at least 6 months - NPO. Oxygen per protocol.- IV Heparin. - Echo cardiogram. #Precancerous uterine polyps- Underwent D C before- order CT chest, abdomen, pelvis with contrast #Anemia Chronic - 07/23: Hgb = 8 (trending up from 7.1); Hct = 29.7 (trending up from 26.3)- Likely secondary to menorrhagia in past treated. - Type and screen. Transfuse if necessary. - Pt reports no bleeding. - Pending FOBT. #Long nudole- Measured 3mm in left lobe of the lung. - F/U with pulmonary outpatient for imaging, and further management. #Smoking- Nicotine patch. Encouraged smoking cessation. #Thyroid nodule- Measured 2.5 cm - Pending TSH, T4. - F/U outatient. DVT: Heparin.Diet: NPO Quality: Gen Med Crit Care VTE ProphylaxisVTE prophylaxis initiated: yes (Bilateral PE) Current MedicationsCurrent medication review:I attest that the foregoing medication list in the medical record is true, accurate, and complete to the best of my knowledge. Oksana Angeles 07/23/22 1641:Attestations Teaching Physician AttestationF/U visit w/ resident:I saw the patient with the resident and . . . agree with the resident's findings and plan. agree with the resident's findings and plan EXCEPT: ==Acute hypoxic respiratory failure sec to bilateral PE==Pt seen after thrombectomy done by dr Dooley today. went well. specimen sent topathology. continue anticoagulation. ==pt says her sob has improved slightly as compared to before the procedure==appreciate cards recs. pending echo. -consider CT C/A/P with contrast to exclude malignancy given pre-cancerous uterin polyps at 1720 at 2041 RPT #:[id number] OF REPORTPRProgress txrj4539-64-37Q86:49:00Z.EEIE11504999-1239WFBnfol able for patient dzleQJPRUSWPYDMJOP6160-48-25I23:21:02 [facility] 2022-07-22 22:49:00 [id number] TmjxuA373up40r4EvM7II15fIY4u6 Pi5WWtH1xpoqGvUKwQPBDR3he9+4957-95-42M44:49:00 [facility] ([facility])Hospitalist History PhysicalREPORT#:[id number] REPORT STATUS: SignedDATE:07/22/22 TIME: 2248 PATIENT: MONY JONES UNIT #: [id number]#: [id number] ROOM/BED: [facility]-ADOB: [birth year] AGE: 36 SEX: F ATTEND: Oksana Angeles AUTHOR: Luc Niño MD R2 * ALL edits or amendments must be made on the electronic/computer document * Luc Niño 07/22/22 9669:History of Present Illness HPIChief complaint:SOB Transferred here for bilateral PEHPI:Pt is a 36 F with a PMHX of Sleep Apnea, Prediabetes, and Anemia due to Menorrhagia, coming in for SOB for 2 weeks transferred from another hospital. Pt reports that her SOB started on Jul 07. She went to the ED for SOB, and she was told she had bronchitis, and went home. She then went to her PCP, who told her go to the ED for additional evaluation. She then went to [facility], and it was there that CT found bilateral PEs, with some reflux of contrast into the IVC suggestive of possible right heart strain, a lung nodule, and thyroid nodule. Doppler of LE was also done, and it was neg. CXR in outside facility showed some patchy opacities. She was given an initial bolus of heparin IV, and transferred here for evaluation for possible surgical management. Pt reports that she has never had a PE before, or DVT. She hasn't had palpitations or chest pain. She only reports SOB over the last couple of days, and chest pressure that was worse with exertion. Regarding her anemia, and menorrhagia,she had a D/C, and iud put in about 1 month ago to regulate her periods, as she reports she was always having some bleeding. Her bleeding has since resolved. She doesn't have any currently. She was also supposed to have another sleep study on the 15 but missed it due tofeeling unwell. Doesn't use CPAP at home. Social: Quitting smoking Smoked about 20 years. About 10 years of 1 pack a day. The rest varried. No alcohol, drugs. Meds: Buproprion 300mg. Allergies: NKDA. 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 FHX:Dad DM, HTN. Mom Cervical Cancer. [phone]. History Social HistorySmoking status for patients 13 years old or older: Current some day smoker Medication/Allergy-Vaccine HxAllergies:Coded Allergies:No Known Allergies (06/24/22) Review of SystemsConstitutional:Denies: chills, fever. Skin:Denies: itching. Allergy/Immun:Denies: allergic reaction. Eyes:Denies: itching. Respiratory:Reports: CORRALES (dyspnea on exertion), SOB. Denies: hemoptysis, non productive cough, pleuritic pain, pneumonia, productive cough (sputum). Cardiovascular:Denies: chest pain, palpitations. GI:Denies: abdominal pain, nausea, vomiting. :Denies: dysuria, flank pain. Neuro:Denies: confusion, slurred speech, unable to speak. Psych:Denies: agitation. All systems rev neg: except as noted Physical ExamVS/I O:Vital Signs Date Temp Pulse Resp B/P B/P Mean Pulse Ox FiO2 07/22 98.5 80 22 125/65 85 95 Last Documented: Result Date Time Pulse Ox 95 07/22 2200 B/P 125/65 07/220 B/P Mean 85 07/220 O2 Delivery Nasal cannula 07/22 2200 O2 Flow Rate 3 07/22 2200 Temp 98.5 07/22 2200 Pulse 80 07/220 Resp 22 07/220 Patient Weight and BMI Weight (kg): 155.000 BMI: 53.5 General appearance: alert, awake, orientedHead/Eyes: atraumatic, normocephalicNeck: full range of motionCardiovascular: regular rate rhythmRespiratory: on oxygen, aerating well, no distressAbdomen: obese, non-tender, softExtremities: moves allNeuro/JAVA FLEX DEVELOPER: alert, oriented X 3, normal speechSkin: dryPsychiatry: normal affect, normal mood ResultsFindings/Data:Laboratory Tests: 07/22 07/22 2153 2153 Chemistry Sodium (137 - 145 MMOL/L) 138 Potassium (3.5 - 5.1 MMOL/L) 3.5 Chloride (98 - 107 MMOL/L) 102 Carbon Dioxide (22 - 30 MMOL/L) 25 Anion Gap (14 - 24 MMOL/L) 15 BUN (7 - 17 MG/DL) 9 Creatinine (0.52 - 1.04 MG/DL) 0.90 Glomerular Filtr Rate > 60 Glucose (74 - 106 MG/DL) 114 H Calcium (8.4 - 10.2 MG/DL) 8.5 Total Bilirubin (0.2 - 1.3 MG/DL) 0.5 AST (14 - 36 UNITS/L) 16 ALT (0 - 34 UNITS/L) 17 Total Alk Phosphatase (38 - 126 UNITS/L) 78 Troponin I (0.012 - 0.033 NG/ML) < 0.012 L NT-Pro-B Natriuret Pep (0 - 125 pg/mL) 2480.0 H Total Protein (6.3 - 8.2 G/DL) 6.5 Albumin (3.5 - 5.0 G/DL) 3.7 Serum , Qual (NEGATIVE) NEGATIVE Coagulation INR (0.86 - 1.14) 1.3 H APTT (26.2 - 35.4 SECONDS) 34.0 PT Patient/Control Mix (9.4 - 12.7 SECONDS) 14.4 H Hematology WBC (3.8 - 9.8 K/MM3) 8.9 RBC (3.58 - 4.97 M/MM3) 3.58 Hgb (11.2 - 14.9 G/DL) 7.1 L Hct (33.2 - 43.5 %) 26.3 L MCV (80.7 - 99.1 fL) 74 L MCH (27.0 - 34.1 pg) 19.8 L MCHC (32.2 - 35.7 %) 27.0 L RDW (12.1 - 15.2 %) 18.6 H Plt Count (129 - 368 K/MM3) 150 MPV (7.4 - 10.4 fl) 9.1 Neut % (Auto) (43 - 75 %) 67.7 Lymph % (Auto) (14 - 44 %) 22.8 [place] % (Auto) (4 - 13 %) 6.8 Eos % (Auto) (0 - 6 %) 1.6 Baso % (Auto) (0 - 2 %) 0.3 Neut # (Auto) (2.0 - 7.6 K/mm3) 6.05 Lymph # (Auto) (1.0 - 3.8 K/mm3) 2.04 [place] # (Auto) (0.1 - 0.8 K/mm3) 0.61 Eos # (Auto) (0.0 - 0.2 K/mm3) 0.14 Baso # (Auto) (0.0 - 0.2 K/mm3) 0.03 Immature Gran % (0.0 - 2.0 %) 0.8 Nucleated RBC % (0 - 1.0 %) 0.4 Nucleated RBCs # (Man) (0.0 - 0.1 K/mm3) 0.04 Platelet Estimate (ADEQUATE) ADEQUATE Plt Morphology Comment (NORMAL) NORMAL Poikilocytosis (NONE) FEW Anisocytosis (NONE) SLIGHT Microcytosis (NONE) FEW Ovalocytes (NONE) FEW Laboratory Tests 07/22/22 1053:[Embedded Image Not Available] Diagnosis, Assessment PlanProblem List/A P: 1. Pulmonary embolism 2. Anemia 3. Incidental lung nodule, less than or equal to 3mm 4. Thyroid nodule 5. Smoker Free Text A P: Bilateral PEPending Dr. Dooley consultation. NPO. Oxygen per protocol.Continue IV Heparin. Pending Echo cardiogram. Anemia Chronic likely secondary to menorrhagia in past treated. Type and screen.Transfuse if necessary. Pt reports no bleeding. Pending FOBT. 3mm lung nodule in left lobe of the lung. F/U with pulmonary outpatient for imaging, and further management. Smoker: Nicotine patch. Encouraged smoking cessation. 2.5 cm thyroid nodule. Pending TSH, T4. F/U outatient. DVT: Heparin.Diet: NPO Quality: Gen Med Crit Care VTE ProphylaxisVTE prophylaxis initiated: yes (Bilateral PE) Current MedicationsCurrent medication review:I attest that the foregoing medication list in the medical record is true, accurate, and complete to the best of my knowledge. 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 Mom Cervical Cancer Social HistoryAlcohol use: Denies EtOH useDrug use: Denies recreational drugs Medication/Allergy-Vaccine HxMedications:Home Medications:buPROPion HCL XL (WELLBUTRIN XL) 300 MG PO DAILY Attestations Teaching Physician Akllnyjxjia9vb visit w/o resident:I performed a history and physical examination of the patient on 07/23/22. I have reviewed the resident's note and . . . agree with the findings and plan as documented in the resident's note. agree with the findings and plan as documented in the resident's note EXCEPT: ==Acute hypoxic respiratory failure sec to bilateral PE==Pt seen after thrombectomy done by dr Dooley today. went well. specimen sent topathology. continue anticoagulation. ==pt says her sob has improved slightly as compared to before the procedure==appreciate cards recs. pending echo. -consider CT C/A/P with contrast to exclude malignancy given pre-cancerous uterin polyps at 0120 RPT #:[id number] OF REPORTHPHistory and physical cwvnfawqnpm6478-09-86S76:49:00Z.[id number] AVAvailable for patient enshRBVDCPIGYHSFWD6292-45-63J59:20:57 [facility] 2022-07-22 21:59:00 [id number]+ cHab5weS8vH+/4ZfqP5cOCdw3zoKa hYis3tcFncH52pBdUnTV4M9OxXq2706-04-47K39:59:00 [facility] ([facility])EMERGENCY PROVIDER REPORTREPORT#:[id number] REPORT STATUS: SignedDATE:07/22/22 TIME: 2158 PATIENT: MONY JONES UNIT #: [id number]#: [id number] ROOM/BED: [facility]-9AGE: 36 SEX: F PCP PHYS: Undefined ProviderSERVICE AUTHOR: David Ohara DO LOCATION: [facility] * ALL edits or amendments must be made on the electronic/computer document * HPI-Dyspnea/Wheezing Free Text HPI NotesFree Text HPI NotesPatient is a 36-year-old female with a past medical history of anemia, sleep apnea presenting with complaints of chest pain shortness of breath. Of note, patient presents as transfer from outside facility. Patient notes that over thelast 2 weeks she has had difficulty breathing. Upon chart review, the patient was noted to have presented outside facility with oxygen saturations in the mid 80s. The patient was ultimately found to have bilateral pulmonary embolisms andwas subsequently transferred to this facility for further management. The patient denies having had previous history of pulmonary emboli. The patient states having had an IUD in place. GeneralConfirmed Patient YesPatient Type New patientInitial Greet Date/Time 07/22/222121 PresentationChief Complaint Shortness of breathHx Obtained From Patient)( Sudden in Onset? NoOnset Occurred TodaySymptom Duration ConstantProgression since Onset ConstantCaused by No trauma by historyLocation NoneQuality Aching, BurningRadiationNo: Does not radiate. Severity: Onset MildSeverity: Current Mild Review of Systems Free Text ROS NotesFree Text ROS NotesContitutional: Denies chills, feverENT: Denies nasal congestionGI: Denies abdominal painGU: Denies dysuria, urinary frequencySkin: Denies rashNeurologic: Denies headacheEyes: Denies rednessRespiratory: Admits to shortness of breathCardiovascular: Denies chest painMSK: Denies back painHeme: Denies bruising Past Medical History - AdultStated Complaint PULMONARY EMBOLISMAllergiesCoded Allergies:No Known Allergies (06/24/22) Home MedicationsReported MedicationsbuPROPion HCL XL (WELLBUTRIN XL) 300 MG PO DAILY Physical Exam Vital SignsVital SignsFirst Documented: Result Date Time Pulse Ox 95 07/220 B/P 125/65 07/22 2200 B/P Mean 85 07/22 2200 O2 Delivery Nasal cannula 07/22 2200 O2 Flow Rate 3 07/22 2200 Temp 98.5 07/22 2200 Pulse 80 07/22 2200 Resp 07/22 Last Documented: Result Date Time Pulse Ox 95 07/22 2200 B/P 125/65 07/22 2200 B/P Mean 85 07/22 2200 O2 Delivery Nasal cannula 07/22 2200 O2 Flow Rate 3 07/22 2200 Temp 98.5 07/22 2200 Pulse 80 07/22 2200 Resp 07/22 Review of Vital Signs Reviewed Free Text PE NotesFree Text PE NotesGeneral: Well developed, well appearingHead: Normocephalic, atraumaticEENT: PERRL, OMINeck: SuppleChest: Regular rate and rhythmLungs: Clear to ascultation bilaterallyAbd: Soft, nontenderSkin: No visible rashNeuro: Awake, alert, moving all extremitiesMSK: No bony deformities Interpretation Diagnostics Lab Results InterpretationResultsLaboratory Tests 07/22/222152:[Embedded Image Not Available]Laboratory Tests: 07/22 Chemistry Sodium (137 - 145 MMOL/L) 138 Potassium (3.5 - 5.1 MMOL/L) 3.5 Chloride (98 - 107 MMOL/L) 102 Carbon Dioxide (22 - 30 MMOL/L) 25 Anion Gap (14 - 24 MMOL/L) 15 BUN (7 - 17 MG/DL) 9 Creatinine (0.52 - 1.04 MG/DL) 0.90 Glomerular Filtr Rate > 60 Glucose (74 - 106 MG/DL) 114 H Calcium (8.4 - 10.2 MG/DL) 8.5 Total Bilirubin (0.2 - 1.3 MG/DL) 0.5 AST (14 - 36 UNITS/L) 16 ALT (0 - 34 UNITS/L) 17 Total Alk Phosphatase (38 - 126 UNITS/L) 78 Troponin I (0.012 - 0.033 NG/ML) < 0.012 L NT-Pro-B Natriuret Pep (0 - 125 pg/mL) 2480.0 H Total Protein (6.3 - 8.2 G/DL) 6.5 Albumin (3.5 - 5.0 G/DL) 3.7 Serum , Qual (NEGATIVE) NEGATIVE Coagulation INR (0.86 - 1.14) 1.3 H APTT (26.2 - 35.4 SECONDS) 34.0 PT Patient/Control Mix (9.4 - 12.7 SECONDS) 14.4 H Hematology WBC (3.8 - 9.8 K/MM3) 8.9 RBC (3.58 - 4.97 M/MM3) 3.58 Hgb (11.2 - 14.9 G/DL) 7.1 L Hct (33.2 - 43.5 %) 26.3 L MCV (80.7 - 99.1 fL) 74 L MCH (27.0 - 34.1 pg) 19.8 L MCHC (32.2 - 35.7 %) 27.0 L RDW (12.1 - 15.2 %) 18.6 H Plt Count (129 - 368 K/MM3) 150 MPV (7.4 - 10.4 fl) 9.1 Neut % (Auto) (43 - 75 %) 67.7 Lymph % (Auto) (14 - 44 %) 22.8 [place] % (Auto) (4 - 13 %) 6.8 Eos % (Auto) (0 - 6 %) 1.6 Baso % (Auto) (0 - 2 %) 0.3 Neut # (Auto) (2.0 - 7.6 K/mm3) 6.05 Lymph # (Auto) (1.0 - 3.8 K/mm3) 2.04 [place] # (Auto) (0.1 - 0.8 K/mm3) 0.61 Eos # (Auto) (0.0 - 0.2 K/mm3) 0.14 Baso # (Auto) (0.0 - 0.2 K/mm3) 0.03 Immature Gran % (0.0 - 2.0 %) 0.8 Nucleated RBC % (0 - 1.0 %) 0.4 Nucleated RBCs # (Man) (0.0 - 0.1 K/mm3) 0.04 Platelet Estimate (ADEQUATE) ADEQUATE Plt Morphology Comment (NORMAL) NORMAL Poikilocytosis (NONE) FEW Anisocytosis (NONE) SLIGHT Microcytosis (NONE) FEW Ovalocytes (NONE) FEW Point of Care TestingPulse Oximetry Pulse Ox % 95 On: Room air Interpretation Interpreted by me, Pulse oximetry normal Time 2200 ECG #1 InterpretationText/Dict NoteNormal sinus rhythm, no acute ST segment changes, no LVH, no STEMI, normal intervals Re-Evaluation MDM )( Re-Evaluation/Progress #1)( Re-Eval Status Improved ED CourseMedication(s) OrderedMedication(s) Ordered:Central Nervous System Agents Sig/Juanita Start time Last Medication Dose Route Stop Time Status Admin Acetaminophen 650 MG Q4H PRN PRN 07/22 2205 AC PO 07/23 2103 Gastrointestinal Drugs Sig/Juanita Start time Last Medication Dose Route Stop Time Status Admin Ondansetron HCl 4 MG Q6H PRN PRN 07/22 2205 AC IV 07/23 2103 ConsultationConsultation Referral/Consult Name Leanna Dooley MD Complex Case Manager Called Surgeon Requested Call Time 2158 Requested Call Date 07/22/22 Call Returned Call returned Call Returned Time 2158 Call Returned Date 07/22/22 Complex Case Manager Will see patient Differential DiagnosisDifferential Diagnosis Acute coronary syndrome, Airway obstruction, Anxiety, Bronchitis, Cardiogenic shock, Carbon monoxide poisoning, COPD exacerbation, Dysrhythmia, Exercise-induced asthma, Inhalation injury, Myocardial infarction, Pericarditis, Pneumonia, Pneumothorax, PSVT, Upper resp infection, Vocal cord dysfunction Patient Discharge Departure Vital Signs/ConditionVital SignsFirst Documented: Result Date Time Pulse Ox 95 07/22 2200 B/P 125/65 07/220 B/P Mean 85 07/22 2200 O2 Delivery Nasal cannula 07/22 2200 O2 Flow Rate 3 07/22 2200 Temp 98.5 07/22 2200 Pulse 80 07/22 2200 Resp 22 07/22 2200 Last Documented: Result Date Time Pulse Ox 95 07/220 B/P 125/65 07/220 B/P Mean 85 07/22 2200 O2 Delivery Nasal cannula 07/22 2200 O2 Flow Rate 3 07/22 2200 Temp 98.5 07/22 2200 Pulse 80 07/22 2200 Resp 07/22 All vital signs available at the time of this entry have been reviewed. Clinical ImpressionClinical ImpressionPrimary Impression: Pulmonary embolism Disposition DecisionAdmit Admit Physician Name Guru Quiroz MD Admit Physician Hospitalist Request Time 2202 Request Date 07/22/22 )( Admission Accepts Yes )( Accepted Time 2202 )( Accepted Date 07/22/22 Call Information will see patient Critical CareTime Spent (minutes): 46Patient was critically ill due to:Pulmonary emboliMy treatment and management were:Chart review, medical management, frequent reassessments, discussion with consulting services CC Note 1Total critical care time [46] minutes. Total critical care time documented does not include time spent on separately billed procedures or the services of residents, students, nurses or physician assistants. I personally saw and examined the patient. I have reviewed all diagnostic interpretations and treatment plans as written. I was present for the dias portions of any proceduresperformed and the inclusive time noted in any critical care statement. Critical care time includes patient management by me, time spent at the patients bedside,time to review lab and imaging results, discussing patient care, documentation in the medical record, and time spent with the family or caregiver. at 2329RPT #:[id number] OF REPORTEDEmergency department [id number]:59:00Z.[id number] ilable for patient [id number]:29:42 HCAWU 2022-06-25 08:10:00 [id number]:10:00 [facility] ([facility])Full Op NoteREPORT#:[id number] REPORT STATUS: SignedDATE:06/25/22 TIME: 809 PATIENT: MONY JONES UNIT #: [id number]#: [id number] ROOM/BED:: 86 AGE: 36 SEX: F ATTEND: Delta Barriga AUTHOR: Delta Barriga MD * ALL edits or amendments must be made on the electronic/computer document * Operative ReportStart date: 06/25/22Start time: 747Pre-procedure diagnosis:MenometrorrhagiaPost-procedure diagnosis:SameProcedures performed: Hysteroscopy, D C, Mirena insertionTechnique/Procedure: After consents were reviewed and signed, the patient was taken to the operating room, where she was placed under general anesthesia without difficulty. She was then prepped and draped in the dorsal lithotomy position in the [facility]. A timeout was performed with the OR team. A red rubber catheter was used to drain the patient's bladder and few cc of urine was drained. An examination under anesthesia was performed. A weighted speculum was placed in the vagina and with the help of a right angle retractor the anterior lip of the cervix was grasped with an Allis clamp and brought forward. The uterus was sounded to 7 cm. The cervix was dilated with progressively larger Compa dilators. The hysteroscope was then inserted into the cervical canal slowly introduced into the endometrial cavity. Saline solution was used for distention. The endometrial cavity was inspected and both ostia were seen at the upper lateral aspects of the uterine cavity. No submucosal fibroids were noted. The hysteroscopy was removed and a sharp curette was introduced into the endometrialcavity. Curettage of the endometrial lining was performed. The fragments of endometrial tissue were then removed and sent for pathology. Mirena IUD was inserted to the fundus and deployed. The strings were trimmed. The Allis clamp was removed from the anterior lip of the cervix and was noted gabriela hemostatic. All instruments were removed from the vagina and bleeding was minimal. At the end of the procedure, all sponge and instrument counts were correct x 2. The anesthesia was reversed, the patient was extubated and transported to the recovery room in stable condition. Primary Surgeon: Delta BarrigaAssistant(s): noneAnesthesia: general anesthesiaOperative findings:Normal endometrial cavity with polypoidal endometrial tissue. Complications: noneEstimated blood loss in ml's: 5 ccSpecimens removed/altered: endometrial curettingsImplant(s): noneFluids:600 ccUrine output:5 ccDisposition: PACUCounts: Sponge count: correct at 0817 [facility] #:[id number] OF REPORT OPOperative [id number]:10:00F.[id number] ilable for patient [id number]:17:58 [facility]
[2024-01-08 07:34] LABS: Absolute Eosinophils 0.3 K/uL (0-0.5); Absolute Monocytes 0.5 K/uL (0.1-1.3); Absolute Neutrophil 4.1 K/uL (1.8-8.0); Basophils % 0.7 % (0-1.3); Hematocrit 36.9 % (36.0-45.0); Hemoglobin 11.8 g/dL (12.0-15.0); Lymphocytes % 17.1 % (15.3-44.8); MCHC 32.1 g/dL (32.0-36.0); MPV 6.6 fL (7.6-11.3); Monocytes % 8.8 % (3.3-12.3); Neutrophils % 68.4 % (41.7-73.7); Nucleated Red Blood Cells % 0.1 % (0-0); Platelets 266 thou/uL (152-406); RBC Red Blood Cell Count 4.39 M/uL (3.86-4.86); Red Cell Distribution Width 15.1 % (12.1-15.2)
[2024-01-08 07:57] LABS: Anion Gap 5.1 mEq/L (5.0-15.0); BUN Blood Urea Nitrogen 8 mg/dL (7-18); Bicarbonate 33 mEq/L (21-32); Glomerular Filtration Rate 90 ml/min (=/>90); Glucose Level 187 mg/dL (74-106); NT PRO-BNP 43 pg/mL (<125); Sodium Level 133 mEq/L (136-145)
[2024-01-08 07:59] LABS: Potassium 4.1 mEq/L (3.5-5.1); Troponin High Sensitivity < 3.0 pg/mL (<58.9)
--- NOTE | 2024-01-08 08:21 | RAD REPORT ---
EXAM DESCRIPTION: CT - Chest For Pe Angio - 01/08/2024 7:55 am CLINICAL HISTORY: Shortness of breath COMPARISON: None. TECHNIQUE: Dynamically enhanced axial 3 mm thick images of the chest were obtained during administra tion of 100 mL Isovue 370 IV contrast. Coronal and oblique reconstruction images were generated and r eviewed. Exam utilizes a protocol for optimal evaluation of pulmonary arterial tree. Maximum intensity projections 3D imaging was utilized All CT scans are performed using dose optimization technique as appropriate and may include automated exposure control or mA/KV adjustment according to patient size. FINDINGS: A pulmonary embolus is not seen. A thoracic aortic aneurysm is not noted. A pleural effusion is not seen. A pericardial effusion is not seen. Mild to moderate patchy bilateral lower lobe opacities Fatty liver IMPRESSION: Negative for a pulmonary embolism. Mild to moderate bilateral patchy lower lobe opacities probably pneumonia
--- NOTE | 2024-01-08 08:22 | RAD REPORT ---
EXAM DESCRIPTION: Lynn Single View01/08/2024 7:39 am CLINICAL HISTORY: Shortness of breath COMPARISON: 2018 FINDINGS: Mild right and [id number] left lower lobe opacities Heart is mildly enlarged IMPRESSION: Mild right and [id number] left lower lobe opacities probably pneumonia
--- NOTE | 2024-01-08 08:27 | ER ---
Nurse's Notes [facility] Name: Mony Jones Age: 38 yrs Sex: Female : 1985 Arrival Date: 01/08/2024 Time: 06:50 Bed 4 Private MD: Diagnosis: Sepsis, unspecified organism;Unspecified bacterial pneumonia Presentation: 01/07 07:18 Chief complaint: Patient states: she has been feeling bad for 2-3 days. patient states ap3 she has been having shortness of breath upon ambulation, and has been using her left over home oxygen bottles intermittently. Coronavirus screen: Client presents with at least one sign or symptom that may indicate coronavirus-19. Ebola Screen: No symptoms or risks identified at this time. Initial Sepsis Screen: Does the patient meet any 2 criteria? HR > 90 bpm. Does the patient have a suspected source of infection? No. Patient's initial sepsis screen is negative. Risk Assessment: Do you want to hurt yourself or someone else? Patient reports no desire to harm self or others. Onset of symptoms was January 05, 2024. 07:18 Method Of Arrival: Ambulatory ap3 07:18 Acuity: FELICIANO 3 ap3 Triage Assessment: 07:23 General: Appears ill, Behavior is calm, cooperative, appropriate for age. Pain: Denies ap3 pain. Neuro: Level of Consciousness is awake, alert, obeys commands, Oriented to person, place, time. Cardiovascular: Patient's skin is warm and dry. Respiratory: Reports shortness of breath on exertion Airway is patent Onset: The symptoms/episode began/occurred 2-3 days ago, the patient has moderate shortness of breath. Historical: - Allergies: 07:21 Heparin; ap3 - Home Meds: 07:21 "water pill" [Active]; ap3 - PMHx: 07:21 PE; ap3 - Immunization history:: Client reports having NOT received the Covid vaccine. - Infectious Disease History:: Denies. - Social history:: Smoking status: Patient/guardian denies using tobacco. Screenin:24 Abuse screen: Denies threats or abuse. Nutritional screening: No deficits noted. ap3 Tuberculosis screening: No symptoms or risk factors identified. 07:28 [facility] ED Fall Risk Assessment (Adult) History of falling in the last 3 months, ld1 including since admission No falls in past 3 months (0 pts). Assessment: 07:28 General: Appears in no apparent distress. comfortable, Behavior is calm, cooperative, ld1 appropriate for age. Pain: Denies pain. Neuro: Level of Consciousness is awake, alert, obeys commands, Oriented to person, place, time, situation. Cardiovascular: Capillary refill < 3 seconds Patient's skin is warm and dry. Rhythm is sinus rhythm. Respiratory: Reports shortness of breath at rest on exertion Airway is patent Respiratory effort is even, unlabored, Breath sounds are clear bilaterally. Onset: The symptoms/episode began/occurred gradually, the patient has mild shortness of breath. GI: Abdomen is round obese. : No signs and/or symptoms were reported regarding the genitourinary system. EENT: No signs and/or symptoms were reported regarding the EENT system. Derm: No signs and/or symptoms reported regarding the dermatologic system. Musculoskeletal: No signs and/or symptoms reported regarding the musculoskeletal system. Vital Signs: 07:18 BP 162 / 84; Pulse 93; Resp 19; Temp 98.7; Pulse Ox 90% on R/A; Weight 165.11 kg; ap3 Height 5 ft. 7 in. ; 07:24 Pulse Ox 96% on 2 lpm NC; ap3 10:01 BP 148 / 82; Pulse 81; Pulse Ox 96% on NC; mb9 07:18 Body Mass Index 57.01 (165.11 kg, 170.18 cm) ap3 ED Course: 06:55 Patient arrived in ED. gm2 07:07 Sundar La MD is Attending Physician. ec2 07:18 Anayeli Martinez RN is Primary Nurse. ap3 07:21 Triage completed. ap3 07:24 Arm band placed on right wrist. ap3 07:24 Patient has correct armband on for positive identification. Placed in gown. Bed in low ap3 position. Call light in reach. quality assurance monitor on. Pulse ox on. NIBP on. Door closed. Noise minimized. Pillow given. 07:27 Inserted saline lock: 20 gauge in left antecubital area, using aseptic technique. Blood ld1 collected. 07:28 No provider procedures requiring assistance completed. ld1 07:37 XRAY Chest (1 view) In Process Unspecified. EDMS 07:56 CT Chest For PE Angio In Process Unspecified. EDMS 08:27 Chiquis Shirley MD is Hospitalizing Provider. ec2 08:44 Blood Culture Adult (2) Sent. ld1 08:44 Lactate w/ 2H reflex if indic. Sent. ld1 10:21 Provided Education on: call light use. ap3 10:21 Patient admitted, IV remains in place. ap3 Administered Medications: 08:50 Drug: Rocephin IV 1 grams IV at calculated rate once; Given slow IV push per pharmacy ap3 instructions Route: IV; Rate: calculated rate; Site: left antecubital; 09:00 Follow up: IV Status: Completed infusion; IV Intake: 50ml ap3 09:01 Drug: AZITHromycin IVPB 500 mg IVPB once over 1 hrs; (mix in 250 mL NS) Route: IVPB; ap3 Infused Over: 1 hrs; Site: left antecubital; 09:01 Drug: NS 0.9% IV 500 ml IV at bolus once Route: IV; Rate: bolus; Site: left antecubital;ap3 Medication: 10:21 VIS not applicable for this client. ap3 Intake: 09:00 IV: 50ml; Total: 50ml. ap3 Outcome: 08:27 Decision to Hospitalize by Provider. ec2 11:20 Admitted to Med/surg room 205, mb9 11:20 Admitted to Med/surg accompanied by tech, via wheelchair, 11:20 Condition: stable 11:20 Condition: stable 11:20 Instructed on follow up and referral plans. 12:12 Patient left the ED. iw Signatures: Dispatcher [employer] EDBianca Mondragon RN RN iw Prokisch, Amanda, RN RN ap3 Antoinette Mccann RN RN ld1 Olya Stanton RN RN mb9 Sundar La MD MD ec2 Jelly Bone gm2 Corrections: (The following items were deleted from the chart) 10:22 10:01 BP 148 / 82; Pulse 81bpm; Pulse Ox 96% RA; Temp 18F; ap3 ap3 11:18 10:01 BP 148 / 82; Pulse 81bpm; Pulse Ox 96% Nasal Cannula; Temp 18F; ap3 mb9
--- NOTE | 2024-01-08 08:27 | EDPHYS ---
Physician Documentation [facility] Name: Mony Jones Age: 38 yrs Sex: Female : 1985 Arrival Date: 01/08/2024 Time: 06:50 Bed 4 Private MD: ED Physician Sundar La HPI: 01/07 07:31 This 38 yrs old Female presents to ER via Ambulatory with complaints of ec2 Breathing Difficulty, Shortness Of Breath. 07:31 Patient arrives today for evaluation of shortness of breath. Patient reports cough and ec2 cold symptoms, recent URI contacts. No vomiting, no diarrhea. Patient reports history of PE, also reports that she is on a water pill however is unsure why or which medication. Patient reports she been having cough and cold symptoms as well.. Historical: - Allergies: 07:21 Heparin; ap3 - Home Meds: 07:21 "water pill" [Active]; ap3 - PMHx: 07:21 PE; ap3 - Immunization history:: Client reports having NOT received the Covid vaccine. - Infectious Disease History:: Denies. - Social history:: Smoking status: Patient/guardian denies using tobacco. ROS: 07:31 Constitutional: as per hpi ec2 Exam: 07:31 Constitutional: GEN: NAD Head: atraumatic Eyes: EOMI Ears: External ears are ec2 normal. CV: regular rate, no lower extremity edema. LUNGS: no respiratory distress ABD: non-distended SKIN: no evidence of rashes MSK: no evidence of trauma NEURO: moves all extremities equally Vital Signs: 07:18 BP 162 / 84; Pulse 93; Resp 19; Temp 98.7; Pulse Ox 90% on R/A; Weight 165.11 kg; ap3 Height 5 ft. 7 in. ; 07:24 Pulse Ox 96% on 2 lpm NC; ap3 10:01 BP 148 / 82; Pulse 81; Pulse Ox 96% on NC; mb9 07:18 Body Mass Index 57.01 (165.11 kg, 170.18 cm) ap3 MDM: 07:08 Patient medically screened. ec2 07:31 Data reviewed: vital signs. ED course: Patient arrives today for evaluation of ec2 shortness of breath. Examination remarkable for well-appearing nontoxic individual is otherwise in no acute distress. Will obtain lab work, chest x-ray, CT scan of the chest. Evaluating for processes such as PE, viral infection, volume overload.. 07:34 ED course: EKG independently reviewed and interpreted by me, shows normal sinus rhythm, ec2 rate of 82, no acute ST segment elevations, intervals are nonconcerning.. 08:25 ED course: Metabolic CBC reassuring, BMP within normal ranges, troponin within normal ec2 ranges, chest x-ray shows likely pneumonia. CT scan of the chest shows likely pneumonia. Will give antibiotics, will admit given patient's hypoxia. . 01/07 07:08 Order name: Basic Metabolic Panel; Complete Time: 08:24 ec2 01/07 07:08 Order name: CBC with Diff; Complete Time: 08:24 ec2 01/07 07:08 Order name: NT PRO-BNP; Complete Time: 08:24 ec2 01/07 07:08 Order name: Troponin HS; Complete Time: 08:24 ec2 01/07 08:26 Order name: Blood Culture Adult (2) 01/07 08:26 Order name: Lactate w/ 2H reflex if indic. 01/07 07:08 Order name: XRAY Chest (1 view); Complete Time: 08:24 ec2 01/07 07:33 Order name: CT Chest For PE Angio; Complete Time: 08:24 ec01/07 07:08 Order name: EKG; Complete Time: 07:09 ec01/07 07:08 Order name: Cardiac monitoring; Complete Time: 07:20 01/07 07:08 Order name: EKG - Nurse/Tech; Complete Time: 07:20 01/07 07:08 Order name: IV Saline Lock; Complete Time: 07:27 ec01/07 07:08 Order name: Labs collected and sent; Complete Time: 07:27 ec01/07 07:08 Order name: O2 Per Protocol; Complete Time: 07:20 ec01/07 07:08 Order name: O2 Sat Monitoring; Complete Time: 07:20 ec01/07 08:26 Order name: Accucheck; Complete Time: 08:27 ec01/07 08:26 Order name: IV Saline Lock - Large Bore; Complete Time: 08:27 ec01/07 08:26 Order name: Vital Signs; Complete Time: 08:27 ec2 Administered Medications: 08:50 Drug: Rocephin IV 1 grams IV at calculated rate once; Given slow IV push per pharmacy ap3 instructions Route: IV; Rate: calculated rate; Site: left antecubital; 09:00 Follow up: IV Status: Completed infusion; IV Intake: 50ml ap3 09:01 Drug: AZITHromycin IVPB 500 mg IVPB once over 1 hrs; (mix in 250 mL NS) Route: IVPB; ap3 Infused Over: 1 hrs; Site: left antecubital; 09:01 Drug: NS 0.9% IV 500 ml IV at bolus once Route: IV; Rate: bolus; Site: left antecubital;ap3 Disposition: 08:26 Critical Care:. ec2 Disposition Summary: 01/08/24 08:27 Hospitalization Ordered Notes: Hospitalization Status: Inpatient Admission ec2 Provider: Chiquis Shirley ec2 Location: Telemetry/[facility] (Inpatient) ec2 Condition: Stable ec2 Problem: new ec2 Symptoms: have improved ec2 Bed/Room Type: Standard ec2 Room Assignment: 205(01/08/24 10:58) bc6 Diagnosis - Sepsis, unspecified organism ec2 - Unspecified bacterial pneumonia ec2 Forms: - Medication Reconciliation Form ec2 - SBAR form ec2 - Leadership Thank You Letter ec2 Critical care time excluding procedures: 08:26 Critical care time: Bedside Care: 30 minutes, Consultation: 5 minutes. Total time: 35 ec2 minutes Signatures: Dispatcher [employer] Anayeli Dueñas RN RN ap3 Nickie Arevalo bc6 Sundar La MD MD ec2 Corrections: (The following items were deleted from the chart) 07:33 07:33 Chest For PE Angio+CT.RAD.BRZ ordered. EDAZ EDAZ 10:58 08:27 ec2 bc6
[2024-01-08] MEDS ORDERED: CEFTRIAXONE 1000 MG/VIAL ONE (08:34)
[2024-01-08] MEDS ORDERED: NA CHLORIDE 0.9% 250 ML ONE (08:34)
[2024-01-08] MEDS ORDERED: AZITHROMYCIN 500 MG INJ IVPB ONE (08:34)
--- NOTE | 2024-01-08 08:34 | P.HP ---
Certification for Inpatient Patient admitted to: Inpatient With expected LOS: <2 Midnights <Kaila Russo - Last Filed: 01/08/24 09:27> Patient History Date of Service: 01/08/24 Reason for admission: Pneumonia History of Present Illness: 38-year-old female with a past medical history of pulmonary embolism 22 previously on Eliquis, hypertension, prediabetes presents to the emergency room with shortness of breath, she reports symptoms worse with exertion, worse while laying flat. She reports recent upper respiratory infection, she reports recent exposure to child with cold, strep infection. She reports wheezing, low-grade fever, weakness, chills, productive cough. She denies nausea vomiting abdominal pain, chest pain, plan to admit for pneumonia, acute hypoxic respiratory failure secondary to pneumonia,, IV antibiotics azithromycin and ceftriaxone, albuterol nebs, O2. Flu, COVID, RSV, sputum culture pending laboratory evaluation EKG ST abnormality, no STEMI, rate 82, CT of the chest negative for pulmonary embolism, ild to moderate bilateral patchy lower lobe opacities probably pneumoniaBP 162 / 84; Pulse 93; Resp 19; Temp 98.7; Pulse Ox 90% on R/A; Weight 165.11 kg; Height 5 ft. 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, no use of tobacco, no use of EtOH - Social History Smoking Status: Former smoker Alcohol use: No CD- Drugs: No Caffeine use: Yes Place of Residence: Home <Kaila Russo - Last Filed: 01/08/24 09:27> Date of Service: 01/08/24 <Chiquis Shirley - Last Filed: 01/22/24 23:46> Allergies heparin Allergy (Mild, Verified 01/08/24 13:34) Itching Home Medications: Furosemide [Lasix*] 20 mg PO DAILY 01/08/24 Albuterol Inhaler [Ventolin Inhaler*] 2 puff IH Q6H PRN 7 Days #1 inh 01/10/24 Albuterol Neb [Proventil 0.083% Neb Soln] 2.5 mg NEB [id number] PRN 10 Days #1 box 01/10/24 Cefdinir [Cefdinir*] 300 mg PO BID 7 Days #14 cap 01/10/24 Nebulizer Accessories [Adult Aerosol Mask] 1 each MC DAILY PRN #1 ea 01/10/24 Nebulizer and Compressor [[place] Choice Nebulizer] 1 each MC DAILY PRN 10 Days #1 ea 01/10/24 Review of Systems Per HPI <HaiderKaila gunter - Last Filed: 01/08/24 09:27> Physical Examination - Physical Exam General: Alert, In no apparent distress, Mild distress, Obese HEENT: Atraumatic, Normocephalic Neck: Supple, JVD not distended Respiratory: Normal air movement, Expiratory wheezes, Inspiratory wheezes, Other (Orthopnea, on nasal cannula) Cardiovascular: Regular rate/rhythm, Normal S1 S2 Capillary refill: <2 Seconds Gastrointestinal: Normal bowel sounds, Soft and benign Musculoskeletal: No clubbing, No swelling Integumentary: No rashes, No breakdown Neurological: Normal speech, Normal strength at 5/5 x4 extr - Studies Laboratory Data (last 24 hrs) 01/08/24 01/08/24 07:24 07:24 WBC 5.90 Hgb 11.8 L Hct 36.9 Plt Count 266 Sodium 133 L Potassium 4.1 BUN 8 Creatinine 0.85 Glucose 187 H <KaranKaila - Last Filed: 01/08/24 09:27> Assessment and Plan - Plan Assessment plan Bilateral lobe pneumonia, acute hypoxic respiratory failure secondary to pneumonia, IV antibiotics azithromycin and ceftriaxone, albuterol nebs, O2. Flu, COVID, RSV, sputum culture pending presents to the emergency room with shortness of breath, she reports symptoms worse with exertion, worse while laying flat. She reports recent upper respiratory infection, she reports recent exposure to child with cold, strep infection. She reports wheezing, low-grade fever, weakness, chills, productive cough. CT of the chest negative for pulmonary embolism, ild to moderate bilateral patchy lower lobe opacities probably pneumonia Repeat chest x-ray in the a.m. to evaluate resolution History pulmonary embolism 2011 treated with Eliquis previously, hypertension uncontrolled Telemetry, As needed antihypertensive EKG ST abnormality, no STEMI, rate 82, BP 162 / 84; Pulse 93; Resp 19; Temp 98.7; Pulse Ox 90% on R/A; Weight 165.11 kg; Height 5 ft. 7 in Morbid obesity prediabetes diet controlled A1c in the a.m. Accu-Cheks, sliding scale insulin Diabetic diet Full code DVT Lovenox Disposition Home independent prior , Discharge Plan: Home - Advance Directives Does patient have a Living Will: No Does patient have a Durable POA for Healthcare: No - Code Status/Comfort Care Code Status: Full Code Critical Care: No Time Spent Managing Pts Care (In Minutes): 55 <Kaila Russo - Last Filed: 01/08/24 09:27> Date of Service: 01/08/24 Patient was seen and examined. Events of the last 24 hours have been noted. Spoke with with GELY regarding patient's clinical picture after evaluating and examining the patient independently. I performed a substantial part of the MDM during this patient's care today. I personally made or approved the documented management plan and acknowledge its risk of complications. I agree with the findings and documentation provided in the GELY's notes. <Chiquis Shirley - Last Filed: 01/22/24 23:46>
[2024-01-08] MEDS ORDERED: NA CHLORIDE 0.9% 50 ML ONE (08:35)
[2024-01-08] MEDS ORDERED: NA CHLORIDE 0.9% 500 ML ONE (08:35)
[2024-01-08] MEDS ORDERED: MORPHINE 2 MG/ML SYR IV PRN (08:46)
[2024-01-08] MEDS ORDERED: METOPROLOL TARTRATE 5 MG/5 ML INJ IV PRN (12:49)
[2024-01-08] MEDS ORDERED: ACETAMINOPHEN 500 MG TAB PO PRN (12:49)
[2024-01-08] MEDS ORDERED: ZOLPIDEM TARTRATE 5 MG TABLET PO PRN (12:49)
[2024-01-08] MEDS ORDERED: ONDANSETRON 4 MG/2 ML VIAL IV PRN (12:49)
[2024-01-08] MEDS ORDERED: ALBUTEROL 2.5 MG/3 ML NEB SOL NEB PRN (12:49)
[2024-01-08] MEDS ORDERED: BENZONATATE 100 MG CAP PO PRN (12:49)
[2024-01-08] MEDS: AZITHROMYCIN IV 500 MG in NA CHLORIDE 0.9% 250 ML IVPB SCH (13:00)
[2024-01-08] MEDS: CEFTRIAXONE 1,000 MG in NA CHLORIDE 0.9% 50 ML IVPB SCH (13:05)
[2024-01-08] MEDS: ENOXAPARIN 40 MG/0.4 ML SQ SCH (13:30)
[2024-01-08] MEDS: NA CHLORIDE 0.9% 1,000 ML IV SCH ×2 (13:31→17:38)
[2024-01-08 13:48] VITALS: BMI 56.9
[2024-01-08 16:47] LABS: INFLUENZA A NAA NEGATIVE (NEGATIVE); RESPIRATORY SYNCYTIAL VIR NAA NEGATIVE (NEGATIVE); SARS-COV-2 RT PCR NEGATIVE (NEGATIVE)
[2024-01-09] MEDS: ALBUTEROL 2.5 MG/3 ML NEB SOL NEB PRN (01:01)
[2024-01-09 03:51] LABS: Absolute Basophils 0.1 K/uL (0-0.5); Absolute Eosinophils 0.3 K/uL (0-0.5); Absolute Lymphocytes (CBC) 1.8 K/uL (0.7-4.9); Absolute Monocytes 0.6 K/uL (0.1-1.3); Absolute Neutrophil 2.8 K/uL (1.8-8.0); Basophils % 0.9 % (0-1.3); Eosinophils % 5.1 % (0-4.4); Hematocrit 36.5 % (36.0-45.0); Hemoglobin 11.7 g/dL (12.0-15.0); Lymphocytes % 32.3 % (15.3-44.8); MCH 27.3 pg (27.0-35.0); MCHC 32.1 g/dL (32.0-36.0); MCV 85.1 fL (80-100); MPV 6.9 fL (7.6-11.3); Monocytes % 10.4 % (3.3-12.3); Neutrophils % 51.3 % (41.7-73.7); Nucleated Red Blood Cells % 0.2 % (0-0); Platelets 262 thou/uL (152-406); RBC Red Blood Cell Count 4.28 M/uL (3.86-4.86); Red Cell Distribution Width 15.1 % (12.1-15.2)
[2024-01-09 04:08] LABS: Anion Gap 3.1 mEq/L (5.0-15.0); Magnesium 2.4 mg/dL (1.6-2.4); Potassium 4.1 mEq/L (3.5-5.1)
--- NOTE | 2024-01-09 07:07 | RAD REPORT ---
EXAM DESCRIPTION: RAD - Chest Single View - 01/09/2024 5:18 am CLINICAL HISTORY: eval pna COMPARISON: Chest Single View dated 01/08/2024; Chest Single View dated 03/09/2018; Chest Pa And Lat ( 2 Views) dated 09/25/2017; Chest Pa And Lat (2 Views) dated 06/10/2017; Chest For Pe Angio dated 024 FINDINGS: Lines: None. Lungs: Airspace disease in the lung bases bilaterally similar to the prior chest radiograph. Pleural: No significant pleural effusions or pneumothorax. Cardiac: Similar size and configuration. Mediastinum: Within normal limits. Bones: No acute fractures. Other: None IMPRESSION: No significant change in basilar airspace disease, either pneumonitis or pneumonia.
[2024-01-09 08:26] LABS: Calcium Oxalate Crystals- Ur Few /HPF (None Seen); Specific Gravity > 1.030 (1.005-1.030); Urine Bacteria None Seen /HPF (<20); Urine Bilirubin NEGATIVE (Negative); Urine Blood Negative (Negative); Urine Clarity Extremely Turbid (Clear); Urine Color Light-Orange (Yellow); Urine Culture Reflex Order NOT NEEDED; Urine Glucose TRACE (Negative); Urine Ketones TRACE (Negative); Urine Microscopic Reflex YN ORDER UMIC; Urine Mucus 2+ /HPF (None Seen); Urine Nitrite NEGATIVE (Negative); Urine Protein 1+ (Negative); Urine RBC <5 /HPF (None Seen); Urine Urobilinogen 2+ (Normal); Urine WBC <5 /HPF (<5)
--- NOTE | 2024-01-09 13:21 | P.PN ---
Subjective Date of Service: 01/09/24 Chief Complaint: Pneumonia Admitted for pneumonia, Room air sats documented at 90%, Repeat KUB no significant change - Physical Exam General: Alert, In no apparent distress, Mild distress, Obese HEENT: Atraumatic, Normocephalic Neck: Supple, JVD not distended Respiratory: Normal air movement, Expiratory wheezes, Inspiratory wheezes, Other (Orthopnea, on nasal cannula) Cardiovascular: Regular rate/rhythm, Normal S1 S2 Capillary refill: <2 Seconds Gastrointestinal: Normal bowel sounds, Soft and benign Musculoskeletal: No clubbing, No swelling Integumentary: No rashes, No breakdown Neurological: Normal speech, Normal strength at 5/5 x4 extr <Kaila Russo - Last Filed: 01/09/24 13:19> Date of Service: 01/09/24 <Chiquis Shirley - Last Filed: 01/22/24 23:47> Review of Systems Per HPI <Kaila Russo - Last Filed: 01/09/24 13:19> Physical Examination - Vital Signs Temperature: 97.0 F Blood Pressure: 162/76 Pulse: 81 Respirations: 18 Pulse Ox (%): 90 <Kaila Russo - Last Filed: 01/09/24 13:19> Assessment And Plan - Plan Assessment plan Bilateral lobe pneumonia, acute hypoxic respiratory failure secondary to pneumonia, IV antibiotics azithromycin and ceftriaxone, albuterol nebs, O2. Flu, COVID, RSV, sputum culture pending presents to the emergency room with shortness of breath, she reports symptoms worse with exertion, worse while laying flat. She reports recent upper respiratory infection, she reports recent exposure to child with cold, strep infection. She reports wheezing, low-grade fever, weakness, chills, productive cough. CT of the chest negative for pulmonary embolism, ild to moderate bilateral patchy lower lobe opacities probably pneumonia Repeat chest x-ray in the a.m. to evaluate resolution Chest x-ray 1 view no significant change 01/08 room air sats 90% will add steroids to medication regimen History pulmonary embolism 2010 treated with Eliquis previously, hypertension uncontrolled Telemetry, As needed antihypertensive EKG ST abnormality, no STEMI, rate 82, BP 162 / 84; Pulse 93; Resp 19; Temp 98.7; Pulse Ox 90% on R/A; Weight 165.11 kg; Height 5 ft. 7 in Morbid obesity prediabetes diet controlled A1c in the a.m. Accu-Cheks, sliding scale insulin Diabetic diet Full code DVT Lovenox Disposition Home independent prior , Discharge Plan: Home - Code Status/Comfort Care Code Status: Full Code Critical Care: No Time Spent Managing PTS Care (In Minutes): 35 <Kaila Russo - Last Filed: 01/09/24 13:19> Date of Service: 01/09/24 Patient was seen and examined. Events of the last 24 hours have been noted. Spoke with with GELY regarding patient's clinical picture after evaluating and examining the patient independently. I performed a substantial part of the MDM during this patient's care today. I personally made or approved the documented management plan and acknowledge its risk of complications. I agree with the findings and documentation provided in the GELY's notes. <Chiquis Shirley - Last Filed: 01/22/24 23:47>
[2024-01-09] MEDS ORDERED: GLUCAGON 1 MG/VIAL IM PRN (13:29)
[2024-01-09] MEDS ORDERED: D50W 25 GM/50 ML SYRINGE IV PRN (13:29)
[2024-01-09] MEDS: METHYLPREDNISOLONE 125 MG INJ IV ONE (13:41)
--- NOTE | 2024-01-09 14:39 | EKG ---
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
[2024-01-09] MEDS: INSULIN LISPRO 100 UNIT/ML SQ SCH (16:24)
[2024-01-09] MEDS: METHYLPREDNISOLONE 125 MG INJ IV SCH (17:09)
[2024-01-09] MEDS: IPRATROPIUM BROM 0.5MG/2.5ML NEB PRN (21:26)
[2024-01-10 04:03] LABS: Absolute Lymphocytes (CBC) 0.7 K/uL (0.7-4.9); Absolute Monocytes 0.1 K/uL (0.1-1.3); Absolute Neutrophil 6.9 K/uL (1.8-8.0); Basophils % 0.3 % (0-1.3); Eosinophils % 0.1 % (0-4.4); Hematocrit 39.2 % (36.0-45.0); Hemoglobin 12.2 g/dL (12.0-15.0); Lymphocytes % 9.6 % (15.3-44.8); MCH 26.6 pg (27.0-35.0); MCHC 31.2 g/dL (32.0-36.0); MCV 85.1 fL (80-100); MPV 7.3 fL (7.6-11.3); Monocytes % 1.7 % (3.3-12.3); Neutrophils % 88.3 % (41.7-73.7); Platelets 289 thou/uL (152-406); RBC Red Blood Cell Count 4.61 M/uL (3.86-4.86); Red Cell Distribution Width 14.5 % (12.1-15.2)
[2024-01-10 04:22] LABS: Anion Gap 9.1 mEq/L (5.0-15.0); Magnesium 2.4 mg/dL (1.6-2.4); Potassium 4.1 mEq/L (3.5-5.1)
--- NOTE | 2024-01-10 07:38 | P.PN ---
Subjective Date of Service: 01/10/24 Chief Complaint: Pneumonia Admitted for pneumonia, Improved to 94% on room air - Physical Exam General: Alert, In no apparent distress, Mild distress, Obese HEENT: Atraumatic, Normocephalic Neck: Supple, JVD not distended Respiratory: Normal air movement, Expiratory wheezes, Inspiratory wheezes, Other (Orthopnea, on nasal cannula) Cardiovascular: Regular rate/rhythm, Normal S1 S2 Capillary refill: <2 Seconds Gastrointestinal: Normal bowel sounds, Soft and benign Musculoskeletal: No clubbing, No swelling Integumentary: No rashes, No breakdown Neurological: Normal speech, Normal strength at 5/5 x4 extr Review of Systems Per HPI Physical Examination - Vital Signs Temperature: 96.9 F Blood Pressure: 145/67 Pulse: 68 Respirations: 20 Pulse Ox (%): 94 Assessment And Plan - Plan Assessment plan Bilateral lobe pneumonia, acute hypoxic respiratory failure secondary to pneumonia, IV antibiotics azithromycin and ceftriaxone, albuterol nebs, O2. Flu, COVID, RSV, sputum culture pending presents to the emergency room with shortness of breath, she reports symptoms worse with exertion, worse while laying flat. She reports recent upper respiratory infection, she reports recent exposure to child with cold, strep infection. She reports wheezing, low-grade fever, weakness, chills, productive cough. CT of the chest negative for pulmonary embolism, ild to moderate bilateral patchy lower lobe opacities probably pneumonia Repeat chest x-ray in the a.m. to evaluate resolution Chest x-ray 1 view no significant change 01/08 room air sats 90% will add steroids to medication regimen History pulmonary embolism resolved 2010 treated with Eliquis previously, hypertension uncontrolled Telemetry, As needed antihypertensive EKG ST abnormality, no STEMI, rate 82, BP 162 / 84; Pulse 93; Resp 19; Temp 98.7; Pulse Ox 90% on R/A; Weight 165.11 kg; Height 5 ft. 7 in Morbid obesity prediabetes diet controlled A1c in the a.m. Accu-Cheks, sliding scale insulin Diabetic diet Full code DVT Lovenox Disposition Home independent prior , Discharge Plan: Home Critical Care: No Time Spent Managing PTS Care (In Minutes): 35
--- NOTE | 2024-01-10 09:05 | P.DS ---
Admission Date: 01/08/24 Discharge Date: 01/11/24 Reason for Admission: Pneumonia Brief History of Present Illness: 38-year-old female with a past medical history of pulmonary embolism 22 previously on Eliquis, hypertension, prediabetes presents to the emergency room with shortness of breath, she reports symptoms worse with exertion, worse while laying flat. She reports recent upper respiratory infection, she reports recent exposure to child with cold, strep infection. She reports wheezing, low-grade fever, weakness, chills, productive cough. She denies nausea vomiting abdominal pain, chest pain, plan to admit for pneumonia, acute hypoxic respiratory failure secondary to pneumonia,, IV antibiotics azithromycin and ceftriaxone, albuterol nebs, O2. Flu, COVID, RSV, sputum culture pending laboratory evaluation EKG ST abnormality, no STEMI, rate 82, CT of the chest negative for pulmonary embolism, ild to moderate bilateral patchy lower lobe opacities probably pneumoniaBP 162 / 84; Pulse 93; Resp 19; Temp 98.7; Pulse Ox 90% on R/A; Weight 165.11 kg; Height 5 ft. 7 in - Physical Exam General: Alert, In no apparent distress, Mild distress, Obese HEENT: Atraumatic, Normocephalic Neck: Supple, JVD not distended Respiratory: Normal air movement, Expiratory wheezes, Inspiratory wheezes, Other (Orthopnea, on nasal cannula) Cardiovascular: Regular rate/rhythm, Normal S1 S2 Capillary refill: <2 Seconds Gastrointestinal: Normal bowel sounds, Soft and benign Musculoskeletal: No clubbing, No swelling Integumentary: No rashes, No breakdown Neurological: Normal speech, Normal strength at 5/5 x4 extr Hospital Course: 38-year-old female with a past medical history of pulmonary embolism 22 previously on Eliquis, hypertension, prediabetes presents to the emergency room with shortness of breath, she reports symptoms worse with exertion, worse while laying flat. Was noted to have pneumonia, Condition improved with IV antibiotics, steroids, oxygen,.Patient tolerating diet, stable for discharge to home with follow-up appointment with primary care physician. PROBLEM: Pneumonia symptoms improved with antibiotics, CT of the chest negative for pulmonary embolism, ild to moderate bilateral patchy lower lobe opacities probably pneumonia Chest x-ray IMPRESSION: Mild right and [id number] left lower lobe opacities probably pneumonia Will discharge home with p.o. antibiotics, albuterol inhaler, Plan to resume home O2 with a [employer] order sent Continue home medicines as previously prescribed GOAL: Clear understanding of disease process INSTRUCTIONS: Physician Discharge Instructions: -Follow-up with PCP in 1 to 2 weeks -Please call Dr. Shirley at [phone] if any questions regarding hospital stay -Please call nursing station at [phone] if any nursing or medication questions -Return to the emergency room if symptoms worsen Diet: ADA, low sodium Activity: Fall precautions <Kaila Russo - Last Filed: 01/11/24 14:21> Admission Date: 01/08/24 Discharge Date: 01/10/24 Hospital Course: Patient was seen and examined. Events of the last 24 hours have been noted. Spoke with with GELY regarding patient's clinical picture after evaluating and examining the patient independently. I performed a substantial part of the MDM during this patient's care today. I personally made or approved the documented management plan and acknowledge its risk of complications. I agree with the findings and documentation provided in the GELY's notes. Patient has done well during hospital stay. Clinically, patient is much better. At this time, patient is stable for discharge home. Patient will follow-up with consultants and PCP as an outpatient. <Chiquis Shirley - Last Filed: 01/22/24 23:48> Disposition: [place] HOME/HOME HEALTH CARE Discharge Condition: GOOD Vital Signs/Physical Exam: Temp Pulse Resp BP Pulse Ox 96.7 F L 58 18 145/65 H 91 01/10/24 07:56 01/10/24 07:56 01/10/24 07:56 01/10/24 07:56 01/10/24 07:56 Laboratory Data at Discharge: WBC 7.80 thou/uL (4.3-10.9) 01/10/24 03:29 Hgb 12.2 g/dL (12.0-15.0) 01/10/24 03:29 Hct 39.2 % (36.0-45.0) 01/10/24 03:29 Plt Count 289 thou/uL (152-406) 01/10/24 03:29 Sodium 135 mEq/L (136-145) L 01/10/24 03:29 Potassium 4.1 mEq/L (3.5-5.1) 01/10/24 03:29 BUN 9 mg/dL (7-18) 01/10/24 03:29 Creatinine 0.82 mg/dL (0.55-1.02) 01/10/24 03:29 Glucose 315 mg/dL (74-106) H 01/10/24 03:29 Magnesium 2.4 mg/dL (1.6-2.4) 01/10/24 03:29 <Kaila Russo - Last Filed: 01/11/24 14:21> Vital Signs/Physical Exam: Temp Pulse Resp BP Pulse Ox 96.8 F 74 18 153/66 H 92 01/10/24 16:00 01/10/24 16:00 01/10/24 16:00 01/10/24 16:00 01/10/24 16:00 General: Alert, In no apparent distress, Oriented x3 Laboratory Data at Discharge: WBC 7.80 thou/uL (4.3-10.9) 01/10/24 03:29 Hgb 12.2 g/dL (12.0-15.0) 01/10/24 03:29 Hct 39.2 % (36.0-45.0) 01/10/24 03:29 Plt Count 289 thou/uL (152-406) 01/10/24 03:29 Sodium 135 mEq/L (136-145) L 01/10/24 03:29 Potassium 4.1 mEq/L (3.5-5.1) 01/10/24 03:29 BUN 9 mg/dL (7-18) 01/10/24 03:29 Creatinine 0.82 mg/dL (0.55-1.02) 01/10/24 03:29 Glucose 315 mg/dL (74-106) H 01/10/24 03:29 Magnesium 2.4 mg/dL (1.6-2.4) 01/10/24 03:29 <Chiquis Shirley - Last Filed: 01/22/24 23:48> Diet: Renal Time spent managing pt's care (in minutes): 55 <Kaila Russo - Last Filed: 01/11/24 14:21> <Chiquis Shirley - Last Filed: 01/22/24 23:48> Home Medications: Furosemide [Lasix*] 20 mg PO DAILY 01/08/24 Albuterol Inhaler [Ventolin Inhaler*] 2 puff IH Q6H PRN 7 Days #1 inh 01/10/24 Albuterol Neb [Proventil 0.083% Neb Soln] 2.5 mg NEB [id number] PRN 10 Days #1 box 01/10/24 Cefdinir [Cefdinir*] 300 mg PO BID 7 Days #14 cap 01/10/24 Nebulizer Accessories [Adult Aerosol Mask] 1 each MC DAILY PRN #1 ea 01/10/24 Nebulizer and Compressor [[place] Nebulizer] 1 each MC DAILY PRN 10 Days #1 ea 01/10/24 New Medications: Nebulizer Accessories [Adult Aerosol Mask] 1 each MC DAILY PRN #1 ea PRN Reason: Shortness Of Breath Cefdinir [Cefdinir*] 300 mg PO BID 7 Days #14 cap Nebulizer and Compressor [[place] Nebulizer] 1 each MC DAILY PRN 10 Days #1 ea PRN Reason: Shortness Of Breath Albuterol Neb [Proventil 0.083% Neb Soln] 2.5 mg NEB [id number] PRN 10 Days #1 box PRN Reason: Shortness Of Breath Albuterol Inhaler [Ventolin Inhaler*] 2 puff IH Q6H PRN 7 Days #1 inh PRN Reason: Shortness Of Breath Physician Discharge Instructions: 38-year-old female with a past medical history of pulmonary embolism 22 previously on Eliquis, hypertension, prediabetes presents to the emergency room with shortness of breath, she reports symptoms worse with exertion, worse while laying flat. Was noted to have pneumonia, Condition improved with IV antibiotics, steroids, oxygen,.Patient tolerating diet, stable for discharge to home with follow-up appointment with primary care physician. PROBLEM: Pneumonia symptoms improved with antibiotics, CT of the chest negative for pulmonary embolism, ild to moderate bilateral patchy lower lobe opacities probably pneumonia Chest x-ray IMPRESSION: Mild right and [id number] left lower lobe opacities probably pneumonia Will discharge home with p.o. antibiotics, albuterol inhaler, inhaler Continue home medicines as previously prescribed GOAL: Clear understanding of disease process INSTRUCTIONS: Physician Discharge Instructions: -Follow-up with PCP in 1 to 2 weeks -Please call Dr. Shirley at [phone] if any questions regarding hospital stay -Please call nursing station at [phone] if any nursing or medication questions -Return to the emergency room if symptoms worsen Diet: ADA, low sodium Activity: Fall precautions Followup: Lucita Jason MD [Primary Care Provider] -
[2024-01-10 11:13] VITALS: O2SAT 93
[2024-01-10 11:36] VITALS: TEMP 96.8
[2024-01-10 16:20] VITALS: BP 153/66
== END 2024-01-10 18:04 | disposition home health service (06) | DRG 871 ==
LOC: ER 06:50 → ERHOLD 08:39 → 2ND 12:07
PROVIDERS: ADMIT Hospitalist; ATTEND Hospitalist
DX: A41.9 Sepsis, unspecified organism (principal); J18.9 Pneumonia, unspecified organism; J96.01 Acute respiratory failure with hypoxia; Z68.43 Body mass index [BMI] 50.0-59.9, adult; E87.1 Hypo-osmolality and hyponatremia; E66.01 Morbid (severe) obesity due to excess calories; I10 Essential (primary) hypertension; R73.03 Prediabetes; Z88.8 Allergy status to other drugs, medicaments and biological substances; Z79.01 Long term (current) use of anticoagulants; Z11.52 Encounter for screening for COVID-19; Z28.310 Unvaccinated for COVID-19; Z86.711 Personal history of pulmonary embolism; Z87.891 Personal history of nicotine dependence
CPT/HCPCS: 0241U; 36415; 71045; 71275; 80048; 81001; 82947; 83605; 83735; 83880; 84145; 84484; 85025; 87040; 87070; 87205; 93005; 94640; 94760; 96374; 96375; 99285; J0696; J1650; J1815; J2919; J7030; J7040; J7050; J7613; J7644; Q9967